=== PATIENT | female | born 1955 ===

== ENCOUNTER 2020-08-27 12:18 | Outpatient (REF) | payer MEDICARE, MEDICAID, SELFPAY ==
--- NOTE | 2020-08-27 | MM_ITS ---
EXAMINATION: MM SCREENING DIGITAL BREAST TOMOSYNTHESIS, BILATERAL CLINICAL INFORMATION: Screening. Asymptomatic. The lifetime risk of breast cancer based on the Tyrer-Cuzick Model is 7.6%. COMPARISON: Mammography: April 22, 2019 and studies dating back to August 24, 2010 TECHNIQUE: Digital breast tomosynthesis is performed in both the craniocaudal and mediolateral oblique views along with computer-aided detection (CAD). Synthesized 2D images are generated from the tomosynthesis. FINDINGS: The breasts are heterogeneously dense, which may obscure small masses (ACR BI-RADS breast composition Category c). There is a stable parenchymal pattern of the right breast with no new abnormal dominant masses or suspicious grouping of microcalcifications. Within the upper outer aspect of the left breast there are again noted be calcifications but which appear to be more indeterminate and spot magnification views are recommended. There is also noted to be some left axillary residual deodorant. MM/MM tomosynthesis screening BI IMPRESSION: Left breast calcifications upper outer aspect for further evaluation as described. ASSESSMENT: BI-RADS 0: Incomplete - Need Additional Imaging Evaluation RECOMMENDATION: 1. Additional views of the left breast 2. Targeted ultrasound if warranted after review of the additional views. 3. Radiology department staff will contact the patient for additional imaging. This patient's information was entered into a reminder system with a target due date for their next mammogram.
== END 2020-08-27 12:19 | disposition home or self-care (01) ==
LOC: HO.MAMMO 12:18
PROVIDERS: PCP Internal Medicine; Visit Provider Internal Medicine
DX: Z12.31 Encounter for screening mammogram for malignant neoplasm of breast (principal)
CPT/HCPCS: 77063; 77067

== ENCOUNTER 2020-09-25 10:04 | Outpatient (REF) | payer MEDICARE, MEDICAID, SELFPAY ==
[2020-09-25 11:13] LABS: Alanine Aminotransferase 27 U/L (0-31); Albumin Level 4.5 g/dL (3.5-5.0); Alkaline Phosphatase 58 U/L (39-117); Aspartate Amino Transferase 17 U/L (5-31); Bilirubin Direct 0.2 mg/dL (0.0-0.5); Bilirubin Total 0.5 mg/dL (0.0-1.0); Total Protein 7.4 g/dL (6.5-8.0)
[2020-09-25 11:17] LABS: Valproate 59.4 mcg/mL (50.0-100.0)
[2020-09-25 11:34] LABS: Ammonia 31 umol/L (13-55)
== END 2020-09-25 10:05 | disposition home or self-care (01) ==
LOC: HO.LAB 10:04
PROVIDERS: PCP Internal Medicine; Visit Provider General Practice
DX: F25.9 Schizoaffective disorder, unspecified (principal); Z79.899 Other long term (current) drug therapy
CPT/HCPCS: 80076; 80164; 82140

== ENCOUNTER 2020-10-02 15:02 | Outpatient (REF) | payer MEDICARE, MEDICAID, SELFPAY ==
--- NOTE | 2020-10-02 15:11 | MM_ITS ---
EXAMINATION: MM DIAGNOSTIC DIGITAL MAMMOGRAPHY, LEFT CLINICAL INFORMATION: Calcifications upper outer aspect COMPARISON: Mammography: August 27, 2020 and studies dating back to November 08, 2011 TECHNIQUE: Digital mammography is performed in the following views: Magnification views of the left breast in craniocaudal, 90 degree mediolateral, and exaggerated craniocaudal views. FINDINGS: The breasts are heterogeneously dense, which may obscure small masses (ACR BI-RADS breast composition Category c). Magnification views appear to show more calcifications than previously however there have calcifications present dating back to November 08, 2011. On 90 degree mediolateral view there is layering of milk of calcium on a majority of calcifications. No branching forms are identified. Results are provided to the patient at time of visit by the technologist. MM/MM added views LT IMPRESSION: Probably benign calcifications right breast ASSESSMENT: BI-RADS 3: Probably Benign RECOMMENDATION: Diagnostic mammography in 6 months. This patient's information was entered into a reminder system with a target due date for their next mammogram.
== END 2020-10-02 15:03 | disposition home or self-care (01) ==
LOC: HO.MAMMO 15:02
PROVIDERS: PCP Internal Medicine; Visit Provider Internal Medicine
DX: R92.1 Mammographic calcification found on diagnostic imaging of breast (principal)
CPT/HCPCS: 77065

== ENCOUNTER 2021-01-17 09:10 | Outpatient (REF) | payer MEDICARE, MEDICAID, SELFPAY ==
[2021-01-17 09:37] LABS: MANUAL DIFF FLAG NO
[2021-01-17 09:49] LABS: Basophils Absolute Auto 0.1 X10*3/uL (0.0-0.2); Basophils Percent Auto 0.9 % (0-2); Eosinophils Absolute Auto 0.2 X10*3/uL (0.0-0.4); Eosinophils Percent Auto 4.3 % (0-4); Hematocrit 41.3 % (37-47); Hemoglobin 13.5 g/dl (12.0-16.0); Imm Gran Abs Auto 0.03 X10*3/uL (0.00-0.03); Imm Gran Pct Auto 0.5 % (0.0-0.4); Lymphocytes Absolute Auto 2.2 X10*3/uL (1.2-4.9); Lymphocytes Percent Auto 40.2 % (20-40); Mean Corpuscular HGB Conc 32.7 g/dl (31.0-35.0); Mean Corpuscular Hemoglobin 31.8 pg (27.0-33.0); Mean Corpuscular Volume 97.4 fL (80-98); Mean Platelet Volume 10.4 fL (9.4-12.3); Monocytes Absolute Auto 0.8 X10*3/uL (0.1-1.2); Monocytes Percent Auto 14.9 % (2-11); Neutrophils Absolute Auto 2.2 X10*3/uL (2.0-8.3); Neutrophils Percent Auto 39.2 % (45-73); Platelet Count 216 X10*3/uL (160-400); Red Blood Count 4.24 X10*6/uL (4.20-5.50); Red Cell Distribution Width 13.2 % (11.0-16.0); White Blood Count 5.5 X10*3/uL (4.8-10.8)
[2021-01-17 10:08] LABS: Rheumatoid Factor < 15.0 IU/mL (<15.0)
[2021-01-17 10:09] LABS: Alanine Aminotransferase 36 U/L (0-31); Albumin Level 4.3 g/dL (3.5-5.0); Alkaline Phosphatase 61 U/L (39-117); Anion Gap 13 (12-20); Aspartate Amino Transferase 23 U/L (5-31); Bilirubin Total 0.3 mg/dL (0.0-1.0); Blood Urea Nitrogen 21 mg/dL (9-16); Calcium 9.8 mg/dL (8.4-10.2); Carbon Dioxide 29 mmol/L (22-29); Chloride 102 mmol/L (96-108); Cholesterol 195 mg/dL; Estimated Glomerular Filt Rate > 60; Glucose Random 93 mg/dL (60-115); HDL Cholesterol 41 mg/dL; LDL Cholesterol Calculated 125 mg/dl; Potassium 5.3 mmol/L (3.3-5.1); Sodium 139 mmol/L (135-145); Total Protein 7.2 g/dL (6.5-8.0); Triglycerides 149 mg/dL
[2021-01-17 10:32] LABS: Free T4 (Free Thyroxine) 1.05 ng/dL (0.71-1.85); Thyroid Stimulating Hormone 2.24 uIU/mL (0.32-4.0); Vitamin D 25-OH Total 18.6 ng/mL (>30)
[2021-01-19 09:10] LABS: Folate 7.1 ng/mL (> or = 4.0); Vitamin B12 706 pg/mL (200-900)
== END 2021-01-17 09:11 | disposition home or self-care (01) ==
LOC: HO.LAB 09:10
PROVIDERS: Absent Provider Nurse Practitioner Family; PCP Internal Medicine; Visit Provider Internal Medicine
DX: I10 Essential (primary) hypertension (principal); E78.00 Pure hypercholesterolemia, unspecified; E03.9 Hypothyroidism, unspecified; M25.561 Pain in right knee; M25.562 Pain in left knee
CPT/HCPCS: 36415; 80053; 80061; 82306; 82607; 82746; 84439; 84443; 85025; 86431

== ENCOUNTER 2021-04-01 12:32 | Outpatient (REF) | payer MEDICARE, MEDICAID, SELFPAY ==
--- NOTE | ~2021-04-01 | MM_ITS ---
EXAMINATION: MM DIAGNOSTIC DIGITAL BREAST TOMOSYNTHESIS, LEFT CLINICAL INFORMATION: Probable benign calcifications central and upper outer left breast for short interval six-month follow-up. The lifetime risk of breast cancer based on the Tyrer-Cuzick Model is 7%. COMPARISON: Mammography: 10/02/2020 08/27/2020, 05/22/2019, 05/18/2018, 04/07/2017, 03/18/2016 TECHNIQUE: Digital breast tomosynthesis is performed in both the craniocaudal and mediolateral oblique views along with computer-aided detection (CAD). Synthesized 2D images are generated from the tomosynthesis. Additional magnification CC and magnification ML views are obtained. FINDINGS: There are scattered areas of fibroglandular density (ACR BI-RADS breast composition Category b). The fibroglandular parenchymal pattern is similar to prior studies. There is no developing density or interval mass or architectural abnormality. Calcifications for follow-up again are predominantly upper outer quadrant with some lesser calcifications central upper outer. There are numerous punctate calcifications, only some of which show probable layering on the ML view. The number of calcifications are similar to prior diagnostic exam. Results are discussed with the patient and her aide at time of visit, using an sign language interpreter. If patient is able, attempt at stereotactic biopsy is suggested. Given patient body habitus and tremor, this may be optimally attempted on upright unit. If biopsy is not performed, then continued follow-up diagnostic mammography would be recommended, due in 6 months. Results and recommendation called to office ([place]) for Dr. Rosales on 04/01/2021. MM/MM tomosynthesis diagnostic LT IMPRESSION: Numerous punctate calcifications upper-outer quadrant left breast, only some of which may show layering on ML view. ASSESSMENT: BI-RADS 4: Suspicious RECOMMENDATION: Stereotactic biopsy left breast calcifications. This may be optimally attempted on upright unit. If biopsy is not performed, then continued follow-up diagnostic mammography would be recommended in 6 months. This patient's information was entered into a reminder system with a target due date for their next mammogram.
== END 2021-04-01 12:33 | disposition home or self-care (01) ==
LOC: HO.MAMMO 12:32
PROVIDERS: Visit Provider Internal Medicine
DX: R92.1 Mammographic calcification found on diagnostic imaging of breast (principal)
CPT/HCPCS: 77061; 77065

== ENCOUNTER → 2021-04-16 14:53 | Outpatient (BNVA) | payer MEDICARE, MEDICAID, SELFPAY | PROVIDERS: PCP Internal Medicine; Visit Provider Urology | DX: N32.81 Overactive bladder (principal); R39.15 Urgency of urination | CPT/HCPCS: 99212 ==

== ENCOUNTER → 2021-10-15 10:28 | Outpatient (BNVA) | payer MEDICARE, MEDICAID, SELFPAY | PROVIDERS: Visit Provider Urology | DX: N32.81 Overactive bladder (principal); R39.15 Urgency of urination | CPT/HCPCS: 51798; 99212 ==

== ENCOUNTER 2022-01-13 09:09 | Outpatient (REF) | payer MEDICARE, MEDICAID, SELFPAY ==
[2022-01-13 10:34] LABS: Valproate 60.7 mcg/mL (50.0-100.0)
[2022-01-13 10:38] LABS: Alanine Aminotransferase 21 U/L (0-31); Albumin Level 4.4 g/dL (3.5-5.0); Alkaline Phosphatase 53 U/L (39-117); Anion Gap 15 (12-20); Aspartate Amino Transferase 18 U/L (5-31); Bilirubin Direct < 0.2 mg/dL (0.0-0.5); Bilirubin Total 0.4 mg/dL (0.0-1.0); Blood Urea Nitrogen 13 mg/dL (9-16); Carbon Dioxide 26 mmol/L (22-29); Chloride 103 mmol/L (96-108); Estimated Glomerular Filt Rate > 60; Glucose Random 87 mg/dL (60-115); Potassium 5.3 mmol/L (3.3-5.1); Sodium 139 mmol/L (135-145); Total Protein 7.3 g/dL (6.5-8.0)
[2022-01-13 11:02] LABS: Thyroid Stimulating Hormone 2.01 uIU/mL (0.32-4.0)
[2022-01-13 11:03] LABS: Free T4 (Free Thyroxine) 1.07 ng/dL (0.71-1.85)
== END 2022-01-13 09:10 | disposition home or self-care (01) ==
LOC: HO.LAB 09:09
PROVIDERS: Absent Provider Internal Medicine; PCP Internal Medicine; Visit Provider General Practice
DX: F25.9 Schizoaffective disorder, unspecified (principal); E03.9 Hypothyroidism, unspecified; Z79.899 Other long term (current) drug therapy
CPT/HCPCS: 36415; 80053; 80076; 80164; 82248; 84439; 84443

== ENCOUNTER 2022-01-14 09:19 | Outpatient (REF) | payer MEDICARE, MEDICAID, SELFPAY | END 2022-01-14 09:20 | disposition home or self-care (01) | LOC: HO.MAMMO 09:19 | PROVIDERS: PCP Internal Medicine; Visit Provider Internal Medicine | DX: Z13.89 Encounter for screening for other disorder (principal) ==

== ENCOUNTER → 2022-01-27 12:47 | Outpatient (BNVA) | payer MEDICARE, MEDICAID, SELFPAY | PROVIDERS: PCP Internal Medicine; Visit Provider Urology | DX: Z13.89 Encounter for screening for other disorder (principal) | CPT/HCPCS: Q3014 ==

== ENCOUNTER 2022-03-25 08:42 | Outpatient (REF) | payer MEDICARE, MEDICAID, SELFPAY ==
[2022-03-25 09:03] LABS: MANUAL DIFF FLAG NO
[2022-03-25 09:45] LABS: Basophils Absolute Auto 0.1 X10*3/uL (0.0-0.2); Basophils Percent Auto 0.9 % (0-2); Eosinophils Absolute Auto 0.2 X10*3/uL (0.0-0.4); Eosinophils Percent Auto 2.8 % (0-4); Hematocrit 42.7 % (37.0-47.0); Hemoglobin 14.2 g/dl (12.0-16.0); Imm Gran Abs Auto 0.03 X10*3/uL (0.00-0.03); Imm Gran Pct Auto 0.5 % (0.0-0.4); Lymphocytes Absolute Auto 2.4 X10*3/uL (1.2-4.9); Lymphocytes Percent Auto 41.9 % (20-40); Mean Corpuscular HGB Conc 33.3 g/dl (31.0-35.0); Mean Corpuscular Hemoglobin 32.1 pg (27.0-33.0); Mean Corpuscular Volume 96.4 fL (80.0-98.0); Mean Platelet Volume 10.4 fL (9.4-12.3); Monocytes Absolute Auto 0.6 X10*3/uL (0.1-1.2); Monocytes Percent Auto 11.2 % (2-11); Neutrophils Absolute Auto 2.4 x10*3/uL (2.0-8.3); Neutrophils Percent Auto 42.7 % (45-73); Platelet Count 227 X10*3/uL (160-400); Red Blood Count 4.43 X10*6/uL (4.20-5.50); Red Cell Distribution Width 12.7 % (11.0-16.0); White Blood Count 5.7 X10*3/uL (4.8-10.8)
[2022-03-25 10:18] LABS: Alanine Aminotransferase 24 U/L (0-31); Albumin Level 4.4 g/dL (3.5-5.0); Alkaline Phosphatase 52 U/L (39-117); Anion Gap 12 (12-20); Aspartate Amino Transferase 21 U/L (5-31); Bilirubin Total 0.4 mg/dL (0.0-1.0); Blood Urea Nitrogen 17 mg/dL (9-16); Calcium 10.2 mg/dL (8.4-10.2); Carbon Dioxide 30 mmol/L (22-29); Chloride 101 mmol/L (96-108); Cholesterol 251 mg/dL; Estimated Glomerular Filt Rate > 60; Glucose Random 88 mg/dL (60-115); HDL Cholesterol 52 mg/dL; LDL Cholesterol Calculated 171 mg/dl; Potassium 5.3 mmol/L (3.3-5.1); Sodium 138 mmol/L (135-145); Total Protein 7.5 g/dL (6.5-8.0); Triglycerides 140 mg/dL
[2022-03-25 10:35] LABS: Valproate 68.7 mcg/mL (50.0-100.0)
[2022-03-25 10:40] LABS: Free T4 (Free Thyroxine) 1.08 ng/dL (0.71-1.85); Thyroid Stimulating Hormone 2.46 uIU/mL (0.32-4.0); Vitamin D 25-OH Total 42.7 ng/mL (>30)
[2022-03-25 11:12] LABS: Vitamin B12 940 pg/mL (200-900)
== END 2022-03-25 08:43 | disposition home or self-care (01) ==
LOC: HO.LAB 08:42
PROVIDERS: PCP Internal Medicine; Visit Provider Internal Medicine
DX: E78.00 Pure hypercholesterolemia, unspecified (principal); M81.0 Age-related osteoporosis without current pathological fracture
CPT/HCPCS: 36415; 80053; 80061; 80164; 82306; 82607; 82746; 84439; 84443; 85025

== ENCOUNTER → 2022-03-26 11:02 | Outpatient (BNVA) | payer MEDICARE, MEDICAID, SELFPAY | PROVIDERS: PCP Internal Medicine; Visit Provider Urology | DX: Z13.89 Encounter for screening for other disorder (principal) | CPT/HCPCS: Q3014 ==

== ENCOUNTER 2022-04-06 08:55 | Outpatient (REF) | payer MEDICARE, MEDICAID, SELFPAY ==
--- NOTE | ~2022-04-06 | MM_ITS ---
EXAMINATION: MM SCREENING DIGITAL BREAST TOMOSYNTHESIS, BILATERAL CLINICAL INFORMATION: Screening. Asymptomatic. Benign stereotactic biopsy left breast at [facility] (microcalcifications associated with columnar cell change, small hyalinized ducts and terminal duct lobular units. Fibroglandular breast tissue with lobular involution). The lifetime risk of breast cancer based on the Tyrer-Cuzick Model is 7%. COMPARISON: Mammography: 04/21/2021, 04/01/2021, 10/02/2020, 08/27/2020, 05/22/2019 TECHNIQUE: Digital breast tomosynthesis is performed in both the craniocaudal and mediolateral oblique views along with computer-aided detection (CAD). Synthesized 2D images are generated from the tomosynthesis. FINDINGS: There are scattered areas of fibroglandular density (ACR BI-RADS breast composition Category b). There are no significant masses, abnormal calcifications, or other abnormalities. There is biopsy clip marker left breast mid upper outer quadrant. Remaining punctate round calcifications are stable. The axilla and skin contours are unremarkable. MM/MM tomosynthesis screening BI IMPRESSION: No mammographic evidence of malignancy. ASSESSMENT: BI-RADS 2: Benign RECOMMENDATION: Routine annual mammography screening. This patient's information was entered into a reminder system with a target due date for their next mammogram.
== END 2022-04-06 08:56 | disposition home or self-care (01) ==
LOC: HO.MAMMO 08:55
PROVIDERS: PCP Internal Medicine; Visit Provider Internal Medicine
DX: Z12.31 Encounter for screening mammogram for malignant neoplasm of breast (principal)
CPT/HCPCS: 77063; 77067

== ENCOUNTER → 2022-06-25 14:36 | Outpatient (BNVA) | payer MEDICARE, MEDICAID, SELFPAY | PROVIDERS: Visit Provider Urology | DX: N32.81 Overactive bladder (principal) | CPT/HCPCS: 51798; 99212 ==

== ENCOUNTER 2022-07-29 07:57 | Outpatient (REF) | payer MEDICARE, MEDICAID, SELFPAY ==
--- NOTE | ~2022-07-29 | MM_ITS ---
EXAMINATION: BONE DENSITOMETRY CLINICAL INDICATION: Age-related osteoporosis without current pathological fracture. COMPARISON: None (current study represents initial baseline exam). TECHNIQUE: Using a [employer] DXA System (software version: 13.1) manufactured by [employer], dual-energy x-ray absorptiometry was performed of the lumbar spine and left hip. The images are of good technical quality. Summary results are attached. FINDINGS: AP SPINE L1-L4: BMD 1.260 g/cm2, Z-score 1.5, T-score 0.7, normal. LEFT FEMUR, NECK: BMD 0.996 g/cm2, Z-score 0.7, T-score -0.3, normal. LEFT FEMUR, TOTAL: BMD 1.1 g/cm2, Z-score 2.0, T-score 1.4, normal. IDENTIFIED RISK FACTORS: Menopause, hyperthyroidism. HISTORY OF FRACTURE: None listed. MEDICATIONS: Vitamin D. MM/XR DEXA axial skeleton IMPRESSION: 1. DIAGNOSIS: Normal bone density based on the lowest T-score value of -0.3 in the femoral neck applying World Health Organization criteria. 2. 10-YEAR FRACTURE RISK PREDICTION, FRAX: According to the guidelines, FRAX calculation should only be performed on patients in the osteopenia bone density category. Therefore, FRAX was not performed on this patient. 3. Treatment Recommendations: NOF guidelines recommend consideration for treatment in postmenopausal women and men age 50 and older presenting with the following: -A hip or vertebral (clinical or morphometric) fracture. -T-score less than or equal to -2.5 at the femoral neck or spine after appropriate evaluation to exclude secondary causes. -Low bone mass at the hip or spine and a 10-year fracture probability by FRAX of greater than or equal to 3% for hip fracture or greater than or equal to 20% for major osteoporotic fracture based on the [place] adapted WHO algorithm. 4. Other Recommendations: All treatment decisions require clinical judgment and consideration of individual patient factors, including patient preferences, comorbidities, previous drug use, risk factors not captured in the FRAX model (e.g. frailty, falls, vitamin D deficiency, increased bone turnover, interval significant decline in bone density) and possible under or overestimation of fracture risk by FRAX. FUTURE SCAN RECOMMENDATION: People with diagnosed cases of osteoporosis or at high risk for fracture should have regular bone mineral density tests. For patients eligible for Medicare, routine testing is allowed once every 2 years. The testing frequency can be increased to one year for patients who have rapidly progressing disease, those who are receiving or discontinuing medical therapy to restore bone mass, or have additional risk factors.
== END 2022-07-29 07:58 | disposition home or self-care (01) ==
LOC: HO.MAMMO 07:57
PROVIDERS: PCP Internal Medicine; Visit Provider Internal Medicine
DX: Z13.820 Encounter for screening for osteoporosis (principal); M81.0 Age-related osteoporosis without current pathological fracture; Z78.0 Asymptomatic menopausal state
CPT/HCPCS: 77080

== ENCOUNTER 2022-08-07 09:15 | Outpatient (REF) | payer MEDICARE, MEDICAID, SELFPAY ==
[2022-08-07 10:08] LABS: Alanine Aminotransferase 26 U/L (0-31); Albumin Level 4.4 g/dL (3.5-5.0); Alkaline Phosphatase 54 U/L (39-117); Anion Gap 15 (12-20); Aspartate Amino Transferase 21 U/L (5-31); Bilirubin Total 0.4 mg/dL (0.0-1.0); Blood Urea Nitrogen 14 mg/dL (9-16); Carbon Dioxide 30 mmol/L (22-29); Chloride 101 mmol/L (96-108); Cholesterol 237 mg/dL; Estimated Glomerular Filt Rate > 60; Glucose Random 90 mg/dL (60-115); HDL Cholesterol 53 mg/dL; LDL Cholesterol Calculated 157 mg/dl; Potassium 5.1 mmol/L (3.3-5.1); Sodium 141 mmol/L (135-145); Total Protein 7.3 g/dL (6.5-8.0); Triglycerides 137 mg/dL
[2022-08-07 10:09] LABS: Alanine Aminotransferase 25 U/L (0-31); Albumin Level 4.4 g/dL (3.5-5.0); Alkaline Phosphatase 54 U/L (39-117); Aspartate Amino Transferase 23 U/L (5-31); Bilirubin Direct < 0.2 mg/dL (0.0-0.5); Bilirubin Total 0.4 mg/dL (0.0-1.0); Total Protein 7.3 g/dL (6.5-8.0)
[2022-08-07 10:35] LABS: Valproate 68.3 mcg/mL (50.0-100.0)
== END 2022-08-07 09:16 | disposition home or self-care (01) ==
LOC: HO.LAB 09:15
PROVIDERS: PCP Internal Medicine; Visit Provider General Practice
DX: E78.00 Pure hypercholesterolemia, unspecified (principal); Z79.899 Other long term (current) drug therapy
CPT/HCPCS: 36415; 80053; 80061; 80076; 80164; 82248

== ENCOUNTER 2022-09-10 12:47 | Outpatient (REF) | payer MEDICARE, MEDICAID, SELFPAY ==
--- NOTE | ~2022-09-10 | XR_ITS ---
EXAMINATION: BILATERAL KNEE X-RAY CLINICAL INFORMATION: Pain COMPARISON: None TECHNIQUE: 2 views of each knee FINDINGS: Right: Bone alignment is normal. No fracture or dislocation. There is mild arthritis with small osteophytes at the medial femoral tibial and patellofemoral joints. There is no joint effusion. Left: Bone alignment is normal. No fracture or dislocation. Mild arthritis at the medial femoral tibial joint with small osteophytes. No joint effusion. XR/XR knee RT 2V IMPRESSION: Mild bilateral arthritis.
--- NOTE | ~2022-09-10 | XR_ITS ---
EXAMINATION: BILATERAL KNEE X-RAY CLINICAL INFORMATION: Pain COMPARISON: None TECHNIQUE: 2 views of each knee FINDINGS: Right: Bone alignment is normal. No fracture or dislocation. There is mild arthritis with small osteophytes at the medial femoral tibial and patellofemoral joints. There is no joint effusion. Left: Bone alignment is normal. No fracture or dislocation. Mild arthritis at the medial femoral tibial joint with small osteophytes. No joint effusion. XR/XR knee LT 2V IMPRESSION: Mild bilateral arthritis.
== END 2022-09-10 12:48 | disposition home or self-care (01) ==
LOC: HO.XRAY 12:47
PROVIDERS: PCP Internal Medicine; Visit Provider Internal Medicine
DX: M25.562 Pain in left knee (principal); M25.561 Pain in right knee
CPT/HCPCS: 73560

== ENCOUNTER → 2023-01-04 08:16 | Outpatient (BNVA) | payer MEDICARE, MEDICAID, SELFPAY | PROVIDERS: PCP Internal Medicine; Visit Provider Urology | DX: N32.81 Overactive bladder (principal); Z79.899 Other long term (current) drug therapy | CPT/HCPCS: Q3014 ==

== ENCOUNTER 2023-01-06 10:06 | Outpatient (REF) | payer MEDICARE, MEDICAID, SELFPAY ==
[2023-01-06 11:23] LABS: Alanine Aminotransferase 26 U/L (0-31); Albumin Level 4.3 g/dL (3.5-5.0); Alkaline Phosphatase 49 U/L (39-117); Anion Gap 12 (12-20); Aspartate Amino Transferase 19 U/L (5-31); Bilirubin Total 0.5 mg/dL (0.0-1.0); Blood Urea Nitrogen 17 mg/dL (9-16); Calcium 9.6 mg/dL (8.4-10.2); Carbon Dioxide 29 mmol/L (22-29); Chloride 106 mmol/L (96-108); Cholesterol 211 mg/dL; Estimated Glomerular Filt Rate > 60; Glucose Random 85 mg/dL (60-115); HDL Cholesterol 47 mg/dL; LDL Cholesterol Calculated 138 mg/dl; Potassium 5.1 mmol/L (3.3-5.1); Sodium 142 mmol/L (135-145); Total Protein 6.9 g/dL (6.5-8.0); Triglycerides 134 mg/dL
[2023-01-06 13:58] LABS: Valproate 61.3 mcg/mL (50.0-100.0)
[2023-01-06 14:03] LABS: Alanine Aminotransferase 24 U/L (0-31); Albumin Level 4.2 g/dL (3.5-5.0); Alkaline Phosphatase 50 U/L (39-117); Aspartate Amino Transferase 19 U/L (5-31); Bilirubin Direct < 0.2 mg/dL (0.0-0.5); Bilirubin Total 0.5 mg/dL (0.0-1.0); Total Protein 6.6 g/dL (6.5-8.0)
== END 2023-01-06 10:07 | disposition home or self-care (01) ==
LOC: HO.LAB 10:06
PROVIDERS: Absent Provider General Practice; PCP Internal Medicine; Visit Provider Internal Medicine
DX: E78.00 Pure hypercholesterolemia, unspecified (principal); F25.9 Schizoaffective disorder, unspecified; Z79.899 Other long term (current) drug therapy
CPT/HCPCS: 36415; 80053; 80061; 80076; 80164; 82248

== ENCOUNTER 2023-04-25 08:04 | Outpatient (REF) | payer MEDICARE, MEDICAID, SELFPAY ==
--- NOTE | ~2023-04-25 | MM_ITS ---
EXAMINATION: MM SCREENING DIGITAL BREAST TOMOSYNTHESIS, BILATERAL CLINICAL INFORMATION: Screening. Asymptomatic. The lifetime risk of breast cancer based on the Tyrer-Cuzick Model is 7.2%. COMPARISON: Mammography: Study is compared with the prior exams dating back to 2018. TECHNIQUE: Digital breast tomosynthesis is performed in both the craniocaudal and mediolateral oblique views along with computer-aided detection (CAD). Synthesized 2D images are generated from the tomosynthesis. FINDINGS: There are scattered areas of fibroglandular density (ACR BI-RADS breast composition Category b). There are no significant masses, abnormal calcifications, or other abnormalities. There is a tissue marker in the upper outer quadrant of the left breast from prior benign percutaneous biopsy. MM/MM tomosynthesis screening BI IMPRESSION: No mammographic evidence of malignancy. ASSESSMENT: BI-RADS BI-RADS 2 - Benign Findings RECOMMENDATION: Routine annual mammography screening. 1 year F/U This patient's information was entered into a reminder system with a target due date for their next mammogram.
== END 2023-04-25 08:05 | disposition home or self-care (01) ==
LOC: HO.MAMMO 08:04
PROVIDERS: Visit Provider Internal Medicine
DX: Z12.31 Encounter for screening mammogram for malignant neoplasm of breast (principal)
CPT/HCPCS: 77063; 77067

== ENCOUNTER → 2023-04-25 08:15 | Outpatient (BNV) | payer MEDICARE, MEDICAID, SELFPAY | PROVIDERS: Visit Provider Radiology Diagnostic Radiology | DX: Z12.31 Encounter for screening mammogram for malignant neoplasm of breast (principal) | CPT/HCPCS: 77063; 77067 ==

== ENCOUNTER 2023-06-10 09:28 | Outpatient (AMB) | payer MEDICARE, MEDICAID, SELFPAY ==
[2023-06-10 09:40] VITALS: BP 122/76; PULSE 66; TEMP 36.6; O2SAT 98; BMI 31.1
--- NOTE | 2023-06-10 09:40 | AM.OFFWIN_ITS ---
Intake Vital Signs 06/10/23 09:40 Height 5 ft 5 in Weight 187 lb BMI 31.1 BP 122/76 Blood Pressure Location Lt brachial Position Sitting Pulse 66 Pulse Source Pulse Oximeter Temp 97.9 F Temp Source Temporal Artery Scan Pulse Oximetry (%) 98 Oxygen Delivery Method Room Air Intake Visit Reasons: EP AB Pain/?Rash LT side Leg/Thigh Intake Note: pt is here for abd pain, rash on left leg/thigh Patient Tobacco Use Status: Never used Tobacco Allergies Penicillins [PENICILLINS] Allergy (Unknown, Verified 06/10/23 09:44) UNKNOWN HPI HPI Comments History of Present Illness Details This is a 68-year-old female who presents to the office today for sick visit. Patient complaining of right lower quadrant abdominal pain x1 week. Patient denies associated nausea/vomiting/diarrhea. She denies associated fever/chills. She denies any associated melena/hematochezia. Her last bowel movement was this morning and was normal. She denies dysuria or hematuria, but does report some mildly increased urinary frequency. She denies any chest pain or shortness of breath. Patient also reports a persistent rash to her left groin for the past several years. She is being treated with nystatin powder but they have not noticed much of an improvement. Positive right lower quadrant tenderness to palpation, decreased bowel sounds + fungal rash to left inguinal area Sent to ER for CT AP to rule out appendicitis Nystatin cream [facility] Medical History (Updated 01/25/23 @ 13:45 by Barbara Rosales MD) Age-related osteoporosis without current pathological fracture B-cell lymphoma Cataract, right eye COVID-19 virus infection Fatty liver History of tuberculosis Hypercholesterolemia Hypertension Hypothyroidism Knee pain, bilateral Knee pain, left Mental and behavioral problem Obesity (BMI 30-39.9) Obstructive sleep apnea Schizophrenia Urinary incontinence Urinary urgency Vitamin D deficiency Surgical History History of cataract surgery Family History (Updated 01/25/23 @ 13:13 by Clara Holbrook CMA) Father CVD (cardiovascular disease) Mother CVD (cardiovascular disease) Other Mental health disorder Social History Housing: Apartment Alcohol intake: never Patient Tobacco Use Status: Never used Tobacco e-Cigarette/Vaping Use: Never Used Second Hand Smoke Exposure: No Current occupational status: disabled Cognitive needs: Yes Hearing needs: No Vision needs: Yes Review of Systems Const All systems reviewed & are unremarkable except as noted in HPI and below Reports no additional complaints Eyes Reports no additional complaints ENT Reports no additional complaints Card Reports no additional complaints Resp Reports no additional complaints GI Reports no additional complaints and Reports abdominal pain Reports no additional complaints Musc Reports no additional complaints Skin/Breast Reports system reviewed and no additional complaints, except as documented and Reports rash Neuro Reports no additional complaints Psych Reports no additional complaints Endo Reports no additional complaints Saurabh/Lymph Reports no additional complaints Aller/Immun Reports no additional complaints Physical Exam Vital Signs: Last Vital Signs Temp 97.9 F 06/10/23 09:40 Pulse 66 06/10/23 09:40 BP 122/76 06/10/23 09:40 Pulse Ox 98 06/10/23 09:40 Oxygen Delivery Method Room Air 06/10/23 09:40 BMI result Body Mass Index 31.1 Const General: cooperative, healthy appearing, no acute distress and well developed Orientation/consciousness: patient oriented x3 HEENT Head: Yes normal to inspection Ears: hearing grossly normal bilaterally General nose exam: Normal external nose present Face and sinus: Yes normal facial exam Mouth: Normal oral and palatal mucosa present Eyes General: appearance normal, both eyes and all related structures Pupils: Equal, round and reactive pupils present EOM: EOMs intact bilaterally Resp Effort & Inspection: normal respiratory effort and no respiratory distress Auscultation: clear to auscultation bilaterally Cardio Rate: regular rate Rhythm: regular rhythm Heart sounds: no gallops, no murmurs and no rubs Peripheral pulses: Peripheral pulses 2+ throughout GI Inspection: No distended Palpation (GI): Soft to palpation and Tenderness to palpation present (GI) in the RLQ Auscultation: Hypoactive bowel sounds present Skin Other: Beefy erythematous rash of left inguinal region. No fluctuation or indurations. No purulence drainage. Neuro General: patient oriented x3 Cranial nerves: Yes CN's II-XII intact bilaterally and Yes Equal, round and reactive pupils present Gait exam (Neuro): Normal gait present Motor exam (neuro): 5/5 motor strength present throughout Extrem General: Yes normal to inspection, Yes full ROM and Yes no clubbing, cyanosis or edema Psych Appearance: grossly normal Mental Status: mental status grossly normal Results AMB Urinalysis, Automated UA Leukoctes 0 [place]/uL Last Edit by Ascencion Castro CMA on 06/10/23 10:01 UA Nitrite Negative Last Edit by Ascencion Castro CMA on 06/10/23 10:01 UA Urobilinogen 0.2 mg/dL Last Edit by Ascencion Castro CMA on 06/10/23 10 :01 UA Protein 0 mg/dL Last Edit by Ascencion Castro CMA on 06/10/23 10:01 UA pH 7.5 Last Edit by Ascencion Castro CMA on 06/10/23 10:01 UA Blood 0 [place]/uL Last Edit by Ascencion Castro CMA on 06/10/23 10:01 UA Specific [place] 1.010 Last Edit by Ascencion Castro CMA on 06/10/23 10:01 UA Ketone Negative Last Edit by Ascencion Castro CMA on 06/10/23 10:01 UA Bilirubin 0 mg/dL Last Edit by Ascencion Castro CMA on 06/10/23 10:01 UA Glucose 0 mg/dL Last Edit by Ascencion Castro CMA on 06/10/23 10:01 Assessment & Plan Assessment & Plan (1) Right lower quadrant abdominal pain: Code(s): R10.31 - Right lower quadrant pain (2) Candidal intertrigo: Code(s): B37.2 - Candidiasis of skin and nail Plan This is a 68-year-old female presented to the walk-in Clinic in the setting of right lower quadrant abdominal pain x1 week. On physical examination, patient has significant right lower quadrant abdominal tenderness to palpation as well as decreased bowel sounds. I recommended patient proceed directly to the emergency room for CT abdomen/pelvis to rule out acute appendicitis. Patient and her caregiver verbalized understanding and they are in agreement with the plan and they will proceed directly to the emergency room. Patient also has evidence of intertrigo candidiasis of her left inguinal region. Prescription sent for nystatin cream twice daily. Orders: Orders AMB Urinalysis Automated Today Z13.9 - Encounter for screening, unspecified Medications: New nystatin 1 appl topical BID 30 grams 0RF Coding Level of Care Code Est Pt Level 3 (05281) Diagnoses Right lower quadrant abdominal pain R10.31 Candidal intertrigo B37.2
== END 2023-06-10 10:33 | disposition home or self-care (01) ==
PROVIDERS: PCP Internal Medicine; Visit Provider Physician Assistant Medical
DX: R10.31 Right lower quadrant pain (principal); B37.2 Candidiasis of skin and nail
CPT/HCPCS: 81003; 99213

== ENCOUNTER 2023-06-20 09:04 | Outpatient (AMB) | payer MEDICARE, MEDICAID, SELFPAY ==
[2023-06-20 09:12] VITALS: BP 128/72; PULSE 76; O2SAT 97; BMI 30.4
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
== END 2023-06-20 09:43 | disposition home or self-care (01) ==
PROVIDERS: Visit Provider Internal Medicine
DX: I10 Essential (primary) hypertension (principal); F20.9 Schizophrenia, unspecified; E03.9 Hypothyroidism, unspecified; Z68.30 Body mass index [BMI] 30.0-30.9, adult; E66.9 Obesity, unspecified; E78.00 Pure hypercholesterolemia, unspecified; R93.89 Abnormal findings on diagnostic imaging of other specified body structures; B35.4 Tinea corporis; R10.31 Right lower quadrant pain
CPT/HCPCS: 99214

== ENCOUNTER 2023-06-23 13:21 | Emergency (ER) | payer MEDICARE, MEDICAID, SELFPAY ==
--- NOTE | ~2023-06-23 | US_ITS ---
EXAMINATION: US ABDOMEN LIMITED CLINICAL INFORMATION: Right upper quadrant pain. COMPARISON: 08/26/2014 TECHNIQUE: Real-time imaging of the right upper quadrant abdominal viscera. FINDINGS: PANCREAS: Limited visualization. LIVER: The liver is normal in size. The liver contour is normal. Parenchymal echogenicity is normal. No focal hepatic lesion. There is no intrahepatic biliary duct dilatation seen. GALLBLADDER: The gallbladder is physiologically distended without evidence of stones, sludge, polyps, wall thickening or pericholecystic fluid. COMMON BILE DUCT: Normal in caliber measuring 0.8 cm in diameter. RIGHT KIDNEY: Possible caliectasis in the lower pole. No renal calculi or focal parenchymal lesions. The kidney measures 11.4 cm in maximum dimension. FREE FLUID: None. US/US abdomen limited IMPRESSION: Possible right renal lower pole caliectasis.
[2023-06-23 13:27] VITALS: BP 106/74; PULSE 91; RESP 16; TEMP 36.7; O2SAT 95; BMI 35.5
--- NOTE | 2023-06-23 13:30 | ED.GENADULT ---
HPI - General Adult General Chief complaint: Abdominal Pain Stated complaint: R side pain Time Seen by Provider: 06/23/23 14:01 Source: patient, family and other (staff at bedside) Mode of arrival: ambulatory History of Present Illness HPI narrative: 68 yo Malaysian speaking female with history of Parkinson's disease, schizophrenia, HTN, hypothyroidism, constipation presents to the ER for evaluation of right upper quadrant abdominal pain for the last 4-6 weeks. History obtained with the assistance of long-term staff at the bedside. They states she has been complaining of intermittent right upper quadrant abdominal pain that comes and goes. It does not seem to be associated with eating. She went to [facility] couple of weeks ago where she had lab work done, and ultrasound as well as a CT scan that were all unremarkable. Patient was told to take Tylenol and Motrin with intermittent improvement in the pain. She was brought back to the ER today for re-evaluation because she was complaining of the pain. She has not had any urinary symptoms, nausea, vomiting, diarrhea. She is moving her bowels normally. No injury or falls. No chest pain or shortness of breath. MD complaint: RUQ pain Onset (ago): month(s) Location: abdomen Radiation: non-radiation Pain Consistency: intermittent Relieving factors: none Exacerbating factors: none Associated symptoms: denies other symptoms Treatments prior to arrival: none Related Data Home Medications Medication Instructions Recorded Confirmed aripiprazole 10 mg tablet (Abilify) 10 mg PO DAILY 09/05/20 03/23/23 trazodone 150 mg tablet 150 mg PO DAILY 09/05/20 03/23/23 CPAP #1 ea 02/25/21 03/23/23 ketoconazole 2 % shampoo topical 01/27/22 03/23/23 benztropine 0.5 mg tablet 0.5 mg PO BID 12/13/22 03/23/23 carboxymethylcellulose 0.5 1 drp ophthalmic (eye) BID 01/25/23 03/23/23 %-glycerin 0.9 % eye drops (Refresh Optive) divalproex 250 mg tablet,delayed 250 mg PO QPM 01/25/23 03/23/23 release tobramycin 0.3 %-dexamethasone 0.1 1 drp ophthalmic (eye) .QD 01/25/23 03/23/23 % eye drops,suspension (TobraDex) vit C 250 mg-vit E 90 mg-zinc 40 1 tab PO .QD 01/25/23 03/23/23 mg-copper 1 pg-[id number] capsule (PreserVision AREDS-2) Previous Rx's Medication Instructions Recorded divalproex 500 mg tablet,delayed 500 mg PO QAM #90 tabs 10/22/20 release (Depakote) clotrimazole 1 % topical cream 1 appl topical BID 4 weeks #45 03/24/21 grams triamcinolone acetonide 0.5 % 1 appl topical BID 7 days #15 grams 01/19/22 topical cream sulfacetamide sodium 10 % eye 2 drp ophthalmic (eye) Q4H 7 days 05/12/22 drops (Bleph-10) #5 mL miconazole nitrate 2 % topical 1 appl topical BID #71 grams 07/09/22 powder (Zeasorb AF) cholecalciferol (vitamin D3) 50 50 mcg PO DAILY #90 caps 09/06/22 mcg (2,000 unit) capsule atorvastatin 20 mg tablet 20 mg PO BEDTIME 30 days #30 tabs 09/09/22 ammonium lactate 12 % lotion 1 appl topical BID #400 grams 09/23/22 acetaminophen 650 mg 650 mg PO Q8H 30 days #90 tabs 10/21/22 tablet,extended release (Tylenol Arthritis Pain) levothyroxine 100 mcg tablet 100 mcg PO QAM #90 tabs 11/19/22 docusate sodium 100 mg capsule 100 mg PO DAILY #90 caps 11/20/22 (Colace) nebivolol 10 mg tablet (Bystolic) 10 mg PO DAILY #90 tabs 12/21/22 mirabegron 50 mg tablet,extended 50 mg PO DAILY 90 days #90 tabs 01/04/23 release 24 hr (Myrbetriq) diclofenac sodium 1 % topical gel 4 g topical BID PRN knee pain 30 01/25/23 (Voltaren Arthritis Pain) days #100 grams divalproex 500 mg tablet,delayed 750 mg PO QPM #90 tabs 01/25/23 release (Depakote) lisinopril 40 mg tablet 40 mg PO QAM #90 tabs 03/12/23 tolterodine 4 mg capsule,extended 4 mg PO DAILY 90 days #90 caps 05/25/23 release 24 hr nystatin 100,000 unit/gram topical 1 appl topical BID #60 grams 06/20/23 cream Allergies Allergy/AdvReac Type Severity Reaction Status Date / Time Penicillins [PENICILLINS] Allergy Unknown UNKNOWN Verified 06/23/23 13:33 Review of Systems Review of Systems: Yes all other systems are reviewed and are negative [facility] Past Medical History Medical History (Updated 06/24/23 @ 00:01 by Alonso Guzmán) Age-related osteoporosis without current pathological fracture B-cell lymphoma Cataract, right eye COVID-19 virus infection Fatty liver History of tuberculosis Hypercholesterolemia Hypertension Hypothyroidism Knee pain, bilateral Knee pain, left Mental and behavioral problem Obesity (BMI 30-39.9) Obstructive sleep apnea Schizophrenia Urinary incontinence Urinary urgency Vitamin D deficiency Surgical History History of cataract surgery Family History Family History (Updated 01/25/23 @ 13:13 by Clara Holbrook [facility]) Father CVD (cardiovascular disease) Mother CVD (cardiovascular disease) Other Mental health disorder Social History Social History Housing: Apartment Alcohol intake: never Patient Tobacco Use Status: Never used Tobacco e-Cigarette/Vaping Use: Never Used Second Hand Smoke Exposure: No Advance Directives: No Current occupational status: disabled Cognitive needs: Yes Hearing needs: No Vision needs: Yes Physical Exam ED Vital Signs: Vital Signs - 24 hr 06/23/23 13:27 06/23/23 14:23 06/23/23 15:54 Temperature 98.1 F 97.7 F Pulse Rate 91 71 68 Respiratory Rate 16 20 15 Blood Pressure 106/74 143/73 H 140/63 H Pulse Oximetry 95 96 96 Oxygen Delivery Method Room Air Room Air Room Air BMI result Body Mass Index 35.5 Appearance: Alert. Oriented X3. No acute distress. Head: normocephalic, atraumatic. Eyes: Pupils equal, round and reactive to light. ENT: Pharynx normal. No tonsillar swelling or exudate. Neck: Normal inspection. Neck supple. CVS: Normal heart rate and rhythm. Pulses normal. Respiratory: No respiratory distress. Breath sounds normal. Abdomen: Soft with mild tenderness to deep palpation only in the RUQ and epigastric area, normal active +BS x4 Skin: Skin warm and dry. Normal skin color. Normal skin turgor. No rashes. Extremities: No lower extremity edema. No joint swelling. Resting tremor of the UE Neuro/psych: awake, alert, follows commands and moves all extremities. nonfocal, tremulous Course Course Course Narrative: RME: 68 yold female with pmh of parkinsonian presents to the ED for right sided ( upper quadrant) abdominal pain for one michelle. Daughter states two weeks ago seen at [facility] normal US and CT sacn. NO symptoms. NO flank pain or back pain. labs ordered. Medical Decision Making Medical Decision Making [facility] Narrative: 68-year-old female presents to the ER for evaluation of right upper quadrant abdominal pain that comes and goes for the last 4-6 weeks. No nausea, vomiting, diarrhea. No tenderness on examination. Lab workup was unremarkable. Ultrasound is unremarkable. At this time etiology is unclear but patient's exam and workup are reassuring. Comfortable discharge home with outpatient follow-up. Patient is stable for discharge. Differential Diagnosis Differential Diagnoses: The differential diagnosis associated with the presentation includes biliary colic, acute cholecystitis, pyelonephritis, UTI, rib fracture Admission/Observation Consideration of admission/observation: Escalation of care including admission/observation considered recurrent RUQ pain, Considered observation versus admission however workup was unremarkable Lab Data [facility] Lab Attestation statement: I reviewed the patient's lab results. normal LFTs 06/23/23 13:40 06/23/23 13:40 Labs: Lab Results 06/23/23 06/23/23 06/23/23 Range/Units 13:40 13:40 14:35 WBC 6.3 (4.8-10.8) X10*3/uL RBC 4.31 (4.20-5.50) X10*6/uL Hgb 13.7 (12.0-16.0) g/dl Hct 41.1 (37.0-47.0) % MCV 95.4 (80.0-98.0) fL MCH 31.8 (27.0-33.0) pg MCHC 33.3 (31.0-35.0) g/dl RDW 12.8 (11.0-16.0) % Plt Count 222 (160-400) X10*3/uL MPV 9.9 (9.4-12.3) fL Immature Gran % (Auto) 0.3 (0.0-0.4) % Neut % (Auto) 44.2 L (45-73) % Lymph % (Auto) 40.4 H (20-40) % [place] % (Auto) 12.3 H (2-11) % Eos % (Auto) 2.2 (0-4) % Baso % (Auto) 0.6 (0-2) % Lymph # (Auto) 2.5 (1.2-4.9) X10*3/uL [place] # (Auto) 0.8 (0.1-1.2) X10*3/uL Eos # (Auto) 0.1 (0.0-0.4) X10*3/uL Baso # (Auto) 0.0 (0.0-0.2) X10*3/uL Abs Immat Gran (auto) 0.02 (0.00-0.03) X10*3/uL Absolute Neuts (auto) 2.8 (2.0-8.3) x10*3/uL Absolute Nucleated RBC 0.000 (0.0-0.012) X10*3/uL Nucleated RBC % (auto) 0.0 (0.0-0.2) /100WBC Sodium 137 (135-145) mmol/L Potassium 5.0 (3.3-5.1) mmol/L Chloride 102 (96-108) mmol/L Carbon Dioxide 30 H (22-29) mmol/L Anion Gap 10 L (12-20) BUN 17 H (9-16) mg/dL Creatinine 0.74 (0.5-1.4) mg/dL Estim Creat Clear Calc 74.0 Estimated GFR > 60 Random Glucose 83 (60-115) mg/dL Calcium 9.9 (8.4-10.2) mg/dL Total Bilirubin 0.4 (0.0-1.0) mg/dL AST 21 (5-31) U/L ALT 23 (0-31) U/L Alkaline Phosphatase 49 (39-117) U/L Total Protein 7.3 (6.5-8.0) g/dL Albumin 4.2 (3.5-5.0) g/dL Lipase 27 (8-78) U/L Urine Color Yellow Urine Appearance Clear Urine pH 6.5 (5.0-9.0) Ur Specific [place] 1.015 (1.005-1.025) Urine Protein Negative (Neg-Trace) mg/dL Urine Glucose (UA) Negative (Negative) mg/dL Urine Ketones Negative (Negative) mg/dL Urine Blood Negative (Negative) Urine Nitrite Negative (Negative) Ur Leukocyte Esterase Moderate (2+) H (Negative) Urine RBC 0-2 (0-2) /HPF Urine WBC 6-10 H (0-5) /HPF Ur Squamous Epith Cells 0-2 (0-2) /HPF Urine Bacteria None Seen (None Seen) Hyaline Casts 0-2 (0-2) /LPF Independent Interpretation I performed an independent interpretation of an: Ultrasound Interpretation: Normal visualization of the gallbladder, no gallstones seen. Agrees radiologist read Radiology Impression Discussion of test interpretation with radiology: I have reviewed the radiologist's reading. Radiologist Impression: EXAMINATION: US ABDOMEN LIMITED CLINICAL INFORMATION: Right upper quadrant pain. COMPARISON: 08/26/2014 TECHNIQUE: Real-time imaging of the right upper quadrant abdominal viscera. FINDINGS: PANCREAS: Limited visualization. LIVER: The liver is normal in size. The liver contour is normal. Parenchymal echogenicity is normal. No focal hepatic lesion. There is no intrahepatic biliary duct dilatation seen. GALLBLADDER: The gallbladder is physiologically distended without evidence of stones, sludge, polyps, wall thickening or pericholecystic fluid. COMMON BILE DUCT: Normal in caliber measuring 0.8 cm in diameter. RIGHT KIDNEY: Possible caliectasis in the lower pole. No renal calculi or focal parenchymal lesions. The kidney measures 11.4 cm in maximum dimension. FREE FLUID: None. US/US abdomen limited IMPRESSION: Possible right renal lower pole caliectasis. Independent Historian Clinical information obtained from an independent historian. History obtained from or confirmed by: Other ( staff from the long-term) External Record Review External record reviewed: Outside ED record Prescription Management I considered prescription management with: Pain Medication Chronic Conditions Patient?s care impacted by: Hypertension and Other ( Parkinson's disease) Critical Care Time Critical Care Time Critical Care Time: No Discharge Plan Discharge Clinical Impression: Abdominal pain Patient Disposition: Home, Self-Care Instructions: Abdominal Pain (ED) Additional Instructions: lab workup today was unremarkable abdominal ultrasound did not show any causes of your pain recommend increasing your water and fiber intake you can try over the counter stool softeners and laxatives as needed to have regular bowel movements recommend following up with GI for further evaluation and treatment. If you develop new or worsening symptoms call 911 or come back to the ER for further evaluation. El an?lisis de laboratorio de hoy no fue notable. La ecograf?a abdominal no mostr? ninguna causa de garcia dolor. Recomiendo aumentar el consumo de agua y fibra. Puede probar laxantes y ablandadores de heces de venta michael seg?n sea necesario para defecar con regularidad. Se recomienda realizar un seguimiento con GI para glory evaluaci?n y tratamiento adicionales. Si desarrolla s?ntomas nuevos o que empeoran, llame al 911 o regrese a la anna de emergencias para glory evaluaci?n adicional. Prescriptions: No Action divalproex [Depakote] 500 mg tablet,delayed release (DR/EC) 500 mg PO QAM Qty: 90 2RF clotrimazole 1 % cream 1 appl topical BID 28 Days Qty: 45 2RF miconazole nitrate [Zeasorb AF] 2 % powder 1 appl topical BID Qty: 71 11RF cholecalciferol (vitamin D3) 50 mcg (2,000 unit) capsule 50 mcg PO DAILY Qty: 90 3RF ammonium lactate 12 % lotion 1 appl topical BID Qty: 400 5RF acetaminophen [Tylenol Arthritis Pain] 650 mg tablet extended release 650 mg PO Q8H 30 Days Qty: 90 0RF levothyroxine 100 mcg tablet 100 mcg PO QAM Qty: 90 3RF docusate sodium [Colace] 100 mg capsule 100 mg PO DAILY Qty: 90 3RF Bystolic 10 mg tablet 10 mg PO DAILY Qty: 90 2RF lisinopril 40 mg tablet 40 mg PO QAM Qty: 90 3RF tolterodine 4 mg capsule,extended release 24hr 4 mg PO DAILY 90 Days Qty: 90 1RF aripiprazole [Abilify] 10 mg tablet 10 mg PO DAILY trazodone 150 mg tablet 150 mg PO DAILY (DME) CPAP 0 .Route .MEDSUPPLY Qty: 1 PreserVision AREDS-2 250-90-40-1 mg capsule 1 tab PO .QD Refresh Optive 0.5-0.9 % drops 1 drp ophthalmic (eye) BID tobramycin-dexamethasone [TobraDex] 0.3-0.1 % drops,suspension 1 drp ophthalmic (eye) .QD diclofenac sodium [Voltaren Arthritis Pain] 1 % gel 4 g topical BID PRN (Reason: knee pain) 30 Days Qty: 100 2RF Rx Instructions: apply to single knee, ankle, foot; for foot includes sole/toes/top of foot divalproex [Depakote] 500 mg tablet,delayed release (DR/EC) 750 mg PO QPM Qty: 90 0RF sulfacetamide sodium [Bleph-10] 10 % drops 2 drp ophthalmic (eye) Q4H 7 Days Qty: 5 0RF atorvastatin 20 mg tablet 20 mg PO BEDTIME 30 Days Qty: 30 11RF triamcinolone acetonide 0.5 % cream 1 appl topical BID 7 Days Qty: 15 0RF Rx Instructions: Apply a thin film bilateral ears for 1 week benztropine 0.5 mg tablet 0.5 mg PO BID Rx Instructions: Neurology nystatin 100,000 unit/gram cream 1 appl topical BID Qty: 60 3RF ketoconazole 2 % shampoo topical divalproex 250 mg tablet,delayed release (DR/EC) 250 mg PO QPM Patient Comments: 250 mg + 500 mg Qpm Myrbetriq 50 mg tablet extended release 24 hr 50 mg PO DAILY 90 Days Qty: 90 2RF Referrals: [facility] [Provider Group] Barbara Rosales MD [Primary Care Provider] - Stand Alone Forms: Work/School Release Interventions: ED Discharge Assessment Last Done: 06/23/23 16:04 Discharge Date/Time: 06/23/23 16:06 Print Language: Uruguayan
[2023-06-23 13:44] LABS: MANUAL DIFF FLAG NO
[2023-06-23 13:46] LABS: Basophils Percent Auto 0.6 % (0-2); Eosinophils Absolute Auto 0.1 X10*3/uL (0.0-0.4); Eosinophils Percent Auto 2.2 % (0-4); Hematocrit 41.1 % (37.0-47.0); Hemoglobin 13.7 g/dl (12.0-16.0); Imm Gran Abs Auto 0.02 X10*3/uL (0.00-0.03); Imm Gran Pct Auto 0.3 % (0.0-0.4); Lymphocytes Absolute Auto 2.5 X10*3/uL (1.2-4.9); Lymphocytes Percent Auto 40.4 % (20-40); Mean Corpuscular HGB Conc 33.3 g/dl (31.0-35.0); Mean Corpuscular Hemoglobin 31.8 pg (27.0-33.0); Mean Corpuscular Volume 95.4 fL (80.0-98.0); Mean Platelet Volume 9.9 fL (9.4-12.3); Monocytes Absolute Auto 0.8 X10*3/uL (0.1-1.2); Monocytes Percent Auto 12.3 % (2-11); Neutrophils Absolute Auto 2.8 x10*3/uL (2.0-8.3); Neutrophils Percent Auto 44.2 % (45-73); Platelet Count 222 X10*3/uL (160-400); Red Blood Count 4.31 X10*6/uL (4.20-5.50); Red Cell Distribution Width 12.8 % (11.0-16.0); White Blood Count 6.3 X10*3/uL (4.8-10.8)
[2023-06-23 14:02] LABS: Alanine Aminotransferase 23 U/L (0-31); Albumin Level 4.2 g/dL (3.5-5.0); Alkaline Phosphatase 49 U/L (39-117); Anion Gap 10 (12-20); Aspartate Amino Transferase 21 U/L (5-31); Bilirubin Total 0.4 mg/dL (0.0-1.0); Blood Urea Nitrogen 17 mg/dL (9-16); Calcium 9.9 mg/dL (8.4-10.2); Carbon Dioxide 30 mmol/L (22-29); Chloride 102 mmol/L (96-108); Estimated Glomerular Filt Rate > 60; Glucose Random 83 mg/dL (60-115); Lipase 27 U/L (8-78); Sodium 137 mmol/L (135-145); Total Protein 7.3 g/dL (6.5-8.0)
[2023-06-23 14:23] VITALS: BP 143/73; PULSE 71; RESP 20; O2SAT 96
[2023-06-23 14:41] LABS: Appearance Urine Clear; Color Urine Yellow; Glucose Urine UA Negative (Negative); Leukocyte Esterase Urine Moderate (2+) (Negative); Nitrite Urine Negative (Negative); PH 6.5 (5.0-9.0); Specific Gravity - Urine 1.015 (1.005-1.025); UMIC TRIGGER UACC YES; Urine Blood Negative (Negative); Urine Ketones Negative (Negative); Urine Protein Negative (Neg-Trace)
[2023-06-23 14:46] LABS: Bacteria Urine None Seen (None Seen); Hyaline Casts Urine 0-2 /LPF (0-2); RBC Urine 0-2 /HPF (0-2); Squamous Epithelial Cell Urine 0-2 /HPF (0-2); UACC Culture Trigger YES
[2023-06-23 15:54] VITALS: BP 140/63; PULSE 68; RESP 15; TEMP 36.5; O2SAT 96
== END 2023-06-23 16:06 | disposition home or self-care (01) ==
PROVIDERS: Physician Assistant; Emergency Provider Emergency Medicine; PCP Internal Medicine
DX: R10.11 Right upper quadrant pain (principal); I10 Essential (primary) hypertension; E78.00 Pure hypercholesterolemia, unspecified; G20 Parkinson's disease; Z79.899 Other long term (current) drug therapy
CPT/HCPCS: 36415; 76705; 80053; 81001; 83690; 85025; 87086; 99283; 99284

== ENCOUNTER 2023-07-05 11:15 | Outpatient (AMB) | payer MEDICARE, MEDICAID, SELFPAY ==
--- NOTE | 2023-07-05 11:18 | MHC.PC.OV ---
Vital Signs 07/05/23 11:20 Height 5 ft 1 in Weight 183 lb 8 oz BMI 34.7 BP 128/70 Blood Pressure Location Lt brachial Position Sitting Pulse 61 Pulse Source Pulse Oximeter Pulse Oximetry (%) 98 Oxygen Delivery Method Room Air Intake Visit Reasons: [facility] [place] pain 06/23/23 Intake Note: Patient is here to follow-up after a visit the emergency department at [facility] [place] on 06/23/23. Requesting letter to return to Day Program Silversmith Apprentice Required: Yes Silversmith Apprentice Language: Health Service Coordinator Name: Lizette(staff) Information Interpreted: non-clinical & clinical Block Mechanic: Present Accompanied by: Staff Allergies Penicillins [PENICILLINS] Allergy (Unknown, Verified 07/05/23 11:20) UNKNOWN Tobacco use date assessed: 07/05/23 Fall risk assessment: No Falls in past year Last assessed Fall Risk: 07/05/23 Dental Screening Dental Screen Date: 07/05/23 Did you have a dental visit in the last 12 months?: Yes Did you have a dental problem in the last 6 months where you did not have access to dental care?: No Was dental information given to patient?: Patient has dentist HPI HPI Comments History of Present Illness Details 68-year-old female past medical history significant for hypertension, hypothyroidism, schizophrenia, LIMA, obesity, parkinsonism. Patient Dr. mendiola presents today for emergency room follow-up for intermittent right upper quadrant pain x6 weeks labs in urine unremarkable. Abdominal ultrasound possible right renal lower pole caliectasis. Patient presents today with group art supervisor reveals she was previously seen in the past at [facility] for which abdominal ultrasound and abdominal CT scans were unremarkable. Patient continues to experience right upper quadrant intermittent abdominal pain and was advised to follow-up with a hyperion essbase developer. Patient denies any nausea, vomiting, diarrhea or constipation. Referral entered to gastroenterology. Patient has also been previously referred to OBGYN to follow-up for endometrial wall thickening. [facility] Medical History (Updated 06/24/23 @ 00:01 by Alonso Guzmán) Knee pain, left Age-related osteoporosis without current pathological fracture Urinary urgency COVID-19 virus infection Knee pain, bilateral Fatty liver Vitamin D deficiency History of tuberculosis Cataract, right eye B-cell lymphoma Mental and behavioral problem Obesity (BMI 30-39.9) Urinary incontinence Hypercholesterolemia Obstructive sleep apnea Schizophrenia Hypothyroidism Hypertension Surgical History History of cataract surgery Family History Father CVD (cardiovascular disease) Mother CVD (cardiovascular disease) Other Mental health disorder Social History Housing: Apartment Alcohol intake: never Patient Tobacco Use Status: Never used Tobacco e-Cigarette/Vaping Use: Never Used Second Hand Smoke Exposure: No service: No Current occupational status: disabled Cognitive needs: Yes Hearing needs: No Vision needs: Yes Questionnaire Thrive Questionnaire Date Thrive assessed: 12/13/22 DIETER-7 AMB Questionnaire DIETER-7 Date DIETER - 7 assessed: 12/13/22 Source: Developed by Drs. Luis Roman, Kymberly Choe, Biju Puente and colleagues, with an educational [place] from [employer]. Review of Systems Const Denies chills, Denies fatigue, Denies fever(s) and Denies poor appetite Eyes Denies no additional complaints ENT Reports Normal hearing present Card Denies chest pain, Denies syncope, Denies rapid heart rate and Denies dyspnea Resp Denies cough and Denies dyspnea GI Denies change in stool character, Denies constipation, Denies diarrhea, Denies nausea and Denies vomiting Denies urinary frequency, Denies dysuria and Denies urinary urgency Neuro Reports Normal hearing present, Denies confusion and Denies syncope Psych Denies confusion Endo Denies fatigue Physical exam (Primary Care) Vital Signs: Last Vital Signs Pulse 61 07/05/23 11:20 BP 128/70 07/05/23 11:20 Pulse Ox 98 07/05/23 11:20 Oxygen Delivery Method Room Air 07/05/23 11:20 BMI result Body Mass Index 34.7 Tobacco/Smoking Status: Tobacco use Status Tobacco use date assessed 07/05/23 07/05/23 11:30 Patient Tobacco Use Status Never used Tobacco 07/05/23 11:30 e-Cigarette/Vaping Use Never Used 07/05/23 11:30 Thrive Assessment: Date of Thrive Assessment Date Thrive assessed 12/13/22 07/05/23 11:30 Const General: No confusion Orientation/consciousness: No confusion HENMT Head: Yes normocephalic and Yes atraumatic Eyes Conjunctivae: conjunctivae normal Chest Chest palpation & inspection: normal inspection of the chest Resp Effort & Inspection: normal respiratory effort Auscultation: clear to auscultation bilaterally, no crackles, no rhonchi and no wheezes Cardio Rate: regular rate Rhythm: regular rhythm Heart sounds: S1 normal heart sound present and S2 normal heart sound present GI Inspection: Yes normal to inspection Palpation (GI): Soft to palpation, nontender and No hepatosplenomegaly present Auscultation: normoactive bowel sounds Neuro General: No confusion Cranial nerves: Yes Normal hearing present Extrem General: No edema Assessment and Plan Assessment & Plan (1) Right lower quadrant abdominal pain: Code(s): R10.31 - Right lower quadrant pain Plan: Referral entered to gastroenterology for persistent right upper quadrant pain. Can continue to take Tylenol as needed for pain. (2) Hypercholesterolemia: Code(s): E78.00 - Pure hypercholesterolemia, unspecified Plan: Continue on atorvastatin 20 mg at bedtime. Continue follow low-cholesterol diet (3) Hypothyroidism: Code(s): E03.9 - Hypothyroidism, unspecified Qualifiers: Hypothyroidism type: acquired Qualified Code(s): E03.9 - Hypothyroidism, unspecified Plan: Continue on levothyroxine (4) Hypertension: Code(s): I10 - Essential (primary) hypertension Qualifiers: Hypertension type: essential hypertension Qualified Code(s): I10 - Essential (primary) hypertension Plan: Continue on lisinopril 40 mg daily. Plan Keep scheduled follow-up with PCP or follow-up sooner if needed. Orders: Referrals Gastroenterology Referral R10.31 - Right lower quadrant pain Coding Level of Care Code Est Pt Level 4 (70030) Diagnoses Right lower quadrant abdominal pain R10.31 Hypercholesterolemia E78.00 Acquired hypothyroidism E03.9 Hypothyroidism type: acquired Essential hypertension I10 Hypertension type: essential hypertension
[2023-07-05 11:20] VITALS: BP 128/70; PULSE 61; O2SAT 98; BMI 34.7
== END 2023-07-05 12:07 | disposition home or self-care (01) ==
PROVIDERS: PCP Internal Medicine; Visit Provider Nurse Practitioner Family
DX: R10.31 Right lower quadrant pain (principal); E78.00 Pure hypercholesterolemia, unspecified; E03.9 Hypothyroidism, unspecified; I10 Essential (primary) hypertension
CPT/HCPCS: 99214

== ENCOUNTER 2023-07-07 09:43 | Outpatient (AMB) | payer MEDICARE, MEDICAID, SELFPAY ==
--- NOTE | 2023-07-07 09:53 | MHC.OFFVIS ---
Intake Intake Visit Reasons: 6m/PVR Intake Note: Patient is present for PVR Urology Med: Myrbetriq, Tolterodine Antibiotic Allergy: Penicillins Blood Thinner: None Pharmacy: [facility] PVR: 51 Allergies Penicillins [PENICILLINS] Allergy (Unknown, Verified 07/07/23 09:54) UNKNOWN Medication List - Last Reconciled 07/07/23 by Americo Everett MD acetaminophen ER (Tylenol Arthritis Pain) 650 mg PO Q8H 30 days ammonium lactate 12% 1 appl topical BID aripiprazole (Abilify) 10 mg PO DAILY atorvastatin 20 mg PO BEDTIME 30 days atorvastatin 10 mg PO DAILY benztropine 0.5 mg PO BID carboxymethylcellulose-glycern 0.5-0.9 % (Refresh Optive) 1 drp ophthalmic (eye) BID cholecalciferol (vitamin D3) 50 mcg PO DAILY clotrimazole 1% 1 appl topical BID 4 weeks [CPAP ] diclofenac sodium 1% (Voltaren Arthritis Pain) 4 grams topical BID PRN 30 days divalproex (Depakote) 500 mg PO QAM divalproex (Depakote) 750 mg (1.5 x 500 mg) PO QPM divalproex 250 mg PO QPM docusate sodium (Colace) 100 mg PO DAILY ketoconazole 2% topical levothyroxine 100 mcg PO QAM lisinopril 40 mg PO QAM miconazole nitrate 2% (Zeasorb AF) 1 appl topical BID mirabegron ER (Myrbetriq) 50 mg PO DAILY 90 days nebivolol (Bystolic) 10 mg PO DAILY nystatin 1 appl topical BID sulfacetamide sodium 10% (Bleph-10) 2 drps ophthalmic (eye) Q4H 7 days tobramycin-dexamethasone 0.3-0.1 % (TobraDex) 1 drp ophthalmic (eye) .QD tolterodine ER 4 mg PO DAILY 90 days trazodone 150 mg PO DAILY triamcinolone acetonide 0.5% 1 appl topical BID 7 days vit C,R-Fn-zkahr-lutein-zeaxan 250-90-40-1 mg (PreserVision AREDS-2) 1 tab PO .QD HPI HPI Comments History of Present Illness Details Shelby is a female. Cognitive impairment with parkinsonian features. She is a patient of Dr. Rosales. She is seen for the following urologic conditions - urinary urgency and frequency Six monthly review PVR 50 UA normal Combination medication No longer reporting daytime accidents Does not report urge frequency to caregivers Is not having nighttime issues Continue with combination therapy Myrbetriq 50 mg and tolterodine 4mg Continue Q 6 month PVR Urinary urgency and frequency Accompanied by caregiver Progressive cognitive issues Using Myrbetriq 50 mg daily, tolterodine 4 mg daily [facility] Medical History (Updated 07/07/23 @ 10:24 by Americo Everett MD) Knee pain, left Age-related osteoporosis without current pathological fracture Urinary urgency COVID-19 virus infection Knee pain, bilateral Fatty liver Vitamin D deficiency History of tuberculosis Cataract, right eye B-cell lymphoma Mental and behavioral problem Obesity (BMI 30-39.9) Urinary incontinence Hypercholesterolemia Obstructive sleep apnea Schizophrenia Hypothyroidism Hypertension Surgical History History of cataract surgery Family History Father CVD (cardiovascular disease) Mother CVD (cardiovascular disease) Other Mental health disorder Social History Housing: Apartment Alcohol intake: never Patient Tobacco Use Status: Never used Tobacco e-Cigarette/Vaping Use: Never Used Second Hand Smoke Exposure: No service: No Current occupational status: disabled Cognitive needs: Yes Hearing needs: No Vision needs: Yes Office Procedures Post Void Residual Post Residual Void Post Void Residual (PVR): 51 [id number] Void Residual by ultrasound Results AMB Urinalysis, Automated UA Leukoctes 0 Lamar/uL Last Edit by TIMBO Russell on 07/07/23 10:11 UA Nitrite Negative Last Edit by TIMBO Russell on 07/07/23 10:11 UA Urobilinogen 0.2 mg/dL Last Edit by TIMBO Russell on 07/07/23 10:11 UA Protein 0 mg/dL Last Edit by TIMBO Russell on 07/07/23 10:11 UA pH 6.0 Last Edit by TIMBO Russell on 07/07/23 10:11 UA Blood 0 Kenton/uL Last Edit by TIMBO Russell on 07/07/23 10:11 UA Specific [place] 1.020 Last Edit by Justine Carr, RMA on 07/07/23 10:11 UA Ketone Negative Last Edit by Justine Carr, RMA on 07/07/23 10:11 UA Bilirubin 0 mg/dL Last Edit by Justine Carr, RMA on 07/07/23 10:11 UA Glucose 0 mg/dL Last Edit by Justine Carr, RMA on 07/07/23 10:11 Results Reviewed Results Reviewed: Laboratory Last Values Urine pH (Auto) 6.0 07/07/23 09:54 Specific [place] (Auto) 1.020 07/07/23 09:54 Urine Protein (Auto) 0 mg/dL 07/07/23 09:54 Glucose (UA)(Auto) 0 mg/dL 07/07/23 09:54 Urine Ketones (Auto) Negative 07/07/23 09:54 Urine Blood (Auto) 0 [place]/uL 07/07/23 09:54 Urine Nitrite (Auto) Negative 07/07/23 09:54 Urine Bilirubin (Auto) 0 mg/dL 07/07/23 09:54 Urine Urobilinogen (Auto) 0.2 mg/dL 07/07/23 09:54 Leukocyte Esterase (Auto) 0 Lamar/uL 07/07/23 09:54 Assessment & Plan Assessment & Plan (1) Overactive bladder: Code(s): N32.81 - Overactive bladder (2) Urge incontinence: Code(s): N39.41 - Urge incontinence Plan Six month follow-up PVR Orders: Orders AMB Urinalysis Automated Today Z13.9 - Encounter for screening, unspecified AMB Post Void Residual by ultrasound Today N32.81 - Overactive bladder Medications: Refilled mirabegron ER (Myrbetriq) 50 mg PO DAILY 90 tabs 2RF 90 days N32.81 - Overactive bladder tolterodine ER 4 mg PO DAILY 90 caps 1RF 90 days N31.8 - Other neuromuscular dysfunction of bladder, N32.81 - Overactive bladder Patient Instructions: Imaging studies, laboratory and physical exam results were discussed and reviewed in detail. No major barriers to patient understanding were identified. An opportunity to ask questions regarding the treatment plan was provided. All questions were answered. The patient expressed understanding and agreement with the above treatment plan. The patient is aware they should contact our office by phone for worsening of their current condition or the appearance of new urologic symptoms. Compliance is encouraged with any medications and followup testing that is ordered. It is a privilege to participate in the urologic care of your patient. If you have any questions or concerns regarding treatment for the above conditions, or other urologic issues, please do not hesitate to contact me. The office telephone contact is [phone]. This note is constructed using voice recognition software. While every effort has been made to ensure accuracy aquatic ecologist errors may have been included. Yours sincerely, Dr Americo Everett MD, [facility] - Urology Providers of Expert, Compassionate Care for the Genitourinary System Coding Level of Care Code Est Pt Level 3 (64029) Diagnoses Overactive bladder N32.81 Urge incontinence N39.41 CPT Codes Post Residual Void - PVR CPT Code: 54564-Rffr Void Residual by ultrasound ([id number])
== END 2023-07-07 10:23 | disposition home or self-care (01) ==
PROVIDERS: PCP Internal Medicine; Visit Provider Urology
DX: N32.81 Overactive bladder (principal); N39.41 Urge incontinence; Z13.9 Encounter for screening, unspecified
CPT/HCPCS: 99213

== ENCOUNTER → 2023-07-07 09:43 | Outpatient (BNVA) | payer MEDICARE, MEDICAID, SELFPAY | PROVIDERS: Visit Provider Urology | DX: N32.81 Overactive bladder (principal); N39.41 Urge incontinence; Z79.899 Other long term (current) drug therapy | CPT/HCPCS: 51798; 81003; 99212 ==

== ENCOUNTER 2023-07-25 08:33 | Outpatient (AMB) | payer MEDICARE, MEDICAID, SELFPAY ==
--- NOTE | 2023-07-25 08:40 | MHC.OFFVIS ---
Intake Vital Signs 07/25/23 08:42 Height 5 ft 1 in Weight 180 lb BMI 34.0 BP 137/65 Blood Pressure Location Lt brachial Position Sitting Pulse 73 Intake Visit Reasons: Right lower quadrant pain Intake Note: Patient new consult for RLQ pain. Patient cc: RLQ pain on and off, some constipation. General Manager In Training Required: No Accompanied by: Employee Allergies Penicillins [PENICILLINS] Allergy (Unknown, Verified 07/25/23 08:39) UNKNOWN HPI Right lower quadrant pain HPI Details 68 yo Persian speaking female with history of Parkinson's disease, schizophrenia, HTN, hypothyroidism, constipation is here today for initial consultation. Patient was seen in the ER for right sided abdominal pain. Patient reports that the pain is in the right lower quadrant. Patient states that the pain is not related to food. History obtained with the assistance of skilled nursing staff who has been caring for her for the last 14 years. Patient has been complaining of intermittent right lower quadrant abdominal pain that comes and goes. Patient's immigration case worker noticed that when she has the pain she is walking hunched over towards the right side. Pain is not associated with meals. Patient will have the pain randomly. Patient went to [facility] couple of weeks before seen in the ER where she had lab work done, and ultrasound as well as a CT scan that were all unremarkable. Patient was told to take Tylenol and Motrin with intermittent improvement in the pain. Patient was told that she had thickened endometrium and was referred to OBGYN and waiting for appointment still. She has not had any urinary symptoms, nausea, vomiting, diarrhea. She is moving her bowels normally, however she does report that she does not feel like she empties her bowels completely. Patient denies any injury or falls. Patient denies any presyncope, syncope, chest pressure, chest pain or shortness of breath. [facility] Medical History (Updated 07/25/23 @ 08:49 by Roseann Gordon, [facility]) Knee pain, left Age-related osteoporosis without current pathological fracture Urinary urgency COVID-19 virus infection Knee pain, bilateral Fatty liver Vitamin D deficiency History of tuberculosis Cataract, right eye B-cell lymphoma Mental and behavioral problem Obesity (BMI 30-39.9) Urinary incontinence Hypercholesterolemia Obstructive sleep apnea Schizophrenia Hypothyroidism Hypertension Surgical History History of cataract surgery Family History Father CVD (cardiovascular disease) Mother CVD (cardiovascular disease) Other Mental health disorder Social History Housing: Apartment Alcohol intake: never Patient Tobacco Use Status: Never used Tobacco e-Cigarette/Vaping Use: Never Used Second Hand Smoke Exposure: No service: No Current occupational status: disabled Cognitive needs: Yes Hearing needs: No Vision needs: Yes Review of Systems Const Denies weight gain and Denies weight loss ENT Reports no additional complaints, Denies dysphagia and Denies odynophagia Card Reports no additional complaints Resp Reports no additional complaints GI Reports abdominal pain, Denies belching, Denies melena, Denies bloating, Denies change in bowel habits, Reports constipation (Occasional), Denies dysphagia, Denies excessive flatus, Denies dyspepsia, Denies heartburn, Denies diarrhea, Denies loose stools, Denies nausea, Denies odynophagia and Denies vomiting Reports no additional complaints Musc Reports no additional complaints Neuro Reports no additional complaints Psych Reports no additional complaints Endo Reports no additional complaints Physical Exam Vital Signs: Last Vital Signs Pulse 73 07/25/23 08:42 BP 137/65 07/25/23 08:42 BMI result Body Mass Index 34.0 Const General: healthy appearing, no acute distress and well developed Nutritional Appearance: obese Orientation/consciousness: oriented to person and oriented to place HEENT Head: Yes normal to inspection, Yes normocephalic and Yes atraumatic Face and sinus: Yes normal facial exam Mouth: Normal oral and palatal mucosa present Throat: Yes posterior oropharynx normal, Yes tonsils normal and Yes uvula midline Eyes General: appearance normal, both eyes and all related structures Neck Neck: Yes normal visual inspection, Yes full ROM and Yes trachea midline Thyroid: Thyroid normal Resp Effort & Inspection: normal respiratory effort, able to speak in complete sentences, no tracheal deviation and symmetric chest movement Auscultation: clear to auscultation bilaterally Cardio Rate: regular rate Heart sounds: S1 normal heart sound present and S2 normal heart sound present GI Inspection: Yes normal to inspection, No distended and Yes obesity Palpation (GI): Soft to palpation, not firm, Tenderness to palpation present (GI) (RLQ) and No hepatosplenomegaly present Auscultation: normal bowel sounds General: Yes no CVA tenderness Back/Spine/Pelvis Back: no CVA tenderness Skin General skin exam: elasticity normal, turgor normal and dry skin Neuro General: oriented to person and oriented to place Psych Appearance: grossly normal Mental Status: mental status grossly normal Speech and movement: Normal speech and movement present Results Reviewed Results Reviewed: ABDOMINAL ULTRASOUND 06/23/2023 FINDINGS: PANCREAS: Limited visualization. LIVER: The liver is normal in size. The liver contour is normal. Parenchymal echogenicity is normal. No focal hepatic lesion. There is no intrahepatic biliary duct dilatation seen. GALLBLADDER: The gallbladder is physiologically distended without evidence of stones, sludge, polyps, wall thickening or pericholecystic fluid. COMMON BILE DUCT: Normal in caliber measuring 0.8 cm in diameter. RIGHT KIDNEY: Possible caliectasis in the lower pole. No renal calculi or focal parenchymal lesions. The kidney measures 11.4 cm in maximum dimension. FREE FLUID: None. US/US abdomen limited IMPRESSION: Possible right renal lower pole caliectasis. Assessment & Plan Assessment & Plan (1) Right lower quadrant abdominal pain: Code(s): R10.31 - Right lower quadrant pain (2) Constipation: Code(s): K59.00 - Constipation, unspecified Qualifiers: Constipation type: slow transit constipation Qualified Code(s): K59.01 - Slow transit constipation (3) Ventral hernia: Code(s): K43.9 - Ventral hernia without obstruction or gangrene Qualifiers: Obstruction and gangrene presence: without obstruction or gangrene Qualified Code(s): K43.9 - Ventral hernia without obstruction or gangrene Plan Patient will start taking Senokot 2 tablets every evening. Patient was encouraged to increase fluid intake and activity to promote better bowel motility. Patient does have mild tenderness to right lower quadrant during exam. It feels more like within the abdominal wall. Will send patient for limited ultrasound to rule out ventral hernia. CT scan report reviewed and did not mention any hernias. Patient might need to be referred to general surgery if ultrasound will show hernia. I will see patient in 4 weeks, sooner on as needed basis. Both patient and care worker are agreeable to this plan and verbalize understanding of instructions. They were given the opportunity to ask questions and all questions answered. Thank you for allowing me to participate in her care Orders: Orders Vitamin D 25-OH (D2 and D3) Today E55.9 - Vitamin D deficiency, unspecified US abdomen limited Today K43.9 - Ventral hernia without obstruction or gangrene, R10.31 - Right lower quadrant pain TSH reflex Free T4 Today K59.00 - Constipation, unspecified Vitamin B12 and Folate Today R19.7 - Diarrhea, unspecified Medications: New sennosides (Natural Senna Laxative) 17.2 mg (2 x 8.6 mg) PO BEDTIME 60 tabs 3RF constipation K59.00 - Constipation, unspecified Coding Level of Care Code New Pt Level 4 (25820) Diagnoses Right lower quadrant abdominal pain R10.31 Slow transit constipation K59.01 Constipation type: slow transit constipation Ventral hernia without obstruction or gangrene K43.9 Obstruction and gangrene presence: without obstruction or gangrene Time Spent (min) 45 Comment 30 minutes spent with patient and additional 15 minutes spent reviewing her records
[2023-07-25 08:42] VITALS: BP 137/65; PULSE 73; BMI 34.0
== END 2023-07-25 09:29 | disposition home or self-care (01) ==
PROVIDERS: PCP Internal Medicine; Visit Provider Nurse Practitioner Family
DX: R10.31 Right lower quadrant pain (principal); K59.01 Slow transit constipation; K43.9 Ventral hernia without obstruction or gangrene
CPT/HCPCS: 99204

== ENCOUNTER → 2023-07-25 08:33 | Outpatient (BNVA) | payer MEDICARE, MEDICAID, SELFPAY | PROVIDERS: PCP Internal Medicine; Visit Provider Nurse Practitioner Family ==

== ENCOUNTER 2023-07-27 12:58 | Outpatient (AMB) | payer MEDICARE, MEDICAID, SELFPAY ==
[2023-07-27 13:01] VITALS: BP 110/62; PULSE 73; O2SAT 97; BMI 34.6
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
== END 2023-07-27 13:38 | disposition home or self-care (01) ==
PROVIDERS: Visit Provider Internal Medicine
DX: N39.41 Urge incontinence (principal); F20.9 Schizophrenia, unspecified; E66.9 Obesity, unspecified; Z68.34 Body mass index [BMI] 34.0-34.9, adult; K42.9 Umbilical hernia without obstruction or gangrene; E78.00 Pure hypercholesterolemia, unspecified; E03.9 Hypothyroidism, unspecified; B35.1 Tinea unguium; M51.36 Other intervertebral disc degeneration, lumbar region
CPT/HCPCS: 99214

== ENCOUNTER 2023-07-29 15:13 | Outpatient (REF) | payer MEDICARE, MEDICAID, SELFPAY | END 2023-07-29 15:14 | disposition home or self-care (01) | LOC: HO.US 15:13 | PROVIDERS: PCP Internal Medicine; Visit Provider Nurse Practitioner Family | DX: R10.31 Right lower quadrant pain (principal); K43.9 Ventral hernia without obstruction or gangrene | CPT/HCPCS: 76857 ==

== ENCOUNTER 2023-08-24 08:01 | Outpatient (AMB) | payer MEDICARE, MEDICAID, SELFPAY ==
--- NOTE | 2023-08-24 08:08 | A.OFFVIS_ITS ---
Intake Vital Signs 08/24/23 08:09 Height 5 ft 1 in Weight 187 lb 13.341 oz BMI 35.5 BP 134/61 Blood Pressure Location Rt brachial Position Sitting Pulse 75 Intake Visit Reasons: 4 week follow up Intake Note: Patient presents to in office visit today in follow up of labs and constipation. CC: Patient with resides at [email or web address] and is here with a manger of the facility who states simba the patient has not complaint of pain any more. The patient reports she is having normal BMs. Tool Operator Required: No Accompanied by: Employee Allergies Penicillins [PENICILLINS] Allergy (Unknown, Verified 07/27/23 13:02) UNKNOWN HPI 4 week follow up HPI Details LAST VISIT Right lower quadrant abdominal pain Constipation Ventral hernia Plan Patient will start taking Senokot 2 tablets every evening. Patient was encouraged to increase fluid intake and activity to promote better bowel motility. Patient does have mild tenderness to right lower quadrant during exam. It feels more like within the abdominal wall. Will send patient for limited ultrasound to rule out ventral hernia. CT scan report reviewed and did not mention any hernias. Patient might need to be referred to general surgery if ultrasound will show hernia. I will see patient in 4 weeks, sooner on as needed basis. Both patient and care worker are agreeable to this plan and verbalize understanding of instructions. They were given the opportunity to ask questions and all questions answered. ? Thank you for allowing me to participate in her care Orders Orders Vitamin D 25-OH (D2 and D3) Today E55.9 US abdomen limited Today K43.9, R10.31 TSH reflex Free T4 Today K59.00 Vitamin B12 and Folate Today R19.7 Medications New sennosides (Natural Senna Laxative) 17.2 mg (2 x 8.6 mg) PO BEDTIME 60 tabs 3RF constipation K59.00 TODAY'S VISIT Patient is here today for follow-up. Patient is accompanied by her guide dog trainer. Patient reports that she has been feeling better. Able to move her bowels every day. Patient denies any abdominal pain or discomfort. Ultrasound discussed with patient. Patient had no hernia that was seen on the exam. Patient's rehabilitation caseworker was asked get blood work done. They will go get that done today. Patient reports that last week she had nausea and 1 episode of vomiting. Patient denies any dyspepsia, dysphagia or odynophagia. Denies any melena, hematochezia, unintentional weight loss or ribbon like stools. Patient had colonoscopy in November of 2019. Patient is due to repeat colonoscopy in November of 2024. Patient had tubular adenoma. [facility] Medical History Knee pain, left Age-related osteoporosis without current pathological fracture Urinary urgency COVID-19 virus infection Knee pain, bilateral Fatty liver Vitamin D deficiency History of tuberculosis Cataract, right eye B-cell lymphoma Mental and behavioral problem Obesity (BMI 30-39.9) Urinary incontinence Hypercholesterolemia Obstructive sleep apnea Schizophrenia Hypothyroidism Hypertension Surgical History History of cataract surgery Family History Father CVD (cardiovascular disease) Mother CVD (cardiovascular disease) Other Mental health disorder Social History Housing: Apartment Alcohol intake: never Patient Tobacco Use Status: Never used Tobacco e-Cigarette/Vaping Use: Never Used Second Hand Smoke Exposure: No service: No Current occupational status: disabled Cognitive needs: Yes Hearing needs: No Vision needs: Yes Review of Systems Const Denies weight gain and Denies weight loss ENT Reports no additional complaints, Denies dysphagia and Denies odynophagia Card Reports no additional complaints Resp Reports no additional complaints GI Denies abdominal pain, Denies belching, Denies melena, Denies bloating, Denies change in bowel habits, Denies dysphagia, Denies excessive flatus, Denies dyspepsia, Denies heartburn, Denies diarrhea, Denies loose stools, Denies nausea, Denies odynophagia and Denies vomiting Musc Reports no additional complaints Neuro Reports no additional complaints Psych Reports no additional complaints Endo Reports no additional complaints Physical Exam Vital Signs: Last Vital Signs Pulse 75 08/24/23 08:09 BP 134/61 08/24/23 08:09 BMI result Body Mass Index 35.5 Const General: healthy appearing, no acute distress and well developed Nutritional Appearance: obese Orientation/consciousness: patient oriented x3 HEENT Head: Yes normal to inspection, Yes normocephalic and Yes atraumatic Face and sinus: Yes normal facial exam Mouth: Normal oral and palatal mucosa present Throat: Yes posterior oropharynx normal, Yes tonsils normal and Yes uvula midline Eyes General: appearance normal, both eyes and all related structures Neck Neck: Yes normal visual inspection, Yes full ROM and Yes trachea midline Thyroid: Thyroid normal Resp Effort & Inspection: normal respiratory effort, able to speak in complete sentences, no tracheal deviation and symmetric chest movement Auscultation: clear to auscultation bilaterally Cardio Rate: regular rate Heart sounds: S1 normal heart sound present and S2 normal heart sound present GI Inspection: Yes normal to inspection and No distended Palpation (GI): Soft to palpation, not firm, nontender and No hepatosplenomegaly present Auscultation: normal bowel sounds General: Yes no CVA tenderness Back/Spine/Pelvis Back: no CVA tenderness Skin General skin exam: elasticity normal, turgor normal and dry skin Neuro General: patient oriented x3 Psych Appearance: grossly normal Mental Status: mental status grossly normal Assessment & Plan Assessment & Plan (1) Right lower quadrant abdominal pain: Code(s): R10.31 - Right lower quadrant pain (2) Constipation: Code(s): K59.00 - Constipation, unspecified Qualifiers: Constipation type: slow transit constipation Qualified Code(s): K59.01 - Slow transit constipation Plan Patient can continue Senokot. Patient was also encourage increase fluid intake and activity to promote better bowel motility. Patient was also encouraged to eat small portions and more often. If patient will continue to have nausea and epigastric discomfort we will start her on PPI or H2 joe. I will see patient in 5 weeks, sooner on as needed basis. Patient is agreeable to this plan and verbalizes understanding of instructions. She was given the opportunity to ask questions and all questions answered. Colonoscopy will be due in November of 2024 Thank you for allowing me to participate in her care Medications: Refilled sennosides (Natural Senna Laxative) 17.2 mg (2 x 8.6 mg) PO BEDTIME 180 tabs 3RF constipation K59.00 - Constipation, unspecified Coding Level of Care Code Est Pt Level 3 (17222) Diagnoses Right lower quadrant abdominal pain R10.31 Slow transit constipation K59.01 Constipation type: slow transit constipation Time Spent (min) 25 Comment 15 minutes spent with patient and additional 10 minutes spent reviewing her records
[2023-08-24 08:09] VITALS: BP 134/61; PULSE 75; BMI 35.5
== END 2023-08-24 08:37 | disposition home or self-care (01) ==
PROVIDERS: PCP Internal Medicine; Visit Provider Nurse Practitioner Family
DX: R10.31 Right lower quadrant pain (principal); K59.01 Slow transit constipation
CPT/HCPCS: 99213

== ENCOUNTER → 2023-08-24 08:01 | Outpatient (BNVA) | payer MEDICARE, MEDICAID, SELFPAY | PROVIDERS: PCP Internal Medicine; Visit Provider Nurse Practitioner Family | DX: R10.31 Right lower quadrant pain (principal); K59.01 Slow transit constipation; Z79.899 Other long term (current) drug therapy | CPT/HCPCS: 99212 ==

== ENCOUNTER 2023-09-09 08:30 | Outpatient (REF) | payer MEDICARE, MEDICAID, SELFPAY ==
[2023-09-09 09:15] LABS: MANUAL DIFF FLAG NO
[2023-09-09 10:23] LABS: Basophils Absolute Auto 0.1 X10*3/uL (0.0-0.2); Eosinophils Absolute Auto 0.1 X10*3/uL (0.0-0.4); Eosinophils Percent Auto 2.1 % (0-4); Hematocrit 41.6 % (37.0-47.0); Hemoglobin 13.8 g/dl (12.0-16.0); Imm Gran Abs Auto 0.02 X10*3/uL (0.00-0.03); Imm Gran Pct Auto 0.4 % (0.0-0.4); Lymphocytes Absolute Auto 1.8 X10*3/uL (1.2-4.9); Lymphocytes Percent Auto 37.2 % (20-40); Mean Corpuscular HGB Conc 33.2 g/dl (31.0-35.0); Mean Corpuscular Hemoglobin 31.9 pg (27.0-33.0); Mean Corpuscular Volume 96.3 fL (80.0-98.0); Mean Platelet Volume 10.9 fL (9.4-12.3); Monocytes Absolute Auto 0.7 X10*3/uL (0.1-1.2); Neutrophils Absolute Auto 2.2 x10*3/uL (2.0-8.3); Neutrophils Percent Auto 45.3 % (45-73); Platelet Count 215 X10*3/uL (160-400); Red Blood Count 4.32 X10*6/uL (4.20-5.50); Red Cell Distribution Width 12.9 % (11.0-16.0); White Blood Count 4.9 X10*3/uL (4.8-10.8)
[2023-09-09 10:52] LABS: Valproate 62.2 mcg/mL (50.0-100.0)
[2023-09-09 10:58] LABS: Alanine Aminotransferase 24 U/L (0-31); Alanine Aminotransferase 26 U/L (0-31); Albumin Level 4.1 g/dL (3.5-5.0); Alkaline Phosphatase 51 U/L (39-117); Alkaline Phosphatase 53 U/L (39-117); Anion Gap 13 (12-20); Aspartate Amino Transferase 20 U/L (5-31); Aspartate Amino Transferase 22 U/L (5-31); Bilirubin Direct 0.1 mg/dL (0.0-0.5); Bilirubin Total 0.4 mg/dL (0.0-1.0); Blood Urea Nitrogen 15 mg/dL (9-16); Calcium 9.4 mg/dL (8.4-10.2); Carbon Dioxide 26 mmol/L (22-29); Chloride 107 mmol/L (96-108); Cholesterol 187 mg/dL (<200); Estimated Glomerular Filt Rate > 60; Glucose Random 77 mg/dL (60-115); HDL Cholesterol 48 mg/dL (>40); LDL Cholesterol Calculated 117 mg/dL (<100); Potassium 4.9 mmol/L (3.3-5.1); Sodium 141 mmol/L (135-145); Total Protein 7.1 g/dL (6.5-8.0); Total Protein 7.4 g/dL (6.5-8.0); Triglycerides 114 mg/dL (<150)
[2023-09-09 11:13] LABS: Free T4 (Free Thyroxine) 1.04 ng/dL (0.71-1.85); Vitamin D 25-OH Total 47.5 ng/mL (>30)
[2023-09-09 11:22] LABS: Folate 10.7 ng/mL (> or = 4.0); Vitamin B12 706 pg/mL (200-900); Vitamin B12 783 pg/mL (200-900)
[2023-09-09 11:24] LABS: TSH reflex Free T4 2.27 uIU/mL (0.32-4.0); Thyroid Stimulating Hormone 2.27 uIU/mL (0.32-4.0)
[2023-09-14 10:38] LABS: Vitamin D 25-OH, D2 <4 ng/mL; Vitamin D 25-OH, D3 39 ng/mL; Vitamin D 25-OH, Total 39 ng/mL (30-100)
== END 2023-09-09 08:31 | disposition home or self-care (01) ==
LOC: HO.LAB 08:30
PROVIDERS: General Practice; Absent Provider Nurse Practitioner Family; PCP Internal Medicine; Visit Provider Internal Medicine
DX: E55.9 Vitamin D deficiency, unspecified (principal); K59.00 Constipation, unspecified; R19.7 Diarrhea, unspecified; E78.00 Pure hypercholesterolemia, unspecified; E03.9 Hypothyroidism, unspecified; F25.9 Schizoaffective disorder, unspecified; Z79.899 Other long term (current) drug therapy
CPT/HCPCS: 36415; 80053; 80061; 80076; 80164; 82248; 82306; 82607; 82746; 84439; 84443; 85025

== ENCOUNTER 2023-09-28 08:06 | Outpatient (AMB) | payer MEDICARE, MEDICAID, SELFPAY ==
--- NOTE | 2023-09-28 08:14 | MHC.OFFVIS ---
Intake Vital Signs 09/28/23 08:16 Height 5 ft 1 in Weight 184 lb 4.903 oz BMI 34.8 BP 110/66 Blood Pressure Location Lt brachial Position Sitting Pulse 73 Intake Visit Reasons: 5 week follow up discuss colonoscopy Intake Note: discuss colonoscopy Television Cameraman Required: No Allergies Penicillins [PENICILLINS] Allergy (Unknown, Verified 09/28/23 08:17) UNKNOWN HPI 5 week follow up discuss colonoscopy HPI Details LAST VISIT Right lower quadrant abdominal pain Constipation Plan Patient can continue Senokot. Patient was also encourage increase fluid intake and activity to promote better bowel motility. Patient was also encouraged to eat small portions and more often. If patient will continue to have nausea and epigastric discomfort we will start her on PPI or H2 joe. I will see patient in 5 weeks, sooner on as needed basis. Patient is agreeable to this plan and verbalizes understanding of instructions. She was given the opportunity to ask questions and all questions answered. ? ? Thank you for allowing me to participate in her care Medications Refilled sennosides (Natural Senna Laxative) 17.2 mg (2 x 8.6 mg) PO BEDTIME 180 tabs 3RF constipation K59.00 TODAY'S VISIT: Patient reports that she has been moving her bowels better. Denies any abdominal pain or discomfort at this moment. Taking Senokot every day. Colonoscopy was done in November of 2019. Biopsy showed 1 tubular adenoma and vegetable material identified in the ascending colon. Likely patient had suboptimal prep and should have colorectal screening earlier than 5 years. Patient is not on any anticoagulation medication at this moment. History of sleep apnea on CPAP. History of to build skills is in the past in treated. No other infectious diseases documented. No family history of colorectal cancer. Patient denies any respiratory or cardiac symptoms. [facility] Medical History Knee pain, left Age-related osteoporosis without current pathological fracture Urinary urgency COVID-19 virus infection Knee pain, bilateral Fatty liver Vitamin D deficiency History of tuberculosis Cataract, right eye B-cell lymphoma Mental and behavioral problem Obesity (BMI 30-39.9) Urinary incontinence Hypercholesterolemia Obstructive sleep apnea Schizophrenia Hypothyroidism Hypertension Surgical History History of cataract surgery Family History Father CVD (cardiovascular disease) Mother CVD (cardiovascular disease) Other Mental health disorder Social History Housing: Apartment Alcohol intake: never Patient Tobacco Use Status: Never used Tobacco e-Cigarette/Vaping Use: Never Used Second Hand Smoke Exposure: No service: No Current occupational status: disabled Cognitive needs: Yes Hearing needs: No Vision needs: Yes Review of Systems Const Denies weight gain and Denies weight loss ENT Reports no additional complaints, Denies dysphagia and Denies odynophagia Card Reports no additional complaints Resp Reports no additional complaints GI Denies abdominal pain, Denies belching, Denies melena, Denies bloating, Denies change in bowel habits, Denies dysphagia, Denies excessive flatus, Denies dyspepsia, Denies heartburn, Denies diarrhea, Denies loose stools, Denies nausea, Denies odynophagia and Denies vomiting Musc Reports no additional complaints Neuro Reports no additional complaints Psych Reports no additional complaints Endo Reports no additional complaints Physical Exam Vital Signs: Last Vital Signs Pulse 73 09/28/23 08:16 BP 110/66 09/28/23 08:16 BMI result Body Mass Index 34.8 Const General: healthy appearing, no acute distress and well developed Nutritional Appearance: obese Orientation/consciousness: patient oriented x3 HEENT Head: Yes normal to inspection, Yes normocephalic and Yes atraumatic Face and sinus: Yes normal facial exam Mouth: Normal oral and palatal mucosa present Throat: Yes posterior oropharynx normal, Yes tonsils normal and Yes uvula midline Eyes General: appearance normal, both eyes and all related structures Neck Neck: Yes normal visual inspection, Yes full ROM and Yes trachea midline Thyroid: Thyroid normal Resp Effort & Inspection: normal respiratory effort, able to speak in complete sentences, no tracheal deviation and symmetric chest movement Auscultation: clear to auscultation bilaterally Cardio Rate: regular rate GI Inspection: Yes normal to inspection and No distended Palpation (GI): Soft to palpation, not firm, nontender and No hepatosplenomegaly present Auscultation: normal bowel sounds General: Yes no CVA tenderness Back/Spine/Pelvis Back: no CVA tenderness Skin General skin exam: elasticity normal, turgor normal and dry skin Neuro General: patient oriented x3 Psych Appearance: grossly normal Affect: normal affect Assessment & Plan Assessment & Plan (1) Right lower quadrant abdominal pain: Code(s): R10.31 - Right lower quadrant pain (2) Constipation: Code(s): K59.00 - Constipation, unspecified Qualifiers: Constipation type: slow transit constipation Qualified Code(s): K59.01 - Slow transit constipation (3) Screen for colon cancer: Code(s): Z12.11 - Encounter for screening for malignant neoplasm of colon Plan Patient had colonoscopy in November of 2019 1 tubular adenoma found, most likely patient had suboptimal prep then as biopsy showed vegetable material found in patient's ascending colon. Will send patient for colonoscopy now. Patient is moving her bowels better now that she is taking Senokot daily. What to expect before during and after procedure discussed with patient's SLITTER HELPER. Patient is no longer on aspirin. History of LIMA, using CPAP every night. History of tuberculosis in the past, treated. No other infectious diseases reported. Patient denies any cardiac or respiratory symptoms. No issues with anesthesia in the past. Discussed with patient's SLITTER HELPER the importance of good bowel prep. I will see her after the procedure, sooner on as needed basis. Medications: New bisacodyl (Dulcolax (bisacodyl)) take 4 tabs at noon the day before your colonoscopy 20 mg (4 x 5 mg) PO ONCE 1 day 4 tabs 0RF Z12.11 - Encounter for screening for malignant neoplasm of colon polyethylene glycol 3350 (Miralax) As directed by gastroenterology department at [facility] 238 grams PO ONCE 238 grams 0RF Z12.11 - Encounter for screening for malignant neoplasm of colon Coding Level of Care Code Est Pt Level 3 (95510) Diagnoses Right lower quadrant abdominal pain R10.31 Slow transit constipation K59.01 Constipation type: slow transit constipation Screen for colon cancer Z12.11 Time Spent (min) 30 Comment 20 minutes spent with patient and additional 10 minutes spent reviewing her records
[2023-09-28 08:16] VITALS: BP 110/66; PULSE 73; BMI 34.8
== END 2023-09-28 09:03 | disposition home or self-care (01) ==
PROVIDERS: PCP Internal Medicine; Visit Provider Nurse Practitioner Family
DX: R10.31 Right lower quadrant pain (principal); K59.01 Slow transit constipation; Z12.11 Encounter for screening for malignant neoplasm of colon
CPT/HCPCS: 99213

== ENCOUNTER → 2023-09-28 08:06 | Outpatient (BNVA) | payer MEDICARE, MEDICAID, SELFPAY | PROVIDERS: PCP Internal Medicine; Visit Provider Nurse Practitioner Family | DX: Z12.11 Encounter for screening for malignant neoplasm of colon (principal); K59.01 Slow transit constipation; R10.31 Right lower quadrant pain | CPT/HCPCS: 99212 ==

== ENCOUNTER 2023-10-21 07:00 | Outpatient (RCR) | payer MEDICARE, MEDICAID, SELFPAY ==
--- NOTE | 2023-09-12 08:58 | MHC.PT.EP ---
[facility] [place] [facility] [place] [facility] [place] [facility] [address] Iris Dietrich [address] [phone] F: [phone] F: [phone] F: [phone] F: [phone] Physical Therapy Plan of Care Date of Evaluation: 09/12/23 Date of Surgery: Diagnosis: lumbar degenerative disc disease Assessment: Patient is a 68 year old R handed female who presents with s/s consistent with pain. 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 Patient past medical history includes HTN And schizophrenia. Current impairments include pain, posture, ROM, strength, activity tolerance and functional mobility. Functional limitations include decreased ability to maintain positions comfortably, sleep, watch TV, walk and stand for > 5 minutes. Patient is motivated with good rehab potential. Skilled PT will address impairments and functional limitations in order to achieve goals. Frequency and Duration: The patient will be seen 2x/week for 5 weeks Short Term Goals: I with HEP - 2 weeks AROM rotation 75% and pain free - 3 weeks TTP absent - 3 weeks Lead Cook Goals: Oswestry 10% or better - 5 weeks Able to stand > 10 minutes, sit > 30 minutes without increased pain - 5 weks hip strenght 4/5 grossly - 5 weeks Pain with ADLs 2/10 max - 5 weeks Treatment Plan: Modalities to reduce pain, spasms and effusion. Manual therapy to restore motion and function. Therapeutic exercise to improve strength and flexibility. Neuromuscular re-education for posture and balance. Therapeutic activities to return to functional activities of daily living. Electronically signed by: Glen Medrano, PT Please sign and return to therapist. Thank you for your referral.
--- NOTE | 2023-11-08 07:51 | MHC.PT.DC ---
[facility] [place] [facility] [place] Office [place] Office [address] Iris Dietrich [address] [phone] F: [phone] F: [phone] F: [phone] F: [phone] Physical Therapy Discharge Report Diagnosis: lumbar degenerative disc disease Date of Surgery: Date of Evaluation: 09/12/23 Date of Discharge: 10/25/23 Treatments to Date: 9 Cancellations to Date: No Shows to Date: Discharge Status: Achieved Goals Improved Function Independent with HEP Discharge Summary: 10/21/23: pt with no pain for 2-3 weeks. no s/s. we updated HEP. Oswestry is 0%. We will d/c to HEP at this time. 10/19/23: pt has been progressing very nicely throughout. symptom free. we will issue HEP and d/c to HEP NV. 10/14/23: pt on pace to d/c to HEP symptom free in 2 visits. progressing with independence. 10/12/23: pt progressing well with skilled PT. no adverse reactions. responding well to current program. 10/05/23: pt has been progressing very well overall with skilled PT. we will continue 2 more weeks then like taper to HEP. 09/28/23: pt progressing well still. no pain with program. improved compliance with HEP. we will continue to progress as tolerated. 09/26/23: pt progressing well with skilled PT. no adverse reactions. we were able to progress with good response, requires significant cues but gives max effort. 09/19/23: pt notes being unable to be compliant with HEP but PHARMACEUTICAL SCIENTIST and other staff will work on it. we did add stretching and ball squeeze today. progress as tolerated NV. Patient is a 68 year old R handed female who presents with s/s consistent with pain. She does not work but does have a PHARMACEUTICAL SCIENTIST to help with daily activities and she attends a day program. Patient past medical history includes HTN And schizophrenia. Current impairments include pain, posture, ROM, strength, activity tolerance and functional mobility. Functional limitations include decreased ability to maintain positions comfortably, sleep, watch TV, walk and stand for > 5 minutes. Patient is motivated with good rehab potential. Skilled PT will address impairments and functional limitations in order to achieve goals. Electronically signed by: Glen Medrano, PT Please sign and return to therapist. Thank you for your referral.
== END 2023-11-08 07:52 | disposition home or self-care (01) ==
LOC: HO.PTCHIC 07:00
PROVIDERS: PCP Internal Medicine; Visit Provider Internal Medicine
DX: M51.36 Other intervertebral disc degeneration, lumbar region (principal)
CPT/HCPCS: 97110; 97163

== ENCOUNTER 2023-11-17 15:45 | Outpatient (AMB) | payer MEDICARE, MEDICAID, SELFPAY ==
[2023-11-17 16:05] VITALS: BP 130/78; PULSE 70; O2SAT 98; BMI 34.8
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
== END 2023-11-17 16:41 | disposition home or self-care (01) ==
PROVIDERS: PCP Internal Medicine; Visit Provider Internal Medicine
DX: I10 Essential (primary) hypertension (principal); F20.9 Schizophrenia, unspecified; E66.9 Obesity, unspecified; Z68.34 Body mass index [BMI] 34.0-34.9, adult; E03.9 Hypothyroidism, unspecified; E78.00 Pure hypercholesterolemia, unspecified; G47.33 Obstructive sleep apnea (adult) (pediatric); Z12.11 Encounter for screening for malignant neoplasm of colon; L25.9 Unspecified contact dermatitis, unspecified cause; K59.01 Slow transit constipation
CPT/HCPCS: 99214

== ENCOUNTER 2023-12-05 13:59 | Outpatient (AMB) | payer MEDICARE, MEDICAID, SELFPAY ==
--- NOTE | 2023-12-05 14:42 | MHC.OFFWIV ---
Intake Vital Signs 12/05/23 14:43 Height 5 ft 1 in Weight 184 lb BMI 34.8 BP 112/80 Blood Pressure Location Lt brachial Position Sitting Pulse 69 Pulse Source Pulse Oximeter Temp 97.8 F Temp Source Temporal Artery Scan Pulse Oximetry (%) 96 Oxygen Delivery Method Room Air Intake Visit Reasons: EST/right side foot pain (lobby) Intake Note: pt is her today rt side foot pain started 2 months ago Patient Tobacco Use Status: Never used Tobacco Allergies Penicillins [PENICILLINS] Allergy (Unknown, Verified 12/05/23 14:43) UNKNOWN Do you need a note to return to daycare/school/sports/work: No HPI HPI Comments History of Present Illness Details pt presents to the walkin today, accompanied by staff from [facility], for sick visit complaining of 3 days right great toe pain saw dietary worker aug 2023 and had ingrown toenail removed for last 3 days pain, swelling has returned denies any discharge from the nail called dietary worker but they do not have any appts until 12/19/23 denies fevers, chills, pain up the foot/leg [facility] Medical History Knee pain, left Age-related osteoporosis without current pathological fracture Urinary urgency COVID-19 virus infection Knee pain, bilateral Fatty liver Vitamin D deficiency History of tuberculosis Cataract, right eye B-cell lymphoma Mental and behavioral problem Obesity (BMI 30-39.9) Urinary incontinence Hypercholesterolemia Obstructive sleep apnea Schizophrenia Hypothyroidism Hypertension Surgical History History of cataract surgery Family History Father CVD (cardiovascular disease) Mother CVD (cardiovascular disease) Other Mental health disorder Social History Housing: Apartment Alcohol intake: never Patient Tobacco Use Status: Never used Tobacco e-Cigarette/Vaping Use: Never Used Second Hand Smoke Exposure: No service: No Current occupational status: disabled Cognitive needs: Yes Hearing needs: No Vision needs: Yes Review of Systems Const All systems reviewed & are unremarkable except as noted in HPI and below Physical Exam Vital Signs: Last Vital Signs Temp 97.8 F 12/05/23 14:43 Pulse 69 12/05/23 14:43 BP 112/80 12/05/23 14:43 Pulse Ox 96 12/05/23 14:43 Oxygen Delivery Method Room Air 12/05/23 14:43 BMI result Body Mass Index 34.8 General: awake, alert, oriented. Answers questions appropriately. Fully engaged in examination. Skin: warm, dry, intact HEENT: Normocephalic. Hearing intact. Cardiac: External chest normal in appearance. Respiratory: No cough, audible wheezing or stridor. Abdomen: without gross distension. MS: left great toe with swelling and tenderness along distal medial nail line. no drainage noted, no bruising or discoloration noted. no lymphangitis. Neurological: Oriented to person, place, time and situation. Thought process intact. No gait abnormalities appreciated. Psychiatric: Appropriate mood and affect. Good judgment and insight. Assessment & Plan Assessment & Plan (1) Ingrown right big toenail: Code(s): L60.0 - Ingrowing nail Plan Keflex 500mg po TID X 7 days follow up with podiatry return here for any new or worsening symptoms. all questions and concerns were answered, patient and staff agree with the plan. Medications: New cephalexin 500 mg PO TID 14 caps 0RF Coding Level of Care Code Est Pt Level 4 (54578) Diagnoses Ingrown right big toenail L60.0
[2023-12-05 14:43] VITALS: BP 112/80; PULSE 69; TEMP 36.6; O2SAT 96; BMI 34.8
== END 2023-12-05 15:37 | disposition home or self-care (01) ==
PROVIDERS: PCP Internal Medicine; Visit Provider Registered Nurse Emergency
DX: L60.0 Ingrowing nail (principal)
CPT/HCPCS: 99213

== ENCOUNTER 2023-12-29 09:37 | Outpatient (REF) | payer MEDICARE, MEDICAID, SELFPAY ==
[2023-12-29 14:40] LABS: Valproate 59.2 mcg/mL (50.0-100.0)
== END 2023-12-29 09:38 | disposition home or self-care (01) ==
LOC: HO.CHCLDS 09:37
PROVIDERS: Visit Provider General Practice
DX: Z13.89 Encounter for screening for other disorder (principal)
CPT/HCPCS: 36415; 80164

== ENCOUNTER 2024-01-12 07:16 | Day surgery (SDC) | payer MEDICARE, MEDICAID, SELFPAY ==
--- NOTE | 2024-01-11 08:32 | HO.ANESPROP2 ---
Documented by User: Leona Jones NP 01/11/24 08:33 HPI - Anesthesia Eval Consult details Narrative: 68yo F for Colonoscopy PMFSH Active Problems Active Problems: All Active Problems (Updated 12/05/23 @ 15:39 by Christine Palacios APRN, WEED CONTROL INSPECTOR) Ingrown right big toenail (Acute) Contact dermatitis (Acute) Encounter for screening for malignant neoplasm of colon (Acute) Lumbar degenerative disc disease (Acute) Onychomycosis (Acute) Umbilical hernia (Acute) Urge incontinence (Acute) Right lower quadrant abdominal pain (Acute) Thickened endometrium (Acute) Knee osteoarthritis (Acute) Parkinsonism (Acute) Right knee pain (Acute) Seborrhea (Acute) Eczema (Acute) Annual physical exam (Acute) Overactive bladder (Acute) Tinea corporis (Acute) Tremors of nervous system (Acute) Vitamin D deficiency (Acute) Constipation (Acute) Knee pain, bilateral (Acute) Obesity (BMI 30-39.9) (Acute) Hypercholesterolemia (Acute) Obstructive sleep apnea (Acute) Schizophrenia (Acute) Hypothyroidism (Acute) Hypertension (Acute) Osteoarthritis (Acute) Breast calcification, left (Acute) Past Medical History Medical History Knee pain, left Age-related osteoporosis without current pathological fracture Urinary urgency COVID-19 virus infection Knee pain, bilateral Fatty liver Vitamin D deficiency History of tuberculosis Cataract, right eye B-cell lymphoma Mental and behavioral problem Obesity (BMI 30-39.9) Urinary incontinence Hypercholesterolemia Obstructive sleep apnea Schizophrenia Hypothyroidism Hypertension Family History Family History Father CVD (cardiovascular disease) Mother CVD (cardiovascular disease) Other Mental health disorder Surgical History Surgical History History of cataract surgery Social History Social History Housing: Apartment Alcohol intake: never Patient Tobacco Use Status: Tobacco use Unknown e-Cigarette/Vaping Use: Never Used Second Hand Smoke Exposure: No Use of substances other than those prescribed or required for medical reasons: No Are you DNR?: No Advance Directives: No Advance Directives Information Provided: Yes service: No Current occupational status: disabled Cognitive needs: Yes Hearing needs: No Vision needs: Yes Meds Allergies Allergy/AdvReac Type Severity Reaction Status Date / Time Penicillins [PENICILLINS] Allergy Unknown UNKNOWN Verified 01/12/24 07:52 Home Medications Medication Instructions Recorded Confirmed Last Taken Type trazodone 150 mg tablet 150 mg PO DAILY 09/05/20 07/07/23 Unknown History CPAP #1 ea 02/25/21 07/07/23 Unknown History ketoconazole 2 % shampoo 1 appl topical 01/27/22 07/07/23 Unknown History benztropine 0.5 mg tablet 0.5 mg PO BID 12/13/22 01/12/24 Unknown History carboxymethylcellulose 0.5 1 drp ophthalmic (eye) BID 01/25/23 01/12/24 Unknown History %-glycerin 0.9 % eye drops (Refresh Optive) tobramycin 0.3 %-dexamethasone 0.1 1 drp ophthalmic (eye) .QD 01/25/23 01/12/24 Unknown History % eye drops,suspension (TobraDex) vit C 250 mg-vit E 90 mg-zinc 40 1 tab PO .QD 01/25/23 07/07/23 Unknown History mg-copper 1 ln-xsxlpl-ciqucu capsule (PreserVision AREDS-2) aripiprazole 10 mg disintegrating 10 mg PO DAILY 12/05/23 01/12/24 Unknown History tablet divalproex 250 mg tablet,delayed 250 mg PO QPM 12/05/23 01/12/24 Unknown History release latanoprost 0.005 % eye drops 1 drp ophthalmic (eye) 12/05/23 Unknown History divalproex 500 mg tablet,delayed 500 mg PO QAM 01/12/24 01/12/24 Unknown History release (Depakote) divalproex 500 mg tablet,delayed 500 mg PO QPM 01/12/24 01/12/24 Unknown History release (Depakote) Exam Pertinent Lab Results Pertinent Lab Results: Laboratory Tests 09/09/23 09:13 WBC 4.9 Hgb 13.8 Hct 41.6 Plt Count 215 Sodium 141 Potassium 4.9 Chloride 107 Carbon Dioxide 26 BUN 15 Creatinine 0.64 Assessment and Plan Assessment Anesthesia Assessment: Chart Reviewed Documented by User: Lilly Daugherty MD 01/12/24 09:24 [facility] Active Problems Active Problems: All Active Problems (Updated 12/05/23 @ 15:39 by Christine Palacios, PUBLIC TRANSIT TROLLEY DRIVER, WEED CONTROL INSPECTOR) Ingrown right big toenail (Acute) Contact dermatitis (Acute) Encounter for screening for malignant neoplasm of colon (Acute) Lumbar degenerative disc disease (Acute) Onychomycosis (Acute) Umbilical hernia (Acute) Urge incontinence (Acute) Right lower quadrant abdominal pain (Acute) Thickened endometrium (Acute) Knee osteoarthritis (Acute) Parkinsonism (Acute) Right knee pain (Acute) Seborrhea (Acute) Eczema (Acute) Annual physical exam (Acute) Overactive bladder (Acute) Tinea corporis (Acute) Tremors of nervous system (Acute) Vitamin D deficiency (Acute) Constipation (Acute) Knee pain, bilateral (Acute) Obesity (BMI 30-39.9) (Acute) Hypercholesterolemia (Acute) Obstructive sleep apnea (Acute) Schizophrenia (Acute) Hypothyroidism (Acute) Hypertension (Acute) Osteoarthritis (Acute) Breast calcification, left (Acute) Past Medical History Medical History Knee pain, left Age-related osteoporosis without current pathological fracture Urinary urgency COVID-19 virus infection Knee pain, bilateral Fatty liver Vitamin D deficiency History of tuberculosis Cataract, right eye B-cell lymphoma Mental and behavioral problem Obesity (BMI 30-39.9) Urinary incontinence Hypercholesterolemia Obstructive sleep apnea Schizophrenia Hypothyroidism Hypertension Family History Family History Father CVD (cardiovascular disease) Mother CVD (cardiovascular disease) Other Mental health disorder Surgical History Surgical History History of cataract surgery History of Problems with Anesthesia: No Social History Social History Housing: Apartment Alcohol intake: never Patient Tobacco Use Status: Tobacco use Unknown e-Cigarette/Vaping Use: Never Used Second Hand Smoke Exposure: No Use of substances other than those prescribed or required for medical reasons: No Are you DNR?: No Advance Directives: No Advance Directives Information Provided: Yes service: No Current occupational status: disabled Cognitive needs: Yes Hearing needs: No Vision needs: Yes Meds Allergies Allergy/AdvReac Type Severity Reaction Status Date / Time Penicillins [PENICILLINS] Allergy Unknown UNKNOWN Verified 01/12/24 07:52 Home Medications Medication Instructions Recorded Confirmed Last Taken Type trazodone 150 mg tablet 150 mg PO DAILY 09/05/20 07/07/23 Unknown History CPAP #1 ea 02/25/21 07/07/23 Unknown History ketoconazole 2 % shampoo 1 appl topical 01/27/22 07/07/23 Unknown History benztropine 0.5 mg tablet 0.5 mg PO BID 12/13/22 01/12/24 Unknown History carboxymethylcellulose 0.5 1 drp ophthalmic (eye) BID 01/25/23 01/12/24 Unknown History %-glycerin 0.9 % eye drops (Refresh Optive) tobramycin 0.3 %-dexamethasone 0.1 1 drp ophthalmic (eye) .QD 01/25/23 01/12/24 Unknown History % eye drops,suspension (TobraDex) vit C 250 mg-vit E 90 mg-zinc 40 1 tab PO .QD 01/25/23 07/07/23 Unknown History mg-copper 1 eb-aybewd-rwvnei capsule (PreserVision AREDS-2) aripiprazole 10 mg disintegrating 10 mg PO DAILY 12/05/23 01/12/24 Unknown History tablet divalproex 250 mg tablet,delayed 250 mg PO QPM 12/05/23 01/12/24 Unknown History release latanoprost 0.005 % eye drops 1 drp ophthalmic (eye) 12/05/23 Unknown History divalproex 500 mg tablet,delayed 500 mg PO QAM 01/12/24 01/12/24 Unknown History release (Depakote) divalproex 500 mg tablet,delayed 500 mg PO QPM 01/12/24 01/12/24 Unknown History release (Depakote) Exam Airway Mallampati Class: II (edentulous) TM Dist: >3cm Neck ROM: Full Loose/Missing/Broken Teeth: Yes, Upper and Lower Heart: RRR Lungs: CTA Assessment and Plan Assessment Anesthesia Assessment: Anesthesia Plan Discussed Final Anesthetic Review History of Problems with Anesthesia: No NPO: Yes ASA Class: III Final Preanesthetic Review: Meds/Allgs Chart Reviewed, Consent Obtained/Reviewed and Anes Risks/Benef Reviewed Patient Risk: Intermediate Procedure Risk: Low Anesthetic Plan Anesthetic Plan: MAC: Disposition: Standard PACU
[2024-01-12 08:00] VITALS: BP 104/80; PULSE 88; RESP 16; TEMP 36.9; O2SAT 97
[2024-01-12 08:07] VITALS: BMI 34.8
--- NOTE | 2024-01-12 08:22 | MHC.SHP ---
Pre-Procedural Eval Section A - 24 Hr Update-Section A only Date of Service: 01/12/24 Section B - Complete if H&P > 30 days Chief Complaint: screening Details of Present Illness: Knee pain, left Age-related osteoporosis without current pathological fracture Urinary urgency COVID-19 virus infection Knee pain, bilateral Fatty liver Vitamin D deficiency History of tuberculosis Cataract, right eye B-cell lymphoma Mental and behavioral problem Obesity (BMI 30-39.9) Urinary incontinence Hypercholesterolemia Obstructive sleep apnea Schizophrenia Hypothyroidism Hypertension Surgical History History of cataract surgery Allergies: Allergies Allergy/AdvReac Type Severity Reaction Status Date / Time Penicillins [PENICILLINS] Allergy Unknown UNKNOWN Verified 01/12/24 07:52 Review of Systems Review of Systems Comment: Limited ROS which is negative Exam Exam Comment: Gen appear: No acute distress HEENT: no icterus Chest: No overt resp distress Abd: soft, nontender, nondistended Psych: Stable affect, answering questions appropriately Neuro: A/Ox3 noted to move all extremities spontaneously Ext: no peripheral edema Plan Diagnosis/Plan: Unchanged I have reviewed the history and physical and performed a pertinent physical examination on my patient. No changes have occurred unless specified. Time Spent With Patient Time: Total time managing care of this patient today ____ minutes.
[2024-01-12] MEDS: Lactated Ringers 1,000 ML 100 ML IVCONT (08:28)
--- NOTE | 2024-01-12 09:02 | PC.NURSE ---
Consents obtained via phone with Legal Guardian Mariza Gomez. Guardianship paperwork in chart. [phone].
--- NOTE | 2024-01-12 09:07 | P.OP_ITS ---
Operative Note Operative Note Date of Service: 01/12/24 Narrative: Procedure: Colonoscopy Indication: Personal history of polyps Endoscopist: Flora Llanos MD Anesthesia Provider: Dr Lilly Daugherty Anesthesia type: MAC Instrument: Olympus [id number]-H190L Consent: Indication, risks vs benefits, and alternatives were discussed with the patient who gave written informed consent to proceed. EKG, pulse, pulse oximetry and blood pressure were monitored throughout the procedure. Please see anesthesia flowsheet. Procedure: The patient was brought to the procedure room and placed in the left lateral decubitus position. IV medications were administered by the anesthesia provider in attendance. A digital rectal exam was performed which was normal. A distal attachment capt was affixed to the tip of the scope and the colonoscope was then inserted through the anus and advanced through the colon to the cecum at 80 cm,and terminal ileum. Appendiceal orifice and ileocecal valve were identified. Mucosa was carefully examined under high definition white light as the instrument was slowly withdrawn in a retrograde panoramic fashion. Retroflexion was performed in rectum. The procedure was not difficult. There were no immediate obvious complications. The quality of the prep was BBPS: 2+2+3 = adequate Withdrawal time 16 minutes. Limitations: No limitations. Findings: Mucosa: Normal to cecum and terminal ileum. Protruding lesions: * 1 sessile polyp of size 2 mm in cecum. Cold snare polypectomy was performed. The polyp was completely removed and retrieved. * 2 sessile polyps of size 2-5 mm in descending colon. Cold snare polypectomy was performed. The polyps were completely removed and retrieved. * 3 sessile polyp of size 2-6 mm in rectum colon. Cold snare polypectomy was performed. The polyps were completely removed and retrieved. * Medium internal hemorrhoids without stigmata of recent bleeding. Excavated lesions: * Mild diverticulosis of left sided colon. Impression: 1. Normal colon and terminal ileum mucosa. 2. Total of 6 polyps removed from cecum, descending, and rectum. 3. Inernal hemorrhoids 4. Diverticulosis Recommendations: - Follow path results. - Repeat colonoscopy in 3 years if polyps are adenomas or sessile serrated, otherwise 5 years.
[2024-01-12 09:55] VITALS: BP 134/76; PULSE 83; RESP 18; TEMP 36.9; O2SAT 97
--- NOTE | 2024-01-12 10:02 | P.OP_ITS ---
Operative Note Operative Note Narrative: Procedure: Colonoscopy Indication: [Screening] [Personal history of polyps] [Chronic Diarrhea] [Lower GI bleeding] [Anemia] [+ FIT test] [Family history of colon cancer] Endoscopist: Flora Llanos MD Anesthesia Provider: Anesthesia type: [MAC] [General Anesthesia] Instrument: Olympus [id number] Consent: Indication, risks vs benefits, and alternatives were discussed with the patient who gave written informed consent to proceed. [An certified court interpreter was utilized to assist with the consent]. Monitoring: EKG, pulse, pulse oximetry and blood pressure were monitored throughout the procedure. Please see anesthesia flowsheet. Procedure: The patient was brought to the procedure room and placed in the left lateral decubitus position. IV medications were administered by the anesthesia provider in attendance. A digital rectal exam was performed which was [normal] [abnormal due to finding of hemorrhoids, anal tag, anal fistula]. The colonoscope was then inserted through the anus and advanced through the colon to the cecum at [cm,][and terminal ileum]. Mucosa was carefully examined under high definition white light as the instrument was slowly withdrawn in a retrograde panoramic fashion. Retroflexion was performed in [ascending colon and] rectum. The procedure was [not difficult] [somewhat difficult]. There were no immediate obvious complications. The quality of the prep was BBPS: []+[]+[] = [adequate] [inadequate in] Withdrawal time [] minutes. Limitations: [No limitations.] [Poor prep.] Findings: Mucosa: [Normal to cecum and terminal ileum.] [Loss of normal vacular pattern] [Erythema and congestion] [Erosions and ulceration] [Cobblestoning] [Random biopsies were taken to r/o microscopic colitis] [Cold forceps biopsies were taken from [colon] and sent for histology.] Protruding lesions: * [] [sessile] [semi-pedunculated] [pedunculated] polyp of size [] mm in []colon. Cold snare polypectomy was performed. The polyp was completely removed and retrieved. * [] [sessile] [semi-pedunculated] [pedunculated] polyp of size [] mm in []colon. Cold snare polypectomy was performed. The polyp was completely removed and retrieved. * [] [sessile] [semi-pedunculated] [pedunculated] polyp of size [] mm in []colon. Cold snare polypectomy was performed. The polyp was completely removed and retrieved. * [Medium] [Large] external hemorrhoids [without] stigmata of recent bleeding. Excavated lesions: * [Small] [Medium] [Large] diverticulosis of [sigmoid] [left sided] [whole] colon. Impression: 1. Normal colon mucosa 2. Total of [] polyps removed from [cecum,] [ascending,] [transverse,] [descending,] [and sigmoid] colon [and rectum]. 3. External hemorrhoids Recommendations: - Follow path results. - Repeat colonoscopy in [3] [5-7] [7-10] years if polyps are adenomas or sessile serrated.
[2024-01-12 10:10] VITALS: BP 148/78; PULSE 74; RESP 18; TEMP 36.8; O2SAT 97
== END 2024-01-12 10:57 | disposition home or self-care (01) ==
PROVIDERS: PCP Internal Medicine; Visit Provider Internal Medicine
PROC: 0DJD8ZZ Inspection of Lower Intestinal Tract, Via Natural or Artificial Opening Endoscopic (ICD-10-PCS; CPT 45378; principal; 2024-01-12 08:50)
DX: Z12.11 Encounter for screening for malignant neoplasm of colon (principal); Z86.010 Personal history of colon polyps; D12.0 Benign neoplasm of cecum; D12.4 Benign neoplasm of descending colon; D12.8 Benign neoplasm of rectum; K63.89 Other specified diseases of intestine; K57.30 Diverticulosis of large intestine without perforation or abscess without bleeding; K64.8 Other hemorrhoids; K59.01 Slow transit constipation; K76.0 Fatty (change of) liver, not elsewhere classified; I10 Essential (primary) hypertension; E78.00 Pure hypercholesterolemia, unspecified; E55.9 Vitamin D deficiency, unspecified; E03.9 Hypothyroidism, unspecified; M81.0 Age-related osteoporosis without current pathological fracture; E66.9 Obesity, unspecified; Z68.34 Body mass index [BMI] 34.0-34.9, adult; F20.9 Schizophrenia, unspecified; G47.33 Obstructive sleep apnea (adult) (pediatric); Z99.89 Dependence on other enabling machines and devices; Z79.899 Other long term (current) drug therapy; Z88.0 Allergy status to penicillin
CPT/HCPCS: 45385; 88305; J2704

== ENCOUNTER → 2024-01-12 07:16 | Outpatient (BNV) | payer MEDICARE, MEDICAID, SELFPAY | PROVIDERS: PCP Internal Medicine; Visit Provider Internal Medicine | DX: Z12.11 Encounter for screening for malignant neoplasm of colon (principal); Z86.010 Personal history of colon polyps; D12.0 Benign neoplasm of cecum; D12.4 Benign neoplasm of descending colon; D12.8 Benign neoplasm of rectum; K64.8 Other hemorrhoids; K57.30 Diverticulosis of large intestine without perforation or abscess without bleeding | CPT/HCPCS: 45385 ==

== ENCOUNTER 2024-02-17 08:16 | Outpatient (AMB) | payer MEDICARE, MEDICAID, SELFPAY ==
--- NOTE | 2024-02-17 08:19 | A.OFFVIS_ITS ---
Vital Signs 02/17/24 08:21 Height 5 ft 1 in Weight 182 lb 15.739 oz BMI 34.6 BP 134/63 Blood Pressure Location Lt brachial Position Sitting Pulse 70 Intake Visit Reasons: follow up from procedure r/s from 01/26 Intake Note: Shelby presents in the office as a follow up. CC: No concerns since the procedure. Allergies Penicillins [PENICILLINS] Allergy (Unknown, Verified 01/12/24 07:52) UNKNOWN HPI HPI follow up from procedure r/s from 01/26: Details: LAST VISIT Right lower quadrant abdominal pain Constipation Screen for colon cancer Plan Patient had colonoscopy in November of 2019 1 tubular adenoma found, most likely patient had suboptimal prep then as biopsy showed vegetable material found in patient's ascending colon. Will send patient for colonoscopy now. Patient is moving her bowels better now that she is taking Senokot daily. What to expect before during and after procedure discussed with patient's CLIENT SERVICES ACCOUNT MANAGER. Patient is no longer on aspirin. History of LIMA, using CPAP every night. History of tuberculosis in the past, treated. No other infectious diseases reported. Patient denies any cardiac or respiratory symptoms. No issues with anesthesia in the past. Discussed with patient's CLIENT SERVICES ACCOUNT MANAGER the importance of good bowel prep. I will see her after the procedure, sooner on as needed basis. Medications New bisacodyl (Dulcolax (bisacodyl)) take 4 tabs at noon the day before your colonoscopy 20 mg (4 x 5 mg) PO ONCE 1 day 4 tabs 0RF Z12.11 polyethylene glycol 3350 (Miralax) As directed by gastroenterology department at [facility] 238 grams PO ONCE 238 grams 0RF Z12.11 COLONOSCOPY Findings: Mucosa: Normal to cecum and terminal ileum. Protruding lesions: * 1 sessile polyp of size 2 mm in cecum. Cold snare polypectomy was performed. The polyp was completely removed and retrieved. * 2 sessile polyps of size 2-5 mm in descending colon. Cold snare polypectomy was performed. The polyps were completely removed and retrieved. * 3 sessile polyp of size 2-6 mm in rectum colon. Cold snare polypectomy was performed. The polyps were completely removed and retrieved. * Medium internal hemorrhoids without stigmata of recent bleeding. Excavated lesions: * Mild diverticulosis of left sided colon. Impression: 1. Normal colon and terminal ileum mucosa. 2. Total of 6 polyps removed from cecum, descending, and rectum. 3. Inernal hemorrhoids 4. Diverticulosis Recommendations: - Follow path results. - Repeat colonoscopy in 3 years if polyps are adenomas or sessile serrated, otherwise 5 years. PATHOLOGY RESULTS Diagnosis A. Colon, rectal polyps: Tubular adenoma (1 piece); negative for high-grade dysplasia and carcinoma, and hyperplastic polyp (1 piece). B. Colon, cecal polyp: Tubular adenoma; negative for high-grade dysplasia and carcinoma. C. Colon, descending, polyps: Tubular adenoma/s (2 pieces); negative for high- grade dysplasia and carcinoma, colonic mucosa with minimal hyperplastic changes (1 piece), and colonic mucosa with no specific change (2 pieces) TODAY'S VISIT Patient is here today for follow-up and to discuss colonoscopy results. Patient is accompanied by her CLIENT SERVICES ACCOUNT MANAGER. Patient reports that she has been doing well. Denies any ill effects from the prep, anesthesia or procedure itself. Patient reports that she has been feeling well. Since she was started on senna and Colace she no longer experiences right lower quadrant pain. Patient is moving her bowels daily without any issues. Denies any abdominal pain, cramping, diarrhea, constipation. Patient denies any dyspepsia, dysphagia or odynophagia. Denies any melena, hematochezia, unintentional weight loss or ribbon like stools. Patient denies any GI concerning symptoms today. [facility] Medical History (Updated 02/17/24 @ 08:23 by Roseann [facility]) Diverticulosis Tubular adenoma of colon Knee pain, left Age-related osteoporosis without current pathological fracture Urinary urgency COVID-19 virus infection Knee pain, bilateral Fatty liver Vitamin D deficiency History of tuberculosis Cataract, right eye B-cell lymphoma Mental and behavioral problem Obesity (BMI 30-39.9) Urinary incontinence Hypercholesterolemia Obstructive sleep apnea Schizophrenia Hypothyroidism Hypertension Surgical History History of cataract surgery Family History Father CVD (cardiovascular disease) Mother CVD (cardiovascular disease) Other Mental health disorder Social History Housing: Apartment Alcohol intake: never Patient Tobacco Use Status: Tobacco use Unknown e-Cigarette/Vaping Use: Never Used Second Hand Smoke Exposure: No service: No Current occupational status: disabled Cognitive needs: Yes Hearing needs: No Vision needs: Yes Review of Systems Const Denies weight gain and Denies weight loss ENT Reports no additional complaints, Denies dysphagia and Denies odynophagia Card Reports no additional complaints Resp Reports no additional complaints GI Denies abdominal pain, Denies belching, Denies melena, Denies bloating, Denies change in bowel habits, Denies dysphagia, Denies excessive flatus, Denies dyspepsia, Denies heartburn, Denies diarrhea, Denies loose stools, Denies nausea, Denies odynophagia and Denies vomiting Musc Reports no additional complaints Neuro Reports no additional complaints Psych Reports no additional complaints Endo Reports no additional complaints Physical Exam Vital Signs: Last Vital Signs Pulse 70 02/17/24 08:21 BP 134/63 02/17/24 08:21 BMI result Body Mass Index 34.6 Const General: healthy appearing, no acute distress and well developed Nutritional Appearance: obese Orientation/consciousness: oriented to person and oriented to place Resp Effort & Inspection: normal respiratory effort, able to speak in complete sentences, no tracheal deviation and symmetric chest movement Auscultation: clear to auscultation bilaterally Cardio Rate: regular rate GI Inspection: Yes normal to inspection and No distended Palpation (GI): Soft to palpation, not firm, nontender and No hepatosplenomegaly present Auscultation: normal bowel sounds General: Yes no CVA tenderness Back/Spine/Pelvis Back: no CVA tenderness Skin General skin exam: elasticity normal, turgor normal and dry skin Neuro General: oriented to person and oriented to place Psych Appearance: grossly normal Affect: normal affect Assessment & Plan Assessment & Plan (1) Constipation: Code(s): K59.00 - Constipation, unspecified Category: Medical Qualifiers: Constipation type: slow transit constipation Qualified Code(s): K59.01 - Slow transit constipation (2) Tubular adenoma of colon: Code(s): D12.6 - Benign neoplasm of colon, unspecified Category: Medical (3) Diverticulosis: Code(s): K57.90 - Diverticulosis of intestine, part unspecified, without perforation or abscess without bleeding Category: Medical (4) Internal hemorrhoids without complication: Code(s): K64.8 - Other hemorrhoids Plan Tubular adenoma found without high-grade dysplasia or carcinoma. Moderate diverticulosis in the left side of her colon and internal hemorrhoids. Patient denies any GI concerning symptoms. Denies any melena, hematochezia, uninten tional weight loss or ribbon like stools. Patient can continue taking Senokot and Colace. Increase fluid intake and activity to promote better bowel motility. Patient can return in the office in 6 months, sooner on as needed basis. Patient is agreeable to this plan and verbalizes understanding of instructions. He was given the opportunity to ask questions and all questions answered. Thank you for allowing me to participate in her care Coding Level of Care Code Est Pt Level 3 (74301) Diagnoses Slow transit constipation K59.01 Constipation type: slow transit constipation Tubular adenoma of colon D12.6 Diverticulosis K57.90 Internal hemorrhoids without complication K64.8 Time Spent (min) 30 Comment 20 minutes spent with patient and additional 10 minutes spent reviewing her records
[2024-02-17 08:21] VITALS: BP 134/63; PULSE 70; BMI 34.6
== END 2024-02-17 08:38 | disposition home or self-care (01) ==
PROVIDERS: PCP Internal Medicine; Visit Provider Nurse Practitioner Family
DX: K59.01 Slow transit constipation (principal); D12.6 Benign neoplasm of colon, unspecified; K57.90 Diverticulosis of intestine, part unspecified, without perforation or abscess without bleeding; K64.8 Other hemorrhoids
CPT/HCPCS: 99213

== ENCOUNTER → 2024-02-17 08:16 | Outpatient (BNVA) | payer MEDICARE, MEDICAID, SELFPAY | PROVIDERS: PCP Internal Medicine; Visit Provider Nurse Practitioner Family | DX: K57.30 Diverticulosis of large intestine without perforation or abscess without bleeding (principal); D12.0 Benign neoplasm of cecum; D12.4 Benign neoplasm of descending colon; D12.8 Benign neoplasm of rectum; K59.01 Slow transit constipation; K64.8 Other hemorrhoids; Z98.890 Other specified postprocedural states | CPT/HCPCS: 99212 ==

== ENCOUNTER 2024-03-12 09:52 | Outpatient (AMB) | payer MEDICARE, MEDICAID, SELFPAY ==
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
== END 2024-03-12 10:22 | disposition home or self-care (01) ==
PROVIDERS: PCP Internal Medicine; Visit Provider Nurse Practitioner Family
DX: N39.41 Urge incontinence (principal); N32.81 Overactive bladder; Z13.9 Encounter for screening, unspecified
CPT/HCPCS: 99213

== ENCOUNTER → 2024-03-12 09:52 | Outpatient (BNVA) | payer MEDICARE, MEDICAID, SELFPAY | PROVIDERS: PCP Internal Medicine; Visit Provider Nurse Practitioner Family | DX: N39.41 Urge incontinence (principal); N32.81 Overactive bladder | CPT/HCPCS: 51798; 81003; 99212 ==

== ENCOUNTER → 2024-04-30 08:30 | Outpatient (BNV) | payer MEDICARE, MEDICAID, SELFPAY | PROVIDERS: PCP Internal Medicine; Visit Provider Radiology Diagnostic Radiology | DX: Z12.31 Encounter for screening mammogram for malignant neoplasm of breast (principal) | CPT/HCPCS: 77063; 77067 ==

== ENCOUNTER 2024-04-30 08:41 | Outpatient (REF) | payer MEDICARE, MEDICAID, SELFPAY ==
--- NOTE | ~2024-04-30 | MM_ITS ---
EXAMINATION: MM SCREENING DIGITAL BREAST TOMOSYNTHESIS, BILATERAL CLINICAL INFORMATION: Screening. Asymptomatic. COMPARISON: Mammography: This study is compared with prior exams dating back to 2020. TECHNIQUE: Digital breast tomosynthesis is performed in both the craniocaudal and mediolateral oblique views along with computer-aided detection (CAD). Synthesized 2D images are generated from the tomosynthesis. FINDINGS: There are scattered areas of fibroglandular density (ACR BI-RADS breast composition Category b). There are no significant masses, abnormal calcifications, or other abnormalities. There is a tissue marker in the upper outer quadrant of the left breast from prior benign percutaneous biopsy. MM/MM tomosynthesis screening BI IMPRESSION: No mammographic evidence of malignancy. ASSESSMENT: BI-RADS BI-RADS 2 - Benign Findings RECOMMENDATION: Routine annual mammography screening. 1 year F/U This examination should not preclude the clinical evaluation of a suspicious palpable abnormality. This patient's information was entered into a reminder system with a target due date for their next mammogram.
== END 2024-04-30 08:42 | disposition home or self-care (01) ==
LOC: HO.MAMMO 08:41
PROVIDERS: PCP Internal Medicine; Visit Provider Internal Medicine
DX: Z12.31 Encounter for screening mammogram for malignant neoplasm of breast (principal)
CPT/HCPCS: 77063; 77067

== ENCOUNTER 2024-05-10 14:59 | Outpatient (AMB) | payer MEDICARE, MEDICAID, SELFPAY ==
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
[2024-05-10 15:24] VITALS: BP 132/84; PULSE 70; O2SAT 100; BMI 34.7
== END 2024-05-10 16:04 | disposition home or self-care (01) ==
PROVIDERS: PCP Internal Medicine; Visit Provider Internal Medicine
DX: D12.6 Benign neoplasm of colon, unspecified (principal); E66.9 Obesity, unspecified; F20.9 Schizophrenia, unspecified; Z68.34 Body mass index [BMI] 34.0-34.9, adult; E78.00 Pure hypercholesterolemia, unspecified; G47.33 Obstructive sleep apnea (adult) (pediatric); E03.9 Hypothyroidism, unspecified; I10 Essential (primary) hypertension; N32.81 Overactive bladder; Z00.00 Encounter for general adult medical examination without abnormal findings; H61.23 Impacted cerumen, bilateral
CPT/HCPCS: 99214

== ENCOUNTER 2024-05-22 09:20 | Outpatient (REF) | payer MEDICARE, MEDICAID, SELFPAY ==
[2024-05-22 16:03] LABS: Appearance Urine Clear; Color Urine Yellow; Glucose Urine UA Negative (Negative); Leukocyte Esterase Urine Moderate (2+) (Negative); Nitrite Urine Negative (Negative); PH 7.5 (5.0-9.0); UMIC TRIGGER UA YES; Urine Blood Negative (Negative); Urine Ketones Negative (Negative); Urine Protein Negative (Neg-Trace)
[2024-05-22 16:17] LABS: MANUAL DIFF FLAG NO
[2024-05-22 16:18] LABS: Bacteria Urine None Seen (None Seen); Hyaline Casts Urine 0-2 /LPF (0-2); RBC Urine 0-2 /HPF (0-2); Squamous Epithelial Cell Urine 0-2 /HPF (0-2); WBC Urine 0-5 /HPF (0-5)
[2024-05-22 16:32] LABS: Basophils Absolute Auto 0.1 X10*3/uL (0.0-0.2); Basophils Percent Auto 1.2 % (0-2); Eosinophils Absolute Auto 0.1 X10*3/uL (0.0-0.4); Eosinophils Percent Auto 2.4 % (0-4); Hematocrit 43.7 % (37.0-47.0); Hemoglobin 14.8 g/dl (12.0-16.0); Imm Gran Abs Auto 0.03 X10*3/uL (0.00-0.03); Imm Gran Pct Auto 0.6 % (0.0-0.4); Lymphocytes Absolute Auto 1.8 X10*3/uL (1.2-4.9); Lymphocytes Percent Auto 35.9 % (20-40); Mean Corpuscular HGB Conc 33.9 g/dl (31.0-35.0); Mean Corpuscular Hemoglobin 32.5 pg (27.0-33.0); Mean Platelet Volume 11.1 fL (9.4-12.3); Monocytes Absolute Auto 0.6 X10*3/uL (0.1-1.2); Neutrophils Absolute Auto 2.4 x10*3/uL (2.0-8.3); Neutrophils Percent Auto 48.9 % (45-73); Platelet Count 230 X10*3/uL (160-400); Red Blood Count 4.55 X10*6/uL (4.20-5.50); Red Cell Distribution Width 12.6 % (11.0-16.0)
[2024-05-22 16:53] LABS: Alanine Aminotransferase 20 U/L (0-31); Albumin Level 4.4 g/dL (3.5-5.0); Alkaline Phosphatase 48 U/L (39-117); Anion Gap 12 (12-20); Aspartate Amino Transferase 18 U/L (5-31); Bilirubin Total 0.4 mg/dL (0.0-1.0); Blood Urea Nitrogen 15 mg/dL (9-16); Calcium 10.2 mg/dL (8.4-10.2); Carbon Dioxide 31 mmol/L (22-29); Chloride 100 mmol/L (96-108); Cholesterol 203 mg/dL (<200); Estimated Glomerular Filt Rate > 60; Glucose Random 92 mg/dL (60-115); HDL Cholesterol 54 mg/dL (>40); LDL Cholesterol Calculated 124 mg/dL (<100); Potassium 4.7 mmol/L (3.3-5.1); Sodium 138 mmol/L (135-145); Total Protein 7.5 g/dL (6.5-8.0); Triglycerides 128 mg/dL (<150)
[2024-05-22 17:10] LABS: Free T4 (Free Thyroxine) 0.99 ng/dL (0.71-1.85); Thyroid Stimulating Hormone 2.15 uIU/mL (0.32-4.0); Vitamin D 25-OH Total 69.5 ng/mL (>30)
[2024-05-22 17:51] LABS: Folate 9.6 ng/mL (> or = 4.0); Vitamin B12 701 pg/mL (200-900)
== END 2024-05-22 09:21 | disposition home or self-care (01) ==
LOC: HO.CHCLDS 09:20
PROVIDERS: Visit Provider Internal Medicine
DX: E78.00 Pure hypercholesterolemia, unspecified (principal)
CPT/HCPCS: 36415; 80053; 80061; 81001; 82306; 82607; 82746; 84439; 84443; 85025

== ENCOUNTER 2024-06-12 09:19 | Outpatient (AMB) | payer MEDICARE, MEDICAID, SELFPAY ==
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
== END 2024-06-12 09:48 | disposition home or self-care (01) ==
PROVIDERS: PCP Internal Medicine; Visit Provider Nurse Practitioner Family
DX: N39.41 Urge incontinence (principal); N32.81 Overactive bladder; Z13.9 Encounter for screening, unspecified
CPT/HCPCS: 99213; G2211

== ENCOUNTER → 2024-06-12 09:19 | Outpatient (BNVA) | payer MEDICARE, MEDICAID, SELFPAY | PROVIDERS: PCP Internal Medicine; Visit Provider Nurse Practitioner Family | DX: N39.41 Urge incontinence (principal); N32.81 Overactive bladder | CPT/HCPCS: 51798; 81003; 99212 ==

== ENCOUNTER 2024-08-17 08:12 | Outpatient (AMB) | payer MEDICARE, MEDICAID, SELFPAY ==
--- NOTE | 2024-08-17 08:15 | MHC.OFFVIS ---
Vital Signs 08/17/24 08:16 Height 5 ft 1 in Weight 186 lb 8.177 oz BMI 35.2 BP 142/70 H Blood Pressure Location Rt brachial Position Sitting Pulse 74 Pulse Source Pulse Oximeter Pulse Oximetry (%) 95 Oxygen Delivery Method Room Air Intake Visit Reasons: 6 month follow up Intake Note: Relevant Flags or Indicators ? Requires Toucher Up? Melchor Ryan presents in office today for a scheduled 6 mos FUV. CC; Since last visit; labs ordered ? per other office as of 05/22/24. Rx ordered ? no. Diagnostics/images ordered ? none. Relevant GI Sx as reported per pt? None ? Hx of any recent surgeries? None Toucher Up Required: Yes Toucher Up Services: Toucher Up Present Toucher Up Name: Gogo -Seferino [id number] Information Interpreted: non-clinical & clinical Accompanied by: Other Relationship Allergies Penicillins [PENICILLINS] Allergy (Unknown, Verified 08/17/24 08:16) UNKNOWN HPI HPI 6 month follow up: Details: LAST VISIT Constipation Tubular adenoma of colon Diverticulosis Internal hemorrhoids without complication Plan Tubular adenoma found without high-grade dysplasia or carcinoma. Moderate diverticulosis in the left side of her colon and internal hemorrhoids. Patient denies any GI concerning symptoms. Denies any melena, hematochezia, unintentional weight loss or ribbon like stools. Patient can continue taking Senokot and Colace. Increase fluid intake and activity to promote better bowel motility. Patient can return in the office in 6 months, sooner on as needed basis. Patient is agreeable to this plan and verbalizes understanding of instructions. He was given the opportunity to ask questions and all questions answered. ? TODAY'S VISIT Patient is here today for follow-up. 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 Patient reports that she has been feeling better since the last time I have seen her. She is moving her bowels without any issues. Taking Senokot daily and stool softeners. Denies melena, hematochezia, unintentional weight loss or ribbon like stools. Patient is due to go for repeat colonoscopy in December of 2026. Patient denies any dyspepsia, dysphagia or odynophagia. Good appetite, no nausea or vomiting. Patient and staff reports that she is doing very well. [facility] Medical History Diverticulosis Tubular adenoma of colon Knee pain, left Age-related osteoporosis without current pathological fracture Urinary urgency COVID-19 virus infection Knee pain, bilateral Fatty liver Vitamin D deficiency History of tuberculosis Cataract, right eye B-cell lymphoma Mental and behavioral problem Obesity (BMI 30-39.9) Urinary incontinence Hypercholesterolemia Obstructive sleep apnea Schizophrenia Hypothyroidism Hypertension Surgical History History of cataract surgery Family History Father CVD (cardiovascular disease) Mother CVD (cardiovascular disease) Other Mental health disorder Social History Housing: Apartment Alcohol intake: never Patient Tobacco Use Status: Tobacco use Unknown e-Cigarette/Vaping Use: Never Used Second Hand Smoke Exposure: No service: No Current occupational status: disabled Cognitive needs: Yes Hearing needs: No Vision needs: Yes Review of Systems Const Denies weight gain and Denies weight loss ENT Reports no additional complaints, Denies dysphagia and Denies odynophagia Card Reports no additional complaints Resp Reports no additional complaints GI Denies abdominal pain, Denies belching, Denies melena, Denies bloating, Denies change in bowel habits, Denies dysphagia, Denies excessive flatus, Denies dyspepsia, Denies heartburn, Denies diarrhea, Denies loose stools, Denies nausea, Denies odynophagia and Denies vomiting Musc Reports no additional complaints Neuro Reports no additional complaints Psych Reports no additional complaints Endo Reports no additional complaints Physical Exam Vital Signs: Last Vital Signs Pulse 74 08/17/24 08:16 BP 142/70 H 08/17/24 08:16 Pulse Ox 95 08/17/24 08:16 Oxygen Delivery Method Room Air 08/17/24 08:16 BMI result Body Mass Index 35.2 Const General: healthy appearing and no acute distress Nutritional Appearance: obese Orientation/consciousness: oriented to person and oriented to place Resp Effort & Inspection: normal respiratory effort, able to speak in complete sentences, no tracheal deviation and symmetric chest movement Auscultation: clear to auscultation bilaterally Cardio Rate: regular rate GI Inspection: Yes normal to inspection and No distended Palpation (GI): Soft to palpation, not firm, nontender and No hepatosplenomegaly present Auscultation: normal bowel sounds General: Yes no CVA tenderness Back/Spine/Pelvis Back: no CVA tenderness Skin General skin exam: elasticity normal, turgor normal and dry skin Neuro General: oriented to person and oriented to place Psych Appearance: grossly normal Affect: normal affect Assessment & Plan Assessment & Plan (1) Constipation: Code(s): K59.00 - Constipation, unspecified Category: Medical Qualifiers: Constipation type: slow transit constipation Qualified Code(s): K59.01 - Slow transit constipation (2) Diverticulosis: Code(s): K57.90 - Diverticulosis of intestine, part unspecified, without perforation or abscess without bleeding Category: Medical (3) Internal hemorrhoids without complication: Code(s): K64.8 - Other hemorrhoids Plan Continue current bowel management. Increase fluid intake and activity to promote better bowel motility. Patient will return on as-needed basis. Colonoscopy will be due in December of 2026. Patient will return to the office on as needed basis both patient and staff is agreeable to plan of care and verbalizes understanding of instructions. They were given the opportunity to ask questions and all questions answered. Thank you for allowing me to participate in her care Coding Level of Care Code Est Pt Level 3 (95155) Diagnoses Slow transit constipation K59.01 Constipation type: slow transit constipation Diverticulosis K57.90 Internal hemorrhoids without complication K64.8 Time Spent (min) 25 Comment 15 minutes spent with patient and additional 10 minutes spent reviewing her records
[2024-08-17 08:16] VITALS: BP 142/70; PULSE 74; O2SAT 95; BMI 35.2
== END 2024-08-17 08:47 | disposition home or self-care (01) ==
PROVIDERS: PCP Internal Medicine; Visit Provider Nurse Practitioner Family
DX: K59.01 Slow transit constipation (principal); K57.90 Diverticulosis of intestine, part unspecified, without perforation or abscess without bleeding; K64.8 Other hemorrhoids
CPT/HCPCS: 99213

== ENCOUNTER → 2024-08-17 08:12 | Outpatient (BNVA) | payer MEDICARE, MEDICAID, SELFPAY | PROVIDERS: PCP Internal Medicine; Visit Provider Nurse Practitioner Family | DX: K59.01 Slow transit constipation (principal); K57.90 Diverticulosis of intestine, part unspecified, without perforation or abscess without bleeding; K64.8 Other hemorrhoids | CPT/HCPCS: 99212 ==

== ENCOUNTER 2024-10-25 14:29 | Outpatient (AMB) | payer MEDICARE, MEDICAID, SELFPAY ==
--- NOTE | 2024-10-25 15:47 | MHC.OFFWIV ---
Intake Vital Signs 10/25/24 15:49 Height 5 ft 1 in Weight 187 lb BMI 35.3 BP 140/90 H Blood Pressure Location Lt brachial Position Sitting Pulse 64 Pulse Source Pulse Oximeter Pulse Oximetry (%) 98 Oxygen Delivery Method Room Air Intake Visit Reasons: EP-thigh rash Intake Note: Patient here for rash in groin area that has been present for a couple of months. Patient Tobacco Use Status: Tobacco use Unknown Allergies Penicillins [PENICILLINS] Allergy (Unknown, Verified 10/25/24 15:50) UNKNOWN Do you need a note to return to daycare/school/sports/work: No HPI HPI Comments History of Present Illness Details History of Present Illness - The patient is a 69-year-old female presenting with a persistent rash with associated itching and pain. - This skin condition is specifically located on the tibia and was initially noted to recur last week. - She had a similar rash the previous year, presenting over several months, and underwent treatment with nystatin cream which was effective in resolving the problem at that time. - The current skin lesion is symptomatic once again, but the patient is currently not using any cream. - No details regarding factors influencing symptomatology, apart from the effectiveness of prior nystatin cream application. - Patient also complaining of itchy rash on the center of her upper abdomen as well as her right forearm. Physical Exam General: Cooperative, healthy appearing, comfortable, no acute distress and well developed Orientation: Patient oriented x3 Limitations: No limitations Head: Normal to inspection Ears: Hearing grossly normal bilaterally Nose: Normal Nxternal nose present Face and sinus: ormal facial exam Eyes: Appearance normal, both eyes and all related structures Neck: Normal visual inspection and Yes full ROM Respiratory: Normal respiratory effort and able to speak in complete sentences. Clear to auscultation bilaterally Cardiovascular: Regular rate and rhythm. Normal S1 and S2 Skin: 3 cm area of erythema, with a raised dry edges on upper left thigh. Very small cluster of erythematous dry skin on her central upper abdomen and right forearm Neuro: Patient oriented x3 Extremities: Normal to inspection [facility] Medical History Diverticulosis Tubular adenoma of colon Knee pain, left Age-related osteoporosis without current pathological fracture Urinary urgency COVID-19 virus infection Knee pain, bilateral Fatty liver Vitamin D deficiency History of tuberculosis Cataract, right eye B-cell lymphoma Mental and behavioral problem Obesity (BMI 30-39.9) Urinary incontinence Hypercholesterolemia Obstructive sleep apnea Schizophrenia Hypothyroidism Hypertension Surgical History History of cataract surgery Family History Father CVD (cardiovascular disease) Mother CVD (cardiovascular disease) Other Mental health disorder Social History Housing: Apartment Alcohol intake: never Patient Tobacco Use Status: Tobacco use Unknown e-Cigarette/Vaping Use: Never Used Second Hand Smoke Exposure: No service: No Current occupational status: disabled Cognitive needs: Yes Hearing needs: No Vision needs: Yes Review of Systems Const All systems reviewed & are unremarkable except as noted in HPI and below Physical Exam Vital Signs: Last Vital Signs Pulse 64 10/25/24 15:49 BP 140/90 H 10/25/24 15:49 Pulse Ox 98 10/25/24 15:49 Oxygen Delivery Method Room Air 10/25/24 15:49 BMI result Body Mass Index 35.3 Assessment & Plan Assessment & Plan (1) Tinea corporis: Comment: left upper leg/thigh Code(s): B35.4 - Tinea corporis Plan: It appears patient has 2 different issues going on, the rash on her left upper thigh looks fungal while the rash on her abdomen and forearm look like eczema. The treatment plan for the current fungal skin infection on the tibia includes the re-prescription of nystatin cream, which was used with success in the past for similar symptoms. This course of topical treatment is expected to alleviate the rash's associated itching and pain. The patient will be provided a nystatin cream refill, ensuring adherence to the prescribed regimen. Monitoring and potential treatment adjustments may be necessary if the current plan does not produce the desired therapeutic outcome. Filled out longterm paperwork. Patient was informed and verbally consented to the use of an ambient scribe for clinic note documentation during this visit. (2) Eczema: Comment: abdomen and right forearm Code(s): L30.9 - Dermatitis, unspecified Qualifiers: Eczema type: other Qualified Code(s): L30.8 - Other specified dermatitis Plan: The areas on her abdomen and right forearm look like eczema and I have sent a prescription for triamcinolone cream for them to treat her areas with this medication. Medications: Refilled nystatin 1 appl topical BID 60 grams 0RF B35.4 - Tinea corporis triamcinolone acetonide 0.5% apply to anterior neck rash 1 appl topical BID 45 grams 0RF L25.9 - Unspecified contact dermatitis, unspecified cause Coding Level of Care Code Est Pt Level 4 (16164) Diagnoses Tinea corporis B35.4 Other eczema L30.8 Eczema type: other
[2024-10-25 15:49] VITALS: BP 140/90; PULSE 64; O2SAT 98; BMI 35.3
== END 2024-10-25 16:56 | disposition home or self-care (01) ==
PROVIDERS: PCP Internal Medicine; Visit Provider Physician Assistant
DX: B35.4 Tinea corporis (principal); L30.8 Other specified dermatitis

== ENCOUNTER → 2024-10-25 14:29 | Outpatient (BNVA) | payer MEDICARE, MEDICAID, SELFPAY | PROVIDERS: PCP Internal Medicine; Visit Provider Physician Assistant | DX: B35.4 Tinea corporis (principal); L30.8 Other specified dermatitis | CPT/HCPCS: 99212 ==

== ENCOUNTER 2024-12-06 08:05 | Outpatient (REF) | payer MEDICARE, MEDICAID, SELFPAY ==
--- NOTE | ~2024-12-06 | US_ITS ---
CLINICAL HISTORY: N20.0 - Calculus of kidney Exam: Ultrasound of the kidneys. Comparison: Abdominal ultrasound June 23, 2023. Findings: Right kidney measures 11.0 x 5.3 x 4.7 cm in size. The right kidney is of normal echotexture without focal lesion, nephrolithiasis, or hydronephrosis. The area of concern for caliectasis within the right kidney on prior study is no longer identified. Left kidney measures 11.6 x 6.0 x 5.8 cm in size. The left kidney is of normal echotexture without focal lesion, nephrolithiasis, hydronephrosis. Impression: Negative renal ultrasound. This document has been electronically signed by: Yobany Arreguin MD on 12/06/2024 09:48:12
--- OUTSIDE RECORDS SUMMARY | 2024-12-06 08:07 | XMS_ITS | Data Portability ---
Author Organization [place] - [facility] Address [address] [place] [id number] Care Team Providers Care Care Analyst Name Role Phone COREYKURTIS Primary Care Provider [phone] Assessment Encounter Date Assessment Date Assessment LastModified by Organization Details LastModified Time 02/23/2020 02/23/2020 Overview/History : Pt is a 64yo F with PMH sig for CAD, HLD, HTN, LIMA and mild intellectual disablity. [place] [facility] [place]. Staff state pt has been c/o of left ankle pain for awhile and they suspect it is from her leg exercises. They report that they noted a sore to her left heel today. They are also concerned for pink eye to the right eye as it has been red, sore and draining for almost a week. Exam: Pt is A/Ox3, non-toxic appearing, VSS, HRR, resp reg and unlabored on RA, lungs CTA bilat. Right eye noted to have Injection to the conjunctiva. PERRLA, normal mucous membranes, no evidence of foreign objects. Normal range of motion but pt reports discomfort at terminal ends and with palpation of the joint, ambulating well around home without assistive device. No edema noted, good CMS present. Skin was C/D/I DDx considered, but not limited to: Ankle sprain: likely given pt is walking well, no edema, normal CMS, joint is tender Septic Joint: unlikely, no erythema, edema, warmth or severe pain Fracture: unlikely, no edema, ecchymosis, pt able to bear weight and has normal ROM Bacterial Conjuntivitis: likely given the erythema, drainage, and reports of discomfort Corneal Abrasion: unlikely, no reports of injury, vision changes, edgar pain, sensation that something is in the eye. Work up/Results: xray of the ankle pending Plan/Discussion: Advised use of scheduled APAP to help with discomfort, use of heat and ice and refraining from additional excerises at this time of the ankle and just focus on simple ROM. Pt started on antibiotic ointment for concern of bacterial conjuntivitis. Xray of ankle pending for further eval. Patients PCP contacted and updated on patient status. Patient verbalized understanding of discharge instructions and when to follow up with PCP/911/ED as needed. Patient in agreement with current plan and treatment. In order to obtain further information and compare any laboratory results/values, I have accessed old patient records. This information was pertinent in my medical decision making today. Time On Scene with Patient: 00:27:51 violet Not available 02/24/2020 12:59:15 Plan of Treatment Reminders Order Date Submit Date Provider Last Modified By Organization Details Last Modified Time Details Appointments None recorded. Lab None recorded. Referral None recorded. Procedures None recorded. Surgeries None recorded. Imaging XR, ankle, 3 or more view 2019 [email or web address] [facility] ([facility] [employer]), [address] [place] [address], [place], [address], 0 16:36:38 Medication Orders erythromyc in 5 mg/gram (0.5 %) eye ointment 2019 INTERFACE [facility], [address] [place] [address], [id number], 0 15:28:50 Patient TargetsNo targets recorded. Patient Instructions Encounter Date Encounter Id Patient Instructions Last Modified By Organization Details Last Modified Time 02/23/2020 [id number] Thank you for yo ur visit with [facility] today. You do not appear to have a fracture or dislocation that requires immediate surgical intervention. However, small breaks or ligament tears may not be obvious on initial examination. Given this concern, we may have placed you in a temporary splint. If an xray is indicated, we will help direct you to the best option to obtain your imaging study. We have also given you follow up directions. Please follow up with your primary care physician or specialist as directed. Please take Tylenol 650mg every 4 hours while awake at 0800, 1200, 1600, 2000 by mouth for [address] Erythromycin ointment 1cm ribbon in both eyes three times a day at 0800, 1600, 2000 for 7 days In order to meet our goal of providing quality urgent care in your home, your [facility] provider has ordered the following exam to be completed. Xray of the left ankle The company we have partnered with that will be completing the exam listed above is: [employer] While you wait comfortably at home, you can expect a [employer] technologist to call you 30-45 minutes prior to arrival. Should you need to make special scheduling arrangements please call the number listed above and ask to speak with a [employer] dispatcher. For your convenience, you can also request your technologist? s Estimated Time of Arrival (ETA) by calling the number listed above. Once requested, a [employer] dispatcher will call you back to let you know what time frame to expect the technologist to arrive within. Once your x-ray is completed, a radiologist will evaluate the test and interpret the results. Once the final report is received by [facility] from the reading radiologist a [facility] provider will call with the results. If you develop any new or worsening symptoms and need after hours care, please go to nearest ER and/or call 911. If you have additional concerns or develop a change in your condition between 8am-10pm, please call [facility] at [phone] to help navigate your care. Ankle Sprain An ankle sprain happens when one or more ligaments in your ankle joint stretch or tear. Ligaments are tough elastic-like tissues that connect bones. Ligaments support and keep your joints stable. Medicines: Unless you are allergic or have some other contraindication (for example, severe gastric ulcer disease or kidney disease) then you should use Ibuprofen regularly for 3 days. For adults, take 400 mg 3 times per day for 3 days and then STOP. Prolonged use of Ibuprofen can hurt the stomach and kidney. For children, consult weight-based dosing on the bottle. Prescription Pain Medicine: You may have been prescribed a strong opiate pain medicine. Use this for more severe pain. Do not drive, drink alcohol, operate heavy machinery or take other sedating medicines while you are using this medicine. Prescription pain medicines are constipating. While you are using this medicine, you may want to take an vkwl-kqh-fenxnrd stool softener (like Ducosate Sodium) twice per day. Self Care: Activity: if you are able to bear weight with minimal pain, you may go ahead and do so and participate in your regular activities of daily living. However, if it is too painful to bear weight, then you should remain non-weight bearing until you can do so without pain or until you are re-evaluated by your regular MD or orthopedist. Early range of motion is important in recovery. So if you cannot bear weight, you should perform range of motion exercises by ? w riting the alphabet with your big toe.? The Nurse Practitioner (ANNUAL GIVING OFFICER) will show you how to do this. You may use crutches or a walker as needed. Avoid high impact activities such as running. If you are in a job that requires a lot of standing and walking or you are an athlete, you will need to see your MD for clearance prior to resuming these activities. There is no contraindication to working, but you may need to adjust your activities at work. Xrays: You may have been given a prescription for an outpatient xray. Your [facility] Nurse Practitioner will discuss how to obtain results of the xray. Ice: apply cold pack or ice bag 20 minutes every few hours for the first 48 hours for comfort. Use a protective layer such as a pillowcase in between the ice bag and you skin. Compression: The ANNUAL GIVING OFFICER may recommend an aldo wrap for comfort and support for the next 1-2 weeks. Wear the aldo when you are up and moving around. Do not wear it in bed. Elevation: For the first 2-3 days after injury, try to keep ankle elevated above the level of your heart as often as you can. Air-Cast: You may have been given a removable ankle splint called an aircast to help give your ankle stability. Wear this whenever you are up and walking around for the next 2 weeks. You may use an aldo wrap under the aircast and you MAY wear the aircast in bed if you would like. Follow-up: You should make appointment for reevaluation by your regular MD or orthopedic doctor within 7 days. Seek Care Immediately If: 1) The pain gets suddenly worse or is not helped with mafs-wii-kgmvmzi or prescription medications. 2) Your toes become cold, blue or numb 3) If you still cannot tolerate weight bearing one week after injury 4) If the swelling initially goes away and then returns several weeks later. If you develop any new or worsening symptoms and need after hours care, please go to nearest ER and/or call 911. If you have additional concerns or develop a change in your condition between 8am-10pm, please call [facility] at [phone] to help navigate your care. violet Not available 02/23/2020 15:26:46 Reason for Referral None Reported. Results Created Date Observation Date Name Description Value Unit Range Abnormal Flag Note LastModifiedBy Organization Detail LastModifiedTime 02/25/2002/25/2020 ankle compl ete, min 3V ANKLE COMPLE TE, MIN 3V, LEFT FINDIN GS: The ankle mortis e is preser rolando withou t fractu re or disloc ation. There is ankle soft tissue swelli ng. No foreig n body is seen. CONCLU MCKAY: Ankle swelli ng but no fractu re. ELECTR ONICAL LY SIGNED BY LARA ROE M.D. 02/25/20 11:46: 23 AM EDT. ANKLE COMPLE TE, MIN 3V, LEFT Result s: The ankle mortis e is preser rolando withou t fractu re or disloc ation. There is ankle soft tissue swelli ng. No foreig n body is seen. Conclu mckay: Ankle swelli ng but no fractu re. Electr onical ly signed by LARA ROE M.D. 02/25/20 11:46: 23 AM EDT. [id number] [facility] [address] [facility], [place], [address], 02/26/2020 10:17:38 Result Notes None recorded. Problems Name Problem SNOMED Code Status Onset Date Resolution Date Notes Provider Name and Address Organization Details Recorded Time Hyperlipidemi a 16003298 Active 2019 DON DISLA NP [address] [place], [address], [place] - [facility] 0 15:11:59 Problem Notes None recorded. Procedures Surgical History None recorded. Imaging Results Imaging Date Name Status LastModified by Organiz ation Details LastModified Time 02/25/2020 ankle complete, min 3V completed [id number] [facility] [address], [place], [address], 02/26/2020 10:17:38 Procedure Notes None recorded. Medical Equipment None Reported. Allergies Allergen ID Allergen Name Allergen Category Reaction Reaction Severity Criticality Documentation Date Start Date Code Code System Note Provider Name and Address Organization Details Recorded Time 122023 Product containin g penicilli n and antibioti c (product) medicatio n Not available Not available Not available 02/23/2020 38703 05 SNOMED DON DISLA , BESSY [address] [facility] [place], [address], [place] - [facility] 0 15:11:48 Medications Name Sig Start Date Stop Date Status Note LastModified by Organization Details LastModified Time oxybutynin chloride ER 15 mg tablet,exte nded release 24 hr active Not Available Not Available Not Available ketoconazol e 2 % shampoo active Not Available Not Available Not Available divalproex 250 mg tablet,emelyn yed release 02/22 completed Not Available Not Available Not Available atorvastati n 10 mg tablet active Not Available Not Available Not Available divalproex 500 mg tablet,emelyn yed release 02/22 completed Not Available Not Available Not Available levothyroxi ne 100 mcg tablet active Not Available Not Available Not Available erythromyci n 5 mg/gram (0.5 %) eye ointment APPLY 1 CM RIBBON INTO THE LOWER CONJUNCTI SYD SAC(S) IN THE AFFECTED EYE(S) BY OPHTHALMI C ROUTE 3 TIMES PER DAY 2019 active Not Available Not Available Not Avai lable trazodone 150 mg tablet active Not Available Not Available Not Available ammonium lactate 12 % topical cream active Not Available Not Available Not Available lisinopril 40 mg tablet active Not Available Not Available Not Available aripiprazol e 10 mg tablet active Not Available Not Available Not Available Depakote active Not Available Not Avai lable Not Available Bystolic 10 mg tablet active Not Available Not Available No t Available Vitals None Recorded Social History Question Answer Notes LastModified by Organizat ion Details LastModified Time Tobacco Smoking Status Never Smoker DON DISLA NP [address] [place], [address], [place] [facility] 02/23/2020 15:13:57 Do You Have An Advance Directive? Yes Information not available 02/23/2020 What Is Your Code Status? Full Code Information not available 02/23/2020 Excessive Alcohol Or Drug Use No Information not available 02/23/2020 Sex: Unknown Functional Status None recorded. Mental Status None recorded. Family History Nothing Reported Notes:[facility] pt resides at a [facility] home Medical History Condition Response Diabetes N Coronary Artery Disease Y Cancer N Stroke N Depression Y COPD N Asthma N High Cholesterol Y Pulmonary Embolism N Hypertension Y Kidney Disease N Gynecological HistoryNo gynecological history recorded. Obstetrics History GPAL:G 0 P 0 0 0 0 Past Encounters Encounter ID Performer Location Encounter Start Date Encounter Closed Date Diagnosis/Indication Diagnosis SNOMED-CT Code Diagnosis ICD10 Code Diagnosis Note [id number] Yaritza Ordoñez [facility] [address] [place] [address] 02/23/2020 15:07:33 02/25/2020 19:53:05 Pain of left ankle joint [id number] 5050649 M25.572 Bacterial conjunctivitis 703093557 H10.9 Health Concerns Section Related Observation LastModified by Organization Detai ls LastModified Time None Recorded Concern Status LastModified by Organization Details LastModified Time None Recorded Advance Directives Directive Y: Payers Encounter Date Sequence Insurance Name Policy Number Policy Yanez Covered Member ID Yanez Member ID Guarantor Name 02/23/2020 2 [place]: [facility] Shelby Nieevs [id number] Shelby Koch i Notes Date Note Type Note Provider Name and Address Organization Details Recorded Time 02/23/2020 text/html Pt has been c/o pain in her left ankle, today one of the cg at the [facility] home noted some sores on the ankle. States that she has been getting ammonium lactacte cream. Her left eye is also red, staff think it may be from irritation from her ketoconazole shampoo, but want to make sure it isn't pink eye. Pt report some discomfort to the eye as well. DON DISLA NP [address], [place], [address], [place] - [facility] 02/24/2020 12:59:22 OBGyn Episode No OBEpisode recorded.
[2024-12-06 10:30] LABS: Albumin Level 4.1 g/dL (3.5-5.0); Alkaline Phosphatase 45 U/L (39-117); Aspartate Amino Transferase 22 U/L (5-31); Bilirubin Direct 0.1 mg/dL (0.0-0.5); Bilirubin Total 0.4 mg/dL (0.0-1.0); Total Protein 7.2 g/dL (6.5-8.0)
[2024-12-06 10:43] LABS: Alanine Aminotransferase 30 U/L (0-31)
[2024-12-06 11:07] LABS: Valproate 87.3 mcg/mL (50.0-100.0)
== END 2024-12-06 08:06 | disposition home or self-care (01) ==
LOC: HO.US 08:05
PROVIDERS: Absent Provider General Practice; PCP Internal Medicine; Visit Provider Nurse Practitioner Family
DX: N20.0 Calculus of kidney (principal); F25.9 Schizoaffective disorder, unspecified; Z79.899 Other long term (current) drug therapy
CPT/HCPCS: 36415; 76775; 80076; 80164

== ENCOUNTER → 2024-12-06 08:09 | Outpatient (BNV) | payer MEDICARE, MEDICAID, SELFPAY | PROVIDERS: Absent Provider General Practice; PCP Internal Medicine; Visit Provider Radiology Diagnostic Radiology | DX: N20.0 Calculus of kidney (principal) | CPT/HCPCS: 76775 ==

== ENCOUNTER 2024-12-20 08:41 | Outpatient (AMB) | payer MEDICARE, MEDICAID, SELFPAY ==
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
--- OUTSIDE RECORDS SUMMARY | 2024-12-20 09:11 | XMS_ITS | Data Portability ---
Author Organization [place] [facility] Address [address] [place] [id number] Care Team Providers Care A&P Mechanic Name Role Phone COREYKURTIS Primary Care Provider [phone] Assessment Encounter Date Assessment Date Assessment LastModified by Organization Details LastModified Time 02/23/2020 02/23/2020 Overview/History : Pt is a 64yo F with PMH sig for CAD, HLD, HTN, LIMA and mild intellectual disablity. Pt resides at a [facility]. Staff state pt has been c/o of [...] XR, ankle, 3 or more view [email or web address] [facility] ([facility]), [address] [place] [address], [place], [address], 0 16:36:38 Medication Orders erythromyc in 5 mg/gram (0.5 %) eye ointment 2019 INTERFACE [facility], [address] [place] [address], [id number], 0 15:28:50 Patient TargetsNo targets recorded. Patient Instructions Encounter Date Encounter Id Patient Instructions Last Modified By Organization Details Last Modified Time 02/23/2020 [id number] Thank you for yo ur visit with [...] be completing the exam listed above is: [employer] While you wait comfortably at home, you can expect a [employer] technologist to call you 30-45 minutes prior to arrival. Should you need to make special scheduling arrangements please call the number listed above and ask to speak with a [employer] dispatcher. For your convenience, you can also request your technologist? s Estimated Time of Arrival (ETA) by calling the number listed above. Once requested, a [employer] dispatcher will call you back to let you know what time frame to expect the technologist to arrive within. Once your x-ray is completed, a radiologist will evaluate the test and interpret the results. Once the final report is received by [facility] from the reading radiologist a [facility] provider will call with the results. If you develop any new or worsening symptoms and need after hours care, please go to nearest ER and/or call 911. If you have additional concerns or develop a change in your condition between 8am-10pm, please call [facility] at [phone] to help navigate your care. Ankle Sprain [...] medicine, you may want to take an abep-esc-cvcwsfd stool softener (like Ducosate Sodium) twice per [...] with your big toe.? The Nurse Practitioner (INTENSIVE CARE NURSE) will show you how to do this. [...] ice bag and you skin. Compression: The INTENSIVE CARE NURSE may recommend an aldo wrap for comfort [...] suddenly worse or is not helped with pjzm-xib-qysppci or prescription medications. 2) Your toes become [...] condition between 8am-10pm, please call [facility] at [phone] to help navigate your care. violet Not [...] ROE M.D. 02/25/20 11:46: 23 AM EDT. [email or web address] [facility] ([facility]) [address] [facility], [place], [address], 02/26/2020 10:17:38 Result Notes None recorded. Problems Name Problem SNOMED Code Status Onset Date Resolution Date Notes Provider Name and Address Organization Details Recorded Time Hyperlipidemi a 93925129 Active 2019 DON DISLA NP [address] [place], [address], [place] [facility] 0 15:11:59 Problem Notes None recorded. Procedures Surgical History None recorded. Imaging Results Imaging Date Name Status LastModified by Organiz ation Details LastModified Time 02/25/2020 ankle complete, min 3V completed [facility] [address], [place], [address], 02/26/2020 10:17:38 Procedure Notes None recorded. Medical Equipment None Reported. Allergies Allergen ID Allergen Name Allergen Category Reaction Reaction Severity Criticality Documentation Date Start Date Code Code System Note Provider Name and Address Organization Details Recorded Time 598250 Product containin g penicilli n (product) medicatio n Not available Not available Not available 02/23/2020 71142 8001 SNOMED DON DISLA , INTENSIVE CARE NURSE [address] [place], [address], [place] [facility] 0 15:11:48 Medications [...] Time Tobacco Smoking Status Never Smoker DON DISLA, BESSY [address], [place], [address], [place] [facility] 02/23/2020 15:13:57 Do You Have An Advance Directive? Yes Information not available 02/23/2020 What Is Your Code Status? Full Code Information not available 02/23/2020 Excessive Alcohol Or Drug Use No Information not available 02/23/2020 Sex: Unknown Functional Status None recorded. Mental Status None recorded. Family History Nothing Reported Notes:[facility] pt resides at a [facility] Medical History Condition Response Diabetes N Coronary Artery Disease Y High Cholesterol Y Pulmonary Embolism N Cancer N Hypertension Y Stroke N COPD N Depression Y Asthma N Kidney Disease N Gynecological HistoryNo gynecological history recorded. Obstetrics History GPAL:G 0 P 0 0 0 0 Past Encounters Encounter ID Performer Location Encounter Start Date Encounter Closed Date Diagnosis/Indication Diagnosis SNOMED-CT Code Diagnosis ICD10 Code Diagnosis Note [id number] Yaritza Ordoñez [facility] [address] [place] [address] 02/23/2020 15:07:33 02/25/2020 19:53:05 Pain of left ankle joint [id number] M25.572 Bacterial conjunctivitis 620121975 H10.9 Health Concerns Section Related Observation LastModified by Organization Detai ls LastModified Time None Recorded Concern Status LastModified by Organization Details LastModified Time None Recorded Advance Directives Directive Y: Payers Encounter Date Sequence Insurance Name Policy Number Policy Yanez Covered Member ID Yanez Member ID Guarantor Name 02/23/2020 2 [place] [facility] Shelby Nieves [id number] Shelby Koch i Notes Date Note Type Note Provider Name and Address Organization Details Recorded Time 02/23/2020 text/html Pt has been c/o pain in her left ankle, today one of the cg at the [facility] noted some sores on the ankle. States that she has been getting ammonium lactacte cream. Her left eye is also red, staff think it may be from irritation from her ketoconazole shampoo, but want to make sure it isn't pink eye. Pt report some discomfort to the eye as well. DON DISLA, BESSY [address] [place], [address], [place] [facility] 02/24/2020 12:59:22 OBGyn Episode No OBEpisode recorded.
== END 2024-12-20 09:31 | disposition home or self-care (01) ==
PROVIDERS: PCP Internal Medicine; Visit Provider Nurse Practitioner Family
DX: N39.41 Urge incontinence (principal); N32.81 Overactive bladder; Z13.9 Encounter for screening, unspecified
CPT/HCPCS: 99213; G2211

== ENCOUNTER → 2024-12-20 08:41 | Outpatient (BNVA) | payer MEDICARE, MEDICAID, SELFPAY | PROVIDERS: PCP Internal Medicine; Visit Provider Nurse Practitioner Family | DX: N39.41 Urge incontinence (principal); N32.81 Overactive bladder | CPT/HCPCS: 51798; 81003; 99212 ==

== ENCOUNTER 2025-02-21 09:13 | Outpatient (AMB) | payer MEDICARE, MEDICAID, SELFPAY ==
--- NOTE | 2025-02-21 09:16 | A.OFFPC_ITS ---
Vital Signs 3 02/21/25 09:17 02/21/25 10:02 Height 5 ft 1 in Weight 185 lb BMI 35.0 BP 144/90 H 122/76 Blood Pressure Location Lt brachial Lt brachial Position Sitting Sitting Pulse 68 Pulse Source Pulse Oximeter Temp 97.1 F Temp Source Temporal Artery Scan Pulse Oximetry (%) 97 Oxygen Delivery Method Room Air Intake Visit Reasons: OAB, HTN, hypothyroid Glue Spreader Required: Yes Glue Spreader Language: Cape Verdean Accompanied by: Thuy Allergies Penicillins [PENICILLINS] Allergy (Unknown, Verified 02/21/25 09:52) UNKNOWN Medication List - Last Reconciled 02/21/25 by Stephanie Fleming PA-C acetaminophen ER (Tylenol Arthritis Pain) 650 mg PO Q8H 30 days ammonium lactate 12% 1 appl topical BID aripiprazole 10 mg PO DAILY atorvastatin (Lipitor) 20 mg PO BEDTIME benztropine mg PO betamethasone dipropionate 0.05% appl topical cholecalciferol (vitamin D3) 50 mcg PO DAILY [CPAP ] divalproex 250 mg PO QPM divalproex mg PO docusate sodium (Colace) 100 mg PO DAILY ketoconazole 2% 1 appl topical ketoconazole 2% appl topical latanoprost 0.005% 1 drp ophthalmic (eye) levothyroxine 100 mcg PO QAM lisinopril 40 mg PO QAM metoprolol succinate ER 25 mg PO DAILY miconazole nitrate 2% (Zeasorb AF) topical mirabegron ER (Myrbetriq) 50 mg PO DAILY 90 days nystatin 1 appl topical BID sennosides (Natural Senna Laxative) 17.2 mg (2 x 8.6 mg) PO BEDTIME timolol maleate 0.5% drps ophthalmic (eye) tolterodine ER 4 mg PO DAILY trazodone 150 mg PO DAILY triamcinolone acetonide 0.5% 1 appl topical BID Tobacco use date assessed: 02/21/25 Dental Screening Dental Screen Date: 11/17/23 HPI OAB, HTN, hypothyroid 2 HPI0 Details 69-year-old female with past medical his tory of hypertension, hypothyroidism, schizophrenia, obstructive sleep apnea, hypercholesterolemia, parkinsonism last seen by Dr. Rosales 04/2024 coming in for follow up. In review of the notes, patient was seen by Urology 11/2024 for overactive bladder continued on Myrbetriq and fesoterodine follow up in 6 months with PVR. Patient was seen by GI 07/2024 continue on current bowel regimen and follow up as needed. Presenting with skin rash with irritation. She noticed the rash, which is raised and irritated, approximately five months ago. Initial treatment involved creams that have not successfully resolved the issue. There is an absence of itching, and measures have been taken to prevent picking at the rash. The patient is supported in a residential day program setting, with assistance from staff for daily needs. [facility] Medical History Diverticulosis Tubular adenoma of colon Knee pain, left Age-related osteoporosis without current pathological fracture Urinary urgency COVID-19 virus infection Knee pain, bilateral Fatty liver Vitamin D deficiency History of tuberculosis Cataract, right eye B-cell lymphoma Mental and behavioral problem Obesity (BMI 30-39.9) Urinary incontinence Hypercholesterolemia Obstructive sleep apnea Schizophrenia Hypothyroidism Hypertension Surgical History History of cataract surgery Family History Father CVD (cardiovascular disease) Mother CVD (cardiovascular disease) Other Mental health disorder Social History Housing: Apartment Alcohol intake: never Patient Tobacco Use Status: Tobacco use Unknown e-Cigarette/Vaping Use: Never Used Second Hand Smoke Exposure: No service: No Current occupational status: disabled Cognitive needs: Yes Hearing needs: No Vision needs: Yes Questionnaire PHQ-9 Over the last 2 weeks, how often have you been bothered by any of the following problems? 1. Little interest or pleasure in doing things: not at all 2. Feeling down, depressed, or hopeless: not at all 3. Trouble falling or staying asleep, or sleeping too much: several days 4. Feeling tired or having little energy: several days 5. Poor appetite or overeating: not at all 6. Feeling bad about yourself - or that you are a failure or have let yourself or your family down: not at all 7. Trouble concentrating on things, such as reading the newspaper or watching television: not at all 8. Moving or speaking so slowly that other people could have noticed. Or the opposite - being so fidgety or restless that you have been moving around a lot more than usual: not at all 9. Thoughts that you would be better off or of hurting yourself in some way: not at all Total score: 2 16499 - PHQ-9 Billing: Yes Source: Developed by Drs. Luis Roman, Kymebrly Choe, Biju Puente and colleagues, with an educational alex[place] from [employer]. Thrive Questionnaire Date Thrive assessed: 02/21/25 I am a: Patient What is your living situation today?: I have a steady place to live Within the past 12 months, did the food you bought not last and you didn't have the money to get more?: Never true Within the past 12 months, did you worry whether your food would run out before you got money to buy more?: Never true Do you have trouble paying for medicines?: No Do you have trouble getting transportation to medical appointments?: No Do you have trouble paying your heating and electricity bill?: No Do you have trouble taking care of your child, family member or friend?: No Do you have trouble with day-to-day activities such as bathing, preparing meals, shopping, managing finances, etc.?: No Are you currently unemployed and looking for a job?: Yes Are you interested in more education?: No Please select the resources that you would like help with: None Currently or been in a relationship where the following occur: No concerns reported THRIVE Score: 0 AUDIT C Alcohol Use Questionnaire (AUDIT-C) 1. How often do you have a drink containing alcohol?: Never 3. How often do you have six or more drinks on one occasion?: Never Total Score: 0 DIETER-7 AMB Questionnaire DIETER-7 Date DIETER - 7 assessed: 02/21/25 Feeling nervous, anxious, or on edge: 0 = Not at all Not being able to stop or control worryin = Not at all Worrying too much about different things: 1 = Several days Trouble relaxin = Several days Being so restless that it is hard to sit still: 0 = Not at all Becoming easily annoyed or irritable: 1 = Several days Feeling afraid as if something awful might happen: 1 = Several days Total DIETER-7 score (0-4 normal; 5-9 mild; 10-14 moderate; 15-21 severe): 4 Source: Developed by Drs. Luis Roman, Kymberly Choe, Biju Puente and colleagues, with an educational alexandria from [employer]. DIETER-7 Assessment Billing DIETER-7 Assessment Tool: DIETER-7 Assessment 23847 Review of Systems Const Denies body aches, Denies chills, Denies fever(s), Denies headache(s) and Denies poor appetite Eyes Reports no additional complaints ENT Denies dizziness and Denies headache(s) Card Denies chest pain, Denies syncope and Denies dyspnea Resp Denies dyspnea GI Denies nausea and Denies vomiting Reports no additional complaints Musc Reports no additional complaints and Denies abnormal gait Skin/Breast Details: itchy skin lesion of abdomen Reports system reviewed and no additional complaints, except as documented Neuro Denies abnormal gait, Denies dizziness, Denies syncope and Denies headache(s) Psych Reports no additional complaints Physical exam (Primary Care) Vital Signs: Last Vital Signs Temp 97.1 F 02/21/25 09:17 Pulse 68 02/21/25 09:17 BP 144/90 H 02/21/25 09:17 Pulse Ox 97 02/21/25 09:17 Oxygen Delivery Method Room Air 02/21/25 09:17 BMI result Body Mass Index 35.0 Tobacco/Smoking Status: Tobacco use Status Tobacco use date assessed 02/21/25 02/21/25 09:23 Patient Tobacco Use Status Tobacco use Unknown 02/21/25 09:17 e-Cigarette/Vaping Use Never Used 02/21/25 09:17 PHQ-9: PHQ-9 Score PHQ-9: Total score 2 02/21/25 09:24 Thrive Assessment: Date of Thrive Assessment Date Thrive assessed 02/21/25 02/21/25 09:17 Currently or been in a relationship where the following occur: No concerns reported Const General: cooperative, healthy appearing, comfortable and no acute distress Orientation/consciousness: patient oriented x3 HENMT Head: Yes normocephalic Ears: hearing grossly normal bilaterally General nose exam: Normal external nose present Eyes General: appearance normal, both eyes and all related structures Conjunctivae: conjunctivae normal Neck Neck: Yes full ROM and Yes no lymphadenopathy Resp Effort & Inspection: normal respiratory effort Auscultation: clear to auscultation bilaterally, no crackles, no rales, no rhonchi and no wheezes Cardio Rate: regular rate Rhythm: regular rhythm Skin General skin exam: no rashes or lesions noted Full body images: 2 1. Area of raised irritated dry skin lesion 2. Flat dry skin lesion 3. Flat dry skin lesion Neuro General: patient oriented x3 Gait exam (Neuro): Normal gait present Extrem General: Yes normal to inspection, Yes full ROM and No edema Psych Affect: normal affect Attitude: cooperative Insight: Good insight present (Psych) Judgement: Good judgement present (Psych) Coding Level of Care Code Est Pt Level 3 (48015) Diagnoses Urge incontinence N39.41 Obstructive sleep apnea G47.33 Hypercholesterolemia E78.00 Obesity (BMI 30-39.9) E66.9 Essential hypertension I10 Hypertension type: essential hypertension Skin lesion L98.9 Additional Codes DIETER-7 Assessment Billing - DIETER-7 Assessment Tool: DIETER-7 Assessment 71314 ([id number]) PHQ-9 - 43124 - PHQ-9 Billing: Yes ([id number]) Assessment & Plan Assessment & Plan (1) Urge incontinence: Code(s): N39.41 - Urge incontinence Category: Medical Plan: Patient currently following with Urology and continued on current medication regimen. She is due for follow up in 6 months with PVR with Urology. (2) Obstructive sleep apnea: Comment: CPAP Code(s): G47.33 - Obstructive sleep apnea (adult) (pediatric) Category: Medical Plan: Uses CPAP faithfully at least 4 hours a night and benefits from this therapy. (3) Hypercholesterolemia: Code(s): E78.00 - Pure hypercholesterolemia, unspecified Category: Medical Plan: Avoid foods that are high in cholesterol such as red meat, fried foods, eggs and baked goods. Triglyceride goal of less than 150 and LDL goal of less than 130. Continue on atorvastatin. Ordered for updated blood work (4) Obesity (BMI 30-39.9): Code(s): E66.9 - Obesity, unspecified Category: Medical Plan: Healthy diet and regular exercise is encouraged. (5) Hypertension: Code(s): I10 - Essential (primary) hypertension Category: Medical Qualifiers: Hypertension type: essential hypertension Qualified Code(s): I10 - Essential (primary) hypertension Plan: Continue on current blood pressure medication. Avoid salt intake and encourage healthy diet and regular exercise. Blood pressure initially elevated but normalized once patient was able to sit for several minutes. (6) Skin lesion: Code(s): L98.9 - Disorder of the skin and subcutaneous tissue, unspecified Category: Medical Plan: Patient having multiple itchy skin lesions of the abdomen 1 of which is raised. Recommended use ammonium lactate to hydrate the lesions and avoid itching these lesions. Recommend following up with her anatomic pathology manager for further evaluation Plan The patient's current issues will be managed by referring her to dermatology for her skin rash while continuing the use of ammonium lactate cream temporarily. Blood work to assess thyroid function has been ordered in advance of her annual exam with Dr. Smith, and blood pressure medications will continue unchanged as current readings are stable. CPAP use remains essential for her chronic condition, and regular follow-up will help ensure management of her essential hypertension remains adequate. She will follow up in 2 months for her annual exam with Dr. Rosales and plan to review blood work at that time. This note was constructed using voice recognition software. While every effort has been made to ensure accuracy and basket machine operator, still areas may have been included sometimes these areas may affect the content or meeting of the given symptoms. Total time spent caring for the patient today was 20 minutes. This includes time spent before the visit reviewing the chart, time spent during the visit, and time spent after the visit and documentation. Patient was informed and verbally consented to the use of an ambient scribe for clinic note documentation during this visit. Orders: Orders 2 TSH reflex Free T4 Today E03.9 - Hypothyroidism, unspecified, Z00.00 - Encounter for general adult medical examination without abnormal findings Vitamin B12 and Folate Today E66.9 - Obesity, unspecified, Z00.00 - Encounter for general adult medical examination without abnormal findings Complete Blood Count Auto Diff Today E66.9 - Obesity, unspecified, Z00.00 - Encounter for general adult medical examination without abnormal findings Comprehensive Met. Panel Today E66.9 - Obesity, unspecified, Z00.00 - Encounter for general adult medical examination without abnormal findings Free T4 (Free Thyroxine) Today E03.9 - Hypothyroidism, unspecified, Z00.00 - Encounter for general adult medical examination without abnormal findings Lipid Panel Today E78.00 - Pure hypercholesterolemia, unspecified Vitamin D 25-OH Total Today E55.9 - Vitamin D deficiency, unspecified, Z00.00 - Encounter for general adult medical examination without abnormal findings Medications: Refilled 2 levothyroxine 100 mcg PO QAM 90 tabs 3RF E03.9 - Hypothyroidism, unspecified metoprolol succinate ER 25 mg PO DAILY 30 tabs 0RF I10 - Essential (primary) hypertension lisinopril 40 mg PO QAM 90 tabs 1RF I10 - Essential (primary) hypertension atorvastatin (Lipitor) 20 mg PO BEDTIME 30 tabs 1RF docusate sodium (Colace) 100 mg PO DAILY 90 caps 3RF K59.00 - Constipation, unspecified ammonium lactate 12% 1 appl topical BID 400 grams 5RF E66.9 - Obesity, unspecified
[2025-02-21 09:17] VITALS: BP 144/90; PULSE 68; TEMP 36.2; O2SAT 97; BMI 35.0
--- OUTSIDE RECORDS SUMMARY | 2025-02-21 09:58 | XMS_ITS | Data Portability ---
Author Organization [place] - [facility] Address [address] [place] [id number] Care Team Providers Care Label Maker Name Role Phone COREYKURTIS Primary Care Provider Assessment Encounter Date Assessment Date Assessment LastModified by Organization Details LastModified Time 02/23/2020 02/23/2020 Overview/History : Pt is a 64yo F with PMH sig for CAD, HLD, HTN, LIMA and mild intellectual disablity. Pt resides at a nursing home. Staff state pt has been c/o of [...] XR, ankle, 3 or more view 2019 [email or web address] [facility] ([facility]), [address] [place] [address], [place], [address], 0 16:36:38 Medication Orders erythromyc in 5 mg/gram (0.5 %) eye ointment 2019 INTERFACE [facility], [address] [place] [address], [id number], 0 15:28:50 Patient TargetsNo targets recorded. Patient Instructions Encounter Date Encounter Id Patient Instructions Last Modified By Organization Details Last Modified Time 02/23/2020 [id number] Thank you for yo ur visit with [...] be completing the exam listed above is: [facility] While you wait comfortably at home, you can expect a [facility] technologist to call you 30-45 minutes prior to arrival. Should you need to make special scheduling arrangements please call the number listed above and ask to speak with a [facility] dispatcher. For your convenience, you can also request your technologist? s Estimated Time of Arrival (ETA) by calling the number listed above. Once requested, a [facility] dispatcher will call you back to let you know what time frame to expect the technologist to arrive within. Once your x-ray is completed, a radiologist will evaluate the test and interpret the results. Once the final report is received by [facility] from the reading radiologist a [facility] provider will call with the results. If you develop any new or worsening symptoms and need after hours care, please go to nearest ER and/or call 911. If you have additional concerns or develop a change in your condition between 8am-10pm, please call [facility] at [phone] to help navigate your care. Ankle Sprain [...] medicine, you may want to take an xncz-jhi-knfddlb stool softener (like Ducosate Sodium) twice per [...] with your big toe.? The Nurse Practitioner (PUTAWAY DRIVER) will show you how to do this. [...] ice bag and you skin. Compression: The PUTAWAY DRIVER may recommend an aldo wrap for comfort [...] suddenly worse or is not helped with kson-omi-xupisfw or prescription medications. 2) Your toes become [...] condition between 8am-10pm, please call [facility] at [phone] to help navigate your care. violet Not [...] ROE M.D. 02/25/20 11:46: 23 AM EDT. [email or web address] [facility]) [address] [facility] [address], [place], [address], 02/26/2020 10:17:38 Result Notes None recorded. Problems Name Problem SNOMED Code Status Onset Date Resolution Date Notes Provider Name and Address Organization Details Recorded Time Hyperlipidemi a 50995201 Active 2019 DON DISLA NP [address] [place], [address], [place] [facility] 0 15:11:59 Problem Notes None recorded. Procedures Surgical History None recorded. Imaging Results Imaging Date Name Status LastModified by Organiz ation Details LastModified Time 02/25/2020 ankle complete, min 3V completed [id number] [facility] [address], [place], [address], 02/26/2020 10:17:38 Procedure Notes None recorded. Medical Equipment None Reported. Allergies Allergen ID Allergen Name Allergen Category Reaction Reaction Severity Criticality Documentation Date Start Date Code Code System Note Provider Name and Address Organization Details Recorded Time 643598 Product containin g penicilli n (product) medicatio n Not available Not available Not available 02/23/2020 80125 8001 SNOMED DON DISLA , PUTAWAY DRIVER [address] [facility] [place], [address], [place] [facility] 0 15:11:48 Medications [...] Status Never Smoker DON DISLA NP [address], [place], [address], [place] [facility] 02/23/2020 15:13:57 Do You Have An Advance Directive? Yes violet Information not available 02/23/2020 What Is Your Code Status? Full Code Information not available 02/23/2020 Excessive Alcohol Or Drug Use No Information not available 02/23/2020 Sex: Unknown Functional Status None recorded. Mental Status None recorded. Family History Nothing Reported Notes:[facility] pt resides at a [facility] home Medical History Condition Response Coronary Artery Disease Y COPD N Depression Y Cancer N Stroke N High Cholesterol Y Kidney Disease N Diabetes N Asthma N Pulmonary Embolism N Hypertension Y Gynecological HistoryNo gynecological history recorded. Obstetrics History GPAL:G 0 P 0 0 0 0 Past Encounters Encounter ID Performer Location Encounter Start Date Encounter Closed Date Diagnosis/Indication Diagnosis SNOMED-CT Code Diagnosis ICD10 Code Diagnosis Note [id number] DON DISLA NP [facility] [address] [place] [address] 02/23/2020 15:07:33 02/25/2020 19:53:05 Pain of left ankle joint 1192750744 9926168 M25.572 Bacterial conjunctivitis 604725183 H10.9 Health Concerns Section Related Observation LastModified by Organization Detai ls LastModified Time None Recorded Concern Status LastModified by Organization Details LastModified Time None Recorded Advance Directives Directive Y: Payers Encounter Date Sequence Insurance Name Policy Number Policy Yanez Covered Member ID Yanez Member ID Guarantor Name 02/23/2020 2 [place] [facility] Shelby Nieves [id number] Shelby Koch i Notes Date Note Type Note Provider Name and Address Organization Details Recorded Time 02/23/2020 text/html Pt has been c/o pain in her left ankle, today one of the cg at the [facility] home noted some sores on the ankle. States that she has been getting ammonium lactacte cream. Her left eye is also red, staff think it may be from irritation from her ketoconazole shampoo, but want to make sure it isn't pink eye. Pt report some discomfort to the eye as well. DON DISLA NP [address], [place], [address], [place] - [facility] 02/24/2020 12:59:22 OBGyn Episode No OBEpisode recorded.
--- OUTSIDE RECORDS SUMMARY | 2025-02-21 09:58 | XMS_ITS | Clinical Summary ---
Author Organization 175 [facility] Address [address] [place] [address] Phone Care Team Providers Care Basic Sciences Professor Name Role Phone Barbara Rosales MD Primary Care Provider [phone] Social History Tobacco Use Types Packs/Day Years Used Date Smoking Tobacco: Never Assessed Comments Unknown Sex and Gender Information Value Date Recorded Sex Assigned at Not on file Legal Sex Female 1:15 AM EST Gender Identity Not on file Sexual Orientation Not on file Plan of Treatment Upcoming Encounters Date Type Department Care Team ([facility] st Contact Info) Description 03/20/2025 8:30 AM EDT Consult Orthopedic Surgery - [place] [address] [address] Davin Leiva, DPM [address] [address] Health Maintenance Due Date Last Done Comments Breast Cancer Screening 1955 DTaP,Tdap,and Td Vaccines (1 - Tdap) 02/29/1976 Pneumococcal Vaccine: 50+ Ye ars (1 of 1 - PCV) 2007 Zoster Vaccines (1 of 2) 2007 COVID-19 Vaccine ( - 2023-2 5 season) 2024 Colorectal Cancer Screening: Colonoscopy 01/04/2025 Depression Screening 01/04/2025 Falls Risk Assessment 01/04/2025 Hepatitis C Screening 01/04/2025 Medicare Annual Wellness Visit 01/04/2025 Osteoporosis Screening (Bone Density Screening) 01/04/2025 Social Influencers of Health Screening 01/04/2025 Influenza Vaccine (Season Ended) 2025 RSV Immunization Adult Patie nts (1 - 1-dose 75+ series) 02/29/2032 HIB Vaccines Aged Out No longer eligi ble based on patient's age to complete this topic HPV Vaccines Aged Out No longer eligi ble based on patient's age to complete this topic Hepatitis A Vaccines Aged Out No long er eligible based on patient's age to complete this topic Hepatitis B Vaccines Aged Out No long er eligible based on patient's age to complete this topic IPV Vaccines Aged Out No longer eligi ble based on patient's age to complete this topic MMR Vaccines Aged Out No longer eligi ble based on patient's age to complete this topic Meningococcal ACWY Vaccine Aged Out N o longer eligible based on patient's age to complete this topic Meningococcal B Vaccine Aged Out No l onger eligible based on patient's age to complete this topic RSV Immunization Patients Un shamika 20 months Aged Out No longer eligible b ased on patient's age to complete this topic Varicella Vaccines Aged Out No longer eligible based on patient's age to complete this [place] [address] MEDICARE MEDICAID - [place] Care Teams Basic Sciences Professor Relationship Specialty Start Date End Date Barbara Rosales MD [address] [place] [address] Dr [address] [facility] [place] [address] PCP - General Internal Medicine 01/04/25
[2025-02-21 10:02] VITALS: BP 122/76
== END 2025-02-21 10:08 | disposition home or self-care (01) ==
LOC: HO.HMCH 09:14
PROVIDERS: PCP Internal Medicine
DX: N39.41 Urge incontinence (principal); G47.33 Obstructive sleep apnea (adult) (pediatric); E66.9 Obesity, unspecified; Z68.35 Body mass index [BMI] 35.0-35.9, adult; E78.00 Pure hypercholesterolemia, unspecified; I10 Essential (primary) hypertension; L98.9 Disorder of the skin and subcutaneous tissue, unspecified

== ENCOUNTER → 2025-02-21 09:13 | Outpatient (BNVA) | payer MEDICARE, MEDICAID, SELFPAY | PROVIDERS: PCP Internal Medicine | DX: N39.41 Urge incontinence (principal); G47.33 Obstructive sleep apnea (adult) (pediatric); E78.00 Pure hypercholesterolemia, unspecified; I10 Essential (primary) hypertension; L98.9 Disorder of the skin and subcutaneous tissue, unspecified; E66.9 Obesity, unspecified; Z68.35 Body mass index [BMI] 35.0-35.9, adult; Z71.3 Dietary counseling and surveillance | CPT/HCPCS: 96127; 99212 ==

== ENCOUNTER 2025-03-30 08:28 | Outpatient (REF) | payer MEDICARE, MEDICAID, SELFPAY ==
--- OUTSIDE RECORDS SUMMARY | 2025-03-30 08:32 | XMS_ITS | Data Portability ---
Author Organization [place] [facility] Address [address] [place] [phone] Care Team Providers Care Salvage Clerk Name Role Phone KURTIS NICOLE Primary Care Provider Assessment Encounter Date Assessment Date Assessment LastModified by Organization Details LastModified Time 02/23/2020 02/23/2020 Overview/History : Pt is a 64yo F with PMH sig for CAD, HLD, HTN, LIMA and mild intellectual disablity. Pt resides at a half-way. Staff state pt has been c/o of [...] XR, ankle, 3 or more view 2019 [email or web address] [facility] ([facility]), [address] [place] [address], [place], [address], 0 16:36:38 Medication Orders erythromyc in 5 mg/gram (0.5 %) eye ointment 2019 INTERFACE [facility], [address] [place] [address], [id number], 0 15:28:50 Patient TargetsNo targets recorded. Patient Instructions Encounter Date Encounter Id Patient Instructions Last Modified By Organization Details Last Modified Time 02/23/2020 [id number] Thank you for yo ur visit with [...] be completing the exam listed above is: [employer] While you wait comfortably at home, you can expect a [employer] technologist to call you 30-45 minutes prior to arrival. Should you need to make special scheduling arrangements please call the number listed above and ask to speak with a [employer] dispatcher. For your convenience, you can also request your technologist? s Estimated Time of Arrival (ETA) by calling the number listed above. Once requested, a [employer] dispatcher will call you back to let you know what time frame to expect the technologist to arrive within. Once your x-ray is completed, a radiologist will evaluate the test and interpret the results. Once the final report is received by [facility] from the reading radiologist a [facility] provider will call with the results. If you develop any new or worsening symptoms and need after hours care, please go to nearest ER and/or call 911. If you have additional concerns or develop a change in your condition between 8am-10pm, please call [facility] at [phone] to help navigate your care. Ankle Sprain [...] medicine, you may want to take an ubqz-fee-ynpcyfe stool softener (like Ducosate Sodium) twice per [...] with your big toe.? The Nurse Practitioner (LUG BREAKER AND WIRE PULLER) will show you how to do this. [...] ice bag and you skin. Compression: The LUG BREAKER AND WIRE PULLER may recommend an aldo wrap for comfort [...] suddenly worse or is not helped with zyaa-msu-ymdyqel or prescription medications. 2) Your toes become [...] condition between 8am-10pm, please call [facility] at [phone] to help navigate your care. violet Not [...] ROE M.D. 02/25/20 11:46: 23 AM EDT. [email or web address] [facility] ([facility]) [address] [facility], [place], [address], 02/26/2020 10:17:38 Result Notes None recorded. Problems Name Problem SNOMED Code Status Onset Date Resolution Date Notes Provider Name and Address Organization Details Recorded Time Hyperlipidemi a 99653624 Active 2019 DON DISLA NP [address] [facility] [place], [address], [place] [facility] 0 15:11:59 Problem Notes None recorded. Medical Equipment None Reported. Allergies Allergen ID Allergen Name Allergen Category Reaction Reaction Severity Criticality Documentation Date Start Date Code Code System Note Provider Name and Address Organization Details Recorded Time 288078 Product containin g penicilli n (product) medicatio n Not available Not available Not available 02/23/2020 34073 8001 SNOMED DON DISLA , LUG BREAKER AND WIRE PULLER [address], [place], [address], [place] [facility] 0 15:11:48 Medications Name Sig Start Date [...] Time Tobacco Smoking Status Never Smoker DON DSILA NP [address], [place], [address], [place] [facility] 02/23/2020 15:13:57 Do You Have An Advance Directive? Yes Information not available 02/23/2020 What Is Your Code Status? Full Code Information not available 02/23/2020 Excessive Alcohol Or Drug Use No [email or web address] Information not available 02/23/2020 Sex: Unknown Functional Status None recorded. Mental Status None recorded. Family History Nothing Reported Notes:unk fm pt resides at a [facility] home Medical History Condition Response Coronary Artery Disease Y COPD N Depression Y Diabetes N Cancer N Stroke N Asthma N High Cholesterol Y Pulmonary Embolism N Hypertension Y Kidney Disease N Gynecological HistoryNo gynecological history recorded. Obstetrics History GPAL:G 0 P 0 0 0 0 Past Encounters Encounter ID Performer Location Encounter Start Date Encounter Closed Date Diagnosis/Indication Diagnosis SNOMED-CT Code Diagnosis ICD10 Code Diagnosis Note [id number] DON DISLA NP [facility] [address] [facility] [place] [address] 02/23/2020 15:07:33 02/25/2020 19:53:05 Pain of left ankle joint 7978161610 4990039 M25.572 Bacterial conjunctivitis 802416737 H10.9 Health Concerns Section Related Observation LastModified by Organization Detai ls LastModified Time None Recorded Concern Status LastModified by Organization Details LastModified Time None Recorded Advance Directives Directive Y: Payers Insurance Date Sequence Insurance Name Policy Number Policy Yanez Covered Member ID Yanez Member ID Guarantor Name 02/23/2020 1 *SELF PAY* Shelby Nieves [id number] Shelby Nieves-Kayoder i 07/07/2020 2 [place] [facility] Shelby Lizbeth [id number] Shelby Nieves-Rodr i 03/04/2021 2 [place] Shelby Zhang [id number] Shelby Nieves-Rodr i 07/21/2020 2 [place] Shelby Nieves [id number] Shelby Nieves-Rodr i 07/07/2020 1 [place] Shelby Nieves [id number] Shelby Nieves-Rodr i 07/07/2020 2 [place] Shelby Nieves [id number] Shelby Nieves-Rodr i 06/15/2021 1 [place] [employer] Shelby Koch i [id number] Shelby Nieves-Rodr i Notes Date Note Type Note Provider Name and Address Organization Details Recorded Time 02/23/2020 text/html Pt has been c/o pain in her left ankle, today one of the cg at the [facility] home noted some sores on the ankle. States that she has been getting ammonium lactacte cream. Her left eye is also red, staff think it may be from irritation from her ketoconazole shampoo, but want to make sure it isn't pink eye. Pt report some discomfort to the eye as well. DON DISLA, BESSY [address], [place], [address], [place] [facility] 02/24/2020 12:59:22 OBGyn Episode No OBEpisode recorded.
[2025-03-30 08:49] LABS: MANUAL DIFF FLAG NO
[2025-03-30 09:37] LABS: Basophils Percent Auto 0.8 % (0-2); Eosinophils Absolute Auto 0.1 X10*3/uL (0.0-0.4); Eosinophils Percent Auto 2.3 % (0-4); Hematocrit 40.5 % (37.0-47.0); Hemoglobin 13.7 g/dl (12.0-16.0); Imm Gran Abs Auto 0.03 X10*3/uL (0.00-0.03); Imm Gran Pct Auto 0.6 % (0.0-0.4); Lymphocytes Absolute Auto 1.8 X10*3/uL (1.2-4.9); Mean Corpuscular HGB Conc 33.8 g/dl (31.0-35.0); Mean Corpuscular Hemoglobin 32.5 pg (27.0-33.0); Mean Platelet Volume 10.5 fL (9.4-12.3); Monocytes Absolute Auto 0.6 X10*3/uL (0.1-1.2); Monocytes Percent Auto 12.6 % (2-11); Neutrophils Absolute Auto 2.2 x10*3/uL (2.0-8.3); Neutrophils Percent Auto 46.7 % (45-73); Platelet Count 207 X10*3/uL (160-400); Red Blood Count 4.22 X10*6/uL (4.20-5.50); Red Cell Distribution Width 12.9 % (11.0-16.0); White Blood Count 4.8 X10*3/uL (4.8-10.8)
[2025-03-30 10:10] LABS: Alanine Aminotransferase 24 U/L (0-31); Albumin Level 4.2 g/dL (3.5-5.0); Alkaline Phosphatase 42 U/L (39-117); Anion Gap 10 (12-20); Aspartate Amino Transferase 21 U/L (5-31); Bilirubin Total 0.3 mg/dL (0.0-1.0); Blood Urea Nitrogen 15 mg/dL (9-16); Calcium 9.5 mg/dL (8.4-10.2); Carbon Dioxide 30 mmol/L (22-29); Chloride 105 mmol/L (96-108); Cholesterol 201 mg/dL (<200); Estimated Glomerular Filt Rate > 60; Glucose Random 88 mg/dL (60-115); HDL Cholesterol 52 mg/dL (>40); LDL Cholesterol Calculated 123 mg/dL (<100); Potassium 4.7 mmol/L (3.3-5.1); Sodium 140 mmol/L (135-145); Total Protein 6.9 g/dL (6.5-8.0); Triglycerides 132 mg/dL (<150)
[2025-03-30 10:29] LABS: Free T4 (Free Thyroxine) 1.09 ng/dL (0.71-1.85); TSH reflex Free T4 1.82 uIU/mL (0.32-4.0); Vitamin D 25-OH Total 52.1 ng/mL (>30)
[2025-03-30 10:33] LABS: Vitamin B12 780 pg/mL (200-900)
== END 2025-03-30 08:29 | disposition home or self-care (01) ==
LOC: HO.LAB 08:28
DX: Z00.00 Encounter for general adult medical examination without abnormal findings (principal); E78.00 Pure hypercholesterolemia, unspecified; E03.9 Hypothyroidism, unspecified; E66.9 Obesity, unspecified; E55.9 Vitamin D deficiency, unspecified
CPT/HCPCS: 36415; 80053; 80061; 82306; 82607; 82746; 84439; 84443; 85025

== ENCOUNTER 2025-05-06 08:03 | Outpatient (REF) | payer MEDICARE, MEDICAID, SELFPAY ==
--- OUTSIDE RECORDS SUMMARY | 2025-05-06 08:07 | XMS_ITS | Data Portability ---
Author Organization [place] [facility] Address [address] [place] [phone] Care Team Providers Care Scholarship Counselor Name Role Phone COREYKURTIS Primary Care Provider [...] XR, ankle, 3 or more view 2019 [facility] ([facility]), [address] [place] [address], [place], [address], 0 16:36:38 Medication Orders erythromyc in 5 mg/gram (0.5 %) eye ointment 2019 020 INTERFACE [facility], [address] [place] [address], [id number], 0 15:28:50 Patient TargetsNo targets recorded. Patient Instructions Encounter Date Encounter Id Patient Instructions Last Modified By Organization Details Last Modified Time 02/23/2020 [id number] Thank you for yo ur visit with [facility] today. You do not appear to have [...] be completing the exam listed above is: [employer] While you wait comfortably at home, you can expect a [employer] technologist to call you 30-45 minutes prior to arrival. Should you need to make special scheduling arrangements please call the number listed above and ask to speak with a [employer] dispatcher. For your convenience, you can also request your technologist s Estimated Time of Arrival (ETA) by calling the number listed above. Once requested, a [employer] dispatcher will call you back to let you know what time frame to expect the technologist to arrive within. Once your x-ray is completed, a radiologist will evaluate the test and interpret the results. [facility] from the reading radiologist a [facility] provider will call with the results. If you develop any new or worsening symptoms and need after hours care, please go to nearest ER and/or call 911. If you have additional concerns or develop a change in your condition between 8am-10pm, please [facility] at [phone] to help navigate your care. Ankle Sprain [...] medicine, you may want to take an bvds-rem-xnfepjh stool softener (like Ducosate Sodium) twice per [...] should perform range of motion exercises by writing the alphabet with your big toe. The Nurse Practitioner (HOT AIR FURNACE INSTALLER REPAIRER) will show you how to do this. [...] ice bag and you skin. Compression: The HOT AIR FURNACE INSTALLER REPAIRER may recommend an aldo wrap for comfort [...] suddenly worse or is not helped with fxgn-jff-gbffzmf or prescription medications. 2) Your toes become [...] condition between 8am-10pm, please call [facility] at [phone] to help navigate your care. violet Not [...] ROE M.D. 02/25/20 11:46: 23 AM EDT. [facility] ([facility]) [address] [facility], [place], [address], 02/26/2020 10:17:38 Result Notes None recorded. Problems Name Problem SNOMED Code Status Onset Date Resolution Date Notes Provider Name and Address Organization Details Recorded Time Hyperlipidemi a 74638820 Active 2019 DON DISLA NP [address] [facility] [place], [address], [place] [facility] 0 15:11:59 Problem Notes None recorded. Medical Equipment None Reported. Allergies Allergen ID Allergen Name Allergen Category Reaction Reaction Severity Criticality Documentation Date Start Date Code Code System Note Provider Name and Address Organization Details Recorded Time 778000 Product containin g penicilli n (product) medicatio n Not available Not available Not available 02/23/2020 45121 8001 SNOMED DON DISLA , BESSY [address], [place], [address], [place] [facility] 0 15:11:48 Medications Name Sig Start Date [...] Status Never Smoker DON DISLA, BESSY [address], [place], [address], [place] [facility] 02/23/2020 15:13:57 Do You Have An Advance Directive? Yes Information not available 02/23/2020 What Is Your Code Status? Full Code Information not available 02/23/2020 Excessive Alcohol Or Drug Use No Information not available 02/23/2020 Sex: Unknown Functional Status None recorded. Mental Status None recorded. Family History Nothing Reported Notes:unk [facility]mh pt resides at a [facility] home Medical History Condition Response Diabetes N Coronary Artery Disease Y High Cholesterol Y Cancer N Pulmonary Embolism N Stroke N Hypertension Y Depression Y COPD N Asthma N Kidney Disease N Gynecological HistoryNo gynecological history recorded. Obstetrics History GPAL:G 0 P 0 0 0 0 Past Encounters Encounter ID Performer Location Encounter Start Date Encounter Closed Date Diagnosis/Indication Diagnosis SNOMED-CT Code Diagnosis ICD10 Code Diagnosis Note [id number] DON DISLA NP [facility] [address] [place] [address] 02/23/2020 15:07:33 02/25/2020 19:53:05 Pain of left ankle joint 2341440278 1931002 M25.572 Bacterial conjunctivitis 649496610 H10.9 Health Concerns Section Related Observation LastModified by Organization Detai ls LastModified Time None Recorded Concern Status LastModified by Organization Details LastModified Time None Recorded Advance Directives Directive Y: Payers Insurance Date Sequence Insurance Name Policy Number Policy Yanez Covered Member ID Yanez Member ID Guarantor Name 02/23/2020 1 *SELF PAY* Shelby Nieves [id number] Shelby Koch i 07/07/2020 2 [place] [facility] Shelby Lizbeth [id number] Shelby Dugganr i 03/04/2021 2 [place] [facility] Shelby Lizbeth Zhang [id number] Shelby Koch i 07/21/2020 2 [place] [facility] Shelby Nieves [id number] Shelby Dugganr i 07/07/2020 1 [place] Shelby Lizbeth [id number] Shelby Dugganr i 07/07/2020 2 [place] [facility] Shelby Nieves [id number] Shelby Koch i 06/15/2021 1 MEDICARE B-[place]: [facility] [employer] Shelby Koch i [id number] Shelby Koch i Notes Date Note Type Note Provider Name and Address Organization Details Recorded Time 02/23/2020 text/html Pt has been c/o pain in her left ankle, today one of the cg at the [facility] home noted some sores on the ankle. States that she has been getting ammonium lactacte cream. Her left eye is also red, staff think it may be from irritation from her ketoconazole shampoo, but want to make sure it isn't pink eye. Pt report some discomfort to the eye as well. DON DISLA, HOT AIR FURNACE INSTALLER REPAIRER [address], [place], [address], [place] [facility] 02/24/2020 12:59:22 OBGyn Episode No OBEpisode recorded.
--- OUTSIDE RECORDS SUMMARY | 2025-05-06 08:07 | XMS_ITS | Patient Health Record ---
Author Organization [facility] Address [address] [place] [address] Care Team Providers Care Saw Edge Fuser Circular Name Role Phone Barbara Rosales MD Primary Care Provider Luis Arellano [phone] Allergies Allergen (clinical drug ingredient) Drug/Non Drug Allergy documented on EMR Reaction Allergy Type Onset Date Status Penicillin Unknown Drug Allergy Active Reason For Referral No Information Medications Medication SIG (Take, Route, Frequency, Duration) Notes Start Date End Date Status Robitussin DM 100-10 MG/5ML 10 ml as nee ded Orally every 4 hrs Active Tylenol 1 tab Oral Active Triple Antibiotic/Lidocaine Active Dulcolax (colon prep) 5 MG take at 3:00 p.m and 7:00p.m. Orally two tablets twice a day for one day for 1 day 09/16/2019 Active MiraLax (colon prep) 8.3 ounce ((238) grams mixed with Gatorade or Crystal Light orally begin at 5:00 p.m. the day before the procedure for 1 day 09/16/2019 Active Multi Vitamin/Minerals Orally Active Atorvastatin Calcium 10 MG 1 tablet Oral ly Once a day for 30 day(s) Active Depakote 500 MG 1 tablet Orally Once a day Active oxyBUTYnin Chloride 5 MG Orally Active Zestril 40 MG 1 tablet Orally Once a day Active Levoxyl Active Bystolic 5 MG 1 tablet Orally Once a day Active Calcium + D 600-200 MG-UNIT 1 tablet wit h food Orally Once a day Active traZODone HCl 150 MG 1 tablet at bedtime Orally Once a day Active Desonide 0.05 % 1 application to aff ected area Externally Twice a day Active Abilify 5 MG 1 tablet Orally Once a day Active Colace 100 MG 1 capsule as needed Orally Once a day Active Immunizations Vaccine Route Administration Date Status Comme nts Influenza Unknown 06/24/2019 Administered Problems Problem Type SNOMED Code ICD Code Onset Dates Problem Status W/U Status Risk Notes Problem 227665127 Encounter for screening for malignant neoplasm of colon (Z12.11) Active confirmed Problem 611213225 Hx of adenomatous colonic polyps (Z86.010) Active confirmed Plan Of Treatment Pending Test Test Name Order Date GI BIOPSY 11/30/2019 Future Test Test Name Order Date COLONOSCOPY 06/13/2014 COLONOSCOPY 09/14/2019 Insurance Providers Payer Name Payer Address Payer Phone Subscriber Number Group Number Insured Name Patient Relationship to Insured Coverage Start Date Coverage End Date MEDICARE OF [place] [address] [place] [address] [id number] HOMERO SKELTON Self - patient is the insured MEDICAID OF [facility] [address] [place] [address] [id number] HOMERO SKELTON Self - patient is the insured Medical (General) History Medical History History ICD Code Colonoscopy, 12/2008---hyperp lastic polyp and a tubular adenoma, diverticulosis, and internal hemorrhoids Schizophrenia Hypothyroidism Hypertension Hyperlipidemia Anxiety Depression Denies MD,DM,CVA,Lung disease,renal dise ase Sleep apnea--uses CPAP Urinary incontinence Neg. colonoscopy in 07/2014 Surgical History Surgery Date(Month/Year) Eye surgery
--- OUTSIDE RECORDS SUMMARY | 2025-05-06 08:08 | XMS_ITS | Clinical Summary ---
Author Organization [address] [place] [address] Address [address] [place] [address] Phone Care Team Providers Care Airborne Mission Systems Superintendent Name Role Phone Barbara Rosales MD Primary Care Provider [phone] Allergies Active Allergy Reactions Criticality Noted Date Comments Penicillins 03/20/2025 Medications No known medications Encounters Date Type Department Care Team Description 03/20/2025 8:30 AM EDT Consult Orthopedic Surgery [facility] [address] [phone] Davin Leiva DPM Ingrowing nail from Last 3 Months Social History Tobacco Use Types Packs/Day Years Used Date Smoking Tobacco: Never Assessed Comments Unknown Sex and Gender Information Value Date Recorded Sex Assigned at Not on file Legal Sex Female 1:15 AM EST Gender Identity Not on file Sexual Orientation Not on file Last Filed Vital Signs Vital Sign Reading Time Taken Comments Blood Pressure - - Pulse - - Temperature - - Respiratory Rate - - Oxygen Saturation - - Inhaled Oxygen Concentration - - Weight 76.2 kg (168 lb) 03/20/2025 8:35 AM EDT Height 152.4 cm (5') 03/20/2025 8:35 AM EDT Body Mass Index 32.81 03/20/2025 8:35 AM EDT Plan of Treatment Upcoming Encounters Date Type Department Care Team (Late st Contact Info) Description 05/20/2025 9:15 AM EDT Office Visit Orthopedic Surgery [place] [address] [address] Davin Leiva DPM [address] [id number] Health Maintenance Due Date Last Done Comments Breast Cancer Screening 1955 DTaP,Tdap,and Td Vaccines (1 - Tdap) 02/29/1976 Pneumococcal Vaccine: 50+ Ye ars (1 of 1 - PCV) 2007 Zoster Vaccines (1 of 2) 2007 COVID-19 Vaccine (1 - 2023-2 5 season) 2024 Colorectal Cancer Screening: Colonoscopy 01/04/2025 Depression Screening 01/04/2025 Falls Risk Assessment 01/04/2025 Hepatitis C Screening 01/04/2025 Medicare Annual Wellness Visit 01/04/2025 Osteoporosis Screening (Bone Density Screening) 01/04/2025 Social Influencers of Health Screening 01/04/2025 Influenza Vaccine (#1) 2025 RSV Immunization Adult Patie nts (1 [...] patient's age to complete this topic Insurance MEDICARE MEDICAID - [place] Care Teams Airborne Mission Systems Superintendent Relationship Specialty Start Date End Date Barbara Rosales MD [address] [place] [address] [address] [facility] [place] [address] PCP - General Internal Medicine 01/04/25
== END 2025-05-06 08:04 | disposition home or self-care (01) ==
LOC: HO.MAMMO 08:03
PROVIDERS: PCP Internal Medicine; Visit Provider Internal Medicine
DX: Z12.31 Encounter for screening mammogram for malignant neoplasm of breast (principal)
CPT/HCPCS: 77063; 77067

== ENCOUNTER → 2025-05-06 08:15 | Outpatient (BNV) | payer MEDICARE, MEDICAID, SELFPAY | PROVIDERS: PCP Internal Medicine; Visit Provider Internal Medicine | DX: Z12.31 Encounter for screening mammogram for malignant neoplasm of breast (principal) | CPT/HCPCS: 77063; 77067 ==

== ENCOUNTER 2025-05-16 16:02 | Outpatient (AMB) | payer MEDICARE, MEDICAID, SELFPAY ==
[2025-05-16 16:03] VITALS: BP 150/70; PULSE 84; TEMP 36.3; O2SAT 100; BMI 36.3
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
--- OUTSIDE RECORDS SUMMARY | 2025-05-16 16:05 | XMS_ITS | Data Portability ---
Author Organization [place] [facility] Address [address] [place] [id number] Care Team Providers Care Grain Elevator Clerk Name Role Phone COREYKURTIS Primary Care Provider Assessment Encounter Date Assessment Date Assessment LastModified by Organization Details LastModified Time 02/23/2020 02/23/2020 Overview/History : Pt is a 64yo F with PMH sig for CAD, HLD, HTN, LIMA and mild intellectual disablity. Pt resides at a [facility]. Staff state pt has been c/o of [...] XR, ankle, 3 or more view 2019 [email or web address] [facility] ([facility]), [address] [place] [address], [place], [address], 0 16:36:38 Medication Orders erythromyc in 5 mg/gram (0.5 %) eye ointment 2019 020 [facility], [address] [place] [address], [id number], 0 15:28:50 Patient TargetsNo targets recorded. Patient Instructions Encounter Date Encounter Id Patient Instructions Last Modified By Organization Details Last Modified Time 02/23/2020 [id number] Thank you for yo ur visit with [facility] today. You do not appear to have [...] be completing the exam listed above is: [facility] While you wait comfortably at home, you can expect a [employer] technologist to call you 30-45 minutes prior to arrival. Should you need to make special scheduling arrangements please call the number listed above and ask to speak with a [employer] dispatcher. For your convenience, you can also request your technologist s Estimated Time of Arrival (ETA) by calling the number listed above. Once requested, a [facility] dispatcher will call you back to let you know what time frame to expect the technologist to arrive within. Once your x-ray is completed, a radiologist will evaluate the test and interpret the results. Once the final [facility] is [facility] from the reading radiologist a [facility] provider will call with the results. If you develop any new or worsening symptoms and need after hours care, please go to nearest ER and/or call 911. If you have additional concerns or develop a change in your condition between 8am-10pm, please call [facility] at [phone] to help navigate your care. Ankle Sprain [...] medicine, you may want to take an cxla-moq-lovuieu stool softener (like Ducosate Sodium) twice per [...] with your big toe. The Nurse Practitioner (COMMUNITY CENTER WORKER) will show you how to do this. [...] ice bag and you skin. Compression: The COMMUNITY CENTER WORKER may recommend an aldo wrap for comfort [...] suddenly worse or is not helped with iacv-ydp-wmpoiqk or prescription medications. 2) Your toes become [...] condition between 8am-10pm, please call [facility] at [phone] to help navigate your care. violet Not [...] ROE M.D. 02/25/20 11:46: 23 AM EDT. [email or web address] [facility] ([facility]) [address] [facility], [place], [address], 02/26/2020 10:17:38 Result Notes None recorded. Problems Name Problem SNOMED Code Status Onset Date Resolution Date Notes Provider Name and Address Organization Details Recorded Time Hyperlipidemi a 89452330 Active 2019 DON DISLA NP [address] [facility] [place], [address], [place] [facility] 0 15:11:59 Problem Notes None recorded. Medical Equipment None Reported. Allergies Allergen ID Allergen Name Allergen Category Reaction Reaction Severity Criticality Documentation Date Start Date Code Code System Note Provider Name and Address Organization Details Recorded Time 089644 Product containin g penicilli n (product) medicatio n Not available Not available Not available 02/23/2020 87036 8001 SNOMED DON DISLA , BESSY [address], [place], [address], [place] [facility] 0 15:11:48 Medications Name Sig Start Date [...] Smoker DON DISLA, BESSY [address], [place], [address], [place] [facility] 02/23/2020 15:13:57 Do You Have An Advance Directive? Yes Information not available 02/23/2020 What Is Your Code Status? Full Code Information not available 02/23/2020 Excessive Alcohol Or Drug Use No Information not available 02/23/2020 Sex: Unknown Functional Status None recorded. Mental Status None recorded. Family History Nothing Reported Notes:unk [facility] pt resides at a [facility] Medical History Condition Response Diabetes [...] SNOMED-CT Code Diagnosis ICD10 Code Diagnosis Note [id number] DON DISLA NP [facility] [address] [place] [address] 02/23/2020 15:07:33 02/25/2020 19:53:05 Pain of left ankle joint 4088701009 [id number] M25.572 Bacterial conjunctivitis 976712101 H10.9 Health Concerns Section Related Observation LastModified by Organization Detai ls LastModified Time None Recorded Concern Status LastModified by Organization Details LastModified Time None Recorded Advance Directives Directive Y: Payers Insurance Date Sequence Insurance Name Policy Number Policy Yanez Covered Member ID Yanez Member ID Guarantor Name 02/23/2020 1 *SELF PAY* Shelby Nieves [id number] Shelby Koch i 07/07/2020 2 [place] [facility] Shelby Lizbeth [id number] Shelby Dugganr i 03/04/2021 2 [place] [facility] Shelby Lizbeth Zhang [id number] Shelby Koch i 07/21/2020 2 [place] [facility] Shelby Nieves [id number] Shelby Dugganr i 07/07/2020 1 [place] Shelby Lizbeth [id number] Shelby Dugganr i 07/07/2020 2 [place] [facility] Shelby Nieves [id number] Shelby Koch i 06/15/2021 1 MEDICARE B[place] [facility] [employer] Shelby Koch i [id number] Shelby Koch i Notes Date Note Type Note Provider Name and Address Organization Details Recorded Time 02/23/2020 text/html Pt has been c/o pain in her left ankle, today one of the cg at the [facility] noted some sores on the ankle. States that she has been getting ammonium lactacte cream. Her left eye is also red, staff think it may be from irritation from her ketoconazole shampoo, but want to make sure it isn't pink eye. Pt report some discomfort to the eye as well. DON DISLA, COMMUNITY CENTER WORKER [address], [place], [address], [place] [facility] 02/24/2020 12:59:22 OBGyn Episode No OBEpisode recorded.
--- OUTSIDE RECORDS SUMMARY | 2025-05-16 16:05 | XMS_ITS | Clinical Summary ---
Author Organization [address] [place] [address] Address [address] [place] [address] Phone Care Team Providers Care Manager Diabetes Name Role Phone Barbara Rosales MD Primary Care Provider [phone] Allergies Active Allergy Reactions Criticality Noted Date Comments Penicillins 03/20/2025 Medications No known medications Encounters Date Type Department Care Team Description 03/20/2025 8:30 AM EDT Consult Orthopedic Surgery [facility] [address] [phone] Davin Leiva DPM Ingrowing nail from Last [...] 9:15 AM EDT Office Visit Orthopedic Surgery [place] [address] [address] Davin Leiva DPM [address] [id number] Health Maintenance Due Date Last Done Comments Breast Cancer Screening 1955 DTaP,Tdap,and Td Vaccines (1 - Tdap) 02/29/1976 Pneumococcal Vaccine: 50+ Ye ars (1 of 1 - PCV) 2007 Zoster Vaccines (1 of 2) 2007 COVID-19 Vaccine (1 - 2023-2 5 season) 2024 Depression Screening 10/24/2024 Colorectal Cancer Screening: Colonoscopy 01/04/2025 Falls Risk Assessment 01/04/2025 Hepatitis C [...] Insurance MEDICARE MEDICAID - [place] Care Teams Manager Diabetes Relationship Specialty Start Date End Date Barbara Rosales MD [address] [place] [address] Dr [address] [facility] [place] [address] PCP - General Internal Medicine 01/04/25
--- OUTSIDE RECORDS SUMMARY | 2025-05-16 16:05 | XMS_ITS | Patient Health Record ---
Author Organization [facility] Address [address] [place] [address] Care Team Providers Care Expressive Therapist Name Role Phone Barbara Rosales MD Primary Care Provider Luis Arellano [phone] Allergies Allergen (clinical drug ingredient) Drug/Non Drug [...] Problem Status W/U Status Risk Notes Problem [id number] Encounter for screening for malignant neoplasm of colon (Z12.11) Active confirmed Problem [id number] Hx of adenomatous colonic polyps (Z86.010) Active confirmed Plan Of Treatment Pending Test Test Name Order Date GI BIOPSY 11/30/2019 Future Test Test Name Order Date COLONOSCOPY 06/13/2014 COLONOSCOPY 09/14/2019 Insurance Providers Payer Name Payer Address Payer Phone Subscriber Number Group Number Insured Name Patient Relationship to Insured Coverage Start Date Coverage End Date MEDICARE OF [place] [address] [place] [address] [phone] [id number] HOMERO SKELTON Self - patient is the insured MEDICAID OF [facility] [address] [place] [address] [id number] HOMERO SKELTON Self - patient is the insured Medical (General) History Medical History History ICD Code Colonoscopy, 12/2008---hyperp lastic polyp and a tubular adenoma, diverticulosis, and internal hemorrhoids Schizophrenia Hypothyroidism Hypertension Hyperlipidemia Anxiety Depression Denies [place],DM,CVA,Lung disease,renal dise ase Sleep apnea--uses CPAP Urinary incontinence Neg. colonoscopy in 07/2014 Surgical History Surgery Date(Month/Year) Eye surgery
== END 2025-05-16 16:47 | disposition home or self-care (01) ==
LOC: HO.HMCH 16:02
PROVIDERS: PCP Internal Medicine; Visit Provider Internal Medicine
DX: Z00.00 Encounter for general adult medical examination without abnormal findings (principal); G20.A1 Parkinson's disease without dyskinesia, without mention of fluctuations; F20.9 Schizophrenia, unspecified; E66.9 Obesity, unspecified; Z68.36 Body mass index [BMI] 36.0-36.9, adult; G47.33 Obstructive sleep apnea (adult) (pediatric); N32.81 Overactive bladder; E03.9 Hypothyroidism, unspecified; I10 Essential (primary) hypertension; E78.00 Pure hypercholesterolemia, unspecified; B07.9 Viral wart, unspecified

== ENCOUNTER → 2025-05-16 16:02 | Outpatient (BNVA) | payer MEDICARE, MEDICAID, SELFPAY | PROVIDERS: PCP Internal Medicine; Visit Provider Internal Medicine | DX: Z00.00 Encounter for general adult medical examination without abnormal findings (principal); G47.33 Obstructive sleep apnea (adult) (pediatric); G20.C Parkinsonism, unspecified; N32.81 Overactive bladder; E03.9 Hypothyroidism, unspecified; E78.00 Pure hypercholesterolemia, unspecified; F20.9 Schizophrenia, unspecified; B07.9 Viral wart, unspecified; I10 Essential (primary) hypertension; E66.9 Obesity, unspecified; Z71.3 Dietary counseling and surveillance | CPT/HCPCS: 99397 ==

== ENCOUNTER 2025-06-20 07:48 | Outpatient (AMB) | payer MEDICARE, MEDICAID, SELFPAY ==
--- OUTSIDE RECORDS SUMMARY | 2025-06-20 07:51 | XMS_ITS | Clinical Summary ---
Author Organization [address] [place] [address] Address [address] [place] [address] Phone Care Team Providers Care Supportive Employment Case Manager Name Role Phone Barbara Rosales MD Primary Care Provider [phone] Allergies Active Allergy Reactions Criticality Noted Date Comments Penicillins 03/20/2025 Medications No known medications Encounters Date Type Department Care Team Description 05/20/2025 9:15 AM EDT Office Visit Orthopedic [facility] [address] [phone] Davin Leiva DPM Ingrowing nail (Primary Dx) 03/20/2025 8:30 AM EDT Consult Orthopedic [facility] [address] [phone] Davin Leiva DPM Ingrowing nail from Last [...] - - Weight 76.2 kg (168 lb) 05/20/2025 9:27 AM EDT Height 152.4 cm (5') 05/20/2025 9:27 AM EDT Body Mass Index 32.81 05/20/2025 9:27 AM EDT Plan of Treatment Upcoming Encounters Date Type Department Care Team ([facility] st Contact Info) Description 11/20/2025 9:30 AM EST Office Visit Orthopedic [facility] [address] [phone] Davin Leiva DPM [address] [place] [address], [place] [address] Health Maintenance Due Date Last Done Comments [...] Insurance MEDICARE MEDICAID - [place] Care Teams Supportive Employment Case Manager Relationship Specialty Start Date End Date Barbara Rosales MD [address] [place] [address] [address] [facility] [place] [address] PCP - General Internal Medicine 01/04/25
--- OUTSIDE RECORDS SUMMARY | 2025-06-20 07:51 | XMS_ITS | Patient Health Record ---
Author Organization [facility] Address [address] [place] [address] Care Team Providers Care Washer Engineer Helper Name Role Phone Barbara Rosales MD Primary Care Provider Luis Arellano [phone] Allergies Allergen (clinical drug ingredient) Drug/Non Drug [...] Problem Status W/U Status Risk Notes Problem [id number] Encounter for screening for malignant neoplasm of colon (Z12.11) Active confirmed Problem [id number] Hx of adenomatous colonic polyps (Z86.010) Active confirmed Plan Of Treatment Pending Test Test Name Order Date GI BIOPSY 11/30/2019 Future Test Test Name Order Date COLONOSCOPY 06/13/2014 COLONOSCOPY 09/14/2019 Insurance Providers Payer Name Payer Address Payer Phone Subscriber Number Group Number Insured Name Patient Relationship to Insured Coverage Start Date Coverage End Date MEDICARE OF [place] [address] [place] [address] [id number] HOMERO SKELTON Self - patient is the insured MEDICAID OF [facility] [address] [place] [address] [id number] HOMERO SKELTON Self - patient is the insured Medical (General) History Medical History History ICD Code Colonoscopy, 12/2008---hyperp lastic polyp and a tubular adenoma, diverticulosis, and internal hemorrhoids Schizophrenia Hypothyroidism Hypertension Hyperlipidemia Anxiety Depression Denies [place],DM,CVA,Lung disease,renal dise ase Sleep apnea--uses CPAP Urinary incontinence Neg. colonoscopy in 07/2014 Surgical History Surgery Date(Month/Year) Eye surgery
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
== END 2025-06-20 08:27 | disposition home or self-care (01) ==
LOC: HO.HUSH 07:48
PROVIDERS: PCP Internal Medicine; Visit Provider Nurse Practitioner Family
DX: N39.41 Urge incontinence (principal); N32.81 Overactive bladder; Z13.9 Encounter for screening, unspecified
CPT/HCPCS: 99213; G2211

== ENCOUNTER → 2025-06-20 07:48 | Outpatient (BNVA) | payer MEDICARE, MEDICAID, SELFPAY | PROVIDERS: PCP Internal Medicine; Visit Provider Nurse Practitioner Family | DX: N39.41 Urge incontinence (principal); N32.81 Overactive bladder | CPT/HCPCS: 51798; 81003; 99212 ==

== ENCOUNTER → 2025-08-13 07:59 | Outpatient (REF) | payer MEDICARE, MEDICAID, SELFPAY ==
--- OUTSIDE RECORDS SUMMARY | 2025-08-13 08:02 | XMS_ITS | Data Portability ---
Author Organization [place] [facility] Address [address] [place] [address] Care Team Providers Care Repairer Helper Name Role Phone COREYKURTIS Primary Care Provider [...] XR, ankle, 3 or more view 2019 [email or web address] Formerly [facility] ([facility]), [address] [place] [address], [place], [address], 0 16:36:38 Medication Orders erythromyc in 5 mg/gram (0.5 %) eye ointment 2019 020 INTERFACE [facility], [address] [place] [address], [id number], 0 15:28:50 Patient TargetsNo targets recorded. Patient Instructions Encounter Date Encounter Id Patient Instructions Last Modified By Organization Details Last Modified Time 02/23/2020 [id number] Thank you for yo ur visit with [facility] today. You do not appear to have [...] be completing the exam listed above is: [facility] While you wait comfortably at home, you can expect a [employer] technologist to call you 30-45 minutes prior to arrival. Should you need to make special scheduling arrangements please call the number listed above and ask to speak with a [facility] dispatcher. For your convenience, you can also request your technologist s Estimated Time of Arrival (ETA) by calling the number listed above. Once requested, a [facility] dispatcher will call you back to let you know what time frame to expect the technologist to arrive within. Once your x-ray is completed, a radiologist will evaluate the test and interpret the results. Once the final report is received by [facility] from the reading radiologist a [facility] provider will call with the results. If you develop any new or worsening symptoms and need after hours care, please go to nearest ER and/or call 911. If you have additional concerns or develop a change in your condition between 8am-10pm, please call [facility] at [phone] to help navigate your care. Ankle Sprain [...] medicine, you may want to take an fsbn-knb-fiwpdki stool softener (like Ducosate Sodium) twice per [...] should perform range of motion exercises by w riting the alphabet with your big toe. The Nurse Practitioner (SORTER LUMBER STRAIGHTENER) will show you how to do this. [...] ice bag and you skin. Compression: The SORTER LUMBER STRAIGHTENER may recommend an aldo wrap for comfort [...] suddenly worse or is not helped with vrop-xda-hziclhj or prescription medications. 2) Your toes become [...] condition between 8am-10pm, please call [facility] at [phone] to help navigate your care. [email or web address] Not available 02/23/2020 15:26:46 Reason for Referral [...] ROE M.D. 02/25/20 11:46: 23 AM EDT. [email or web address] [facility] [address] [facility], [place], [address], 02/26/2020 10:17:38 Result Notes None recorded. Problems Name Problem SNOMED Code Status Onset Date Resolution Date Notes Provider Name and Address Organization Details Recorded Time Hyperlipidemi a 04796534 Active 2019 ODN DISLA NP [address] [facility] [place], [address], [place] [facility] 0 15:11:59 Problem Notes None recorded. Medical Equipment None Reported. Allergies Allergen ID Allergen Name Allergen Category Reaction Reaction Severity Criticality Documentation Date Start Date Code Code System Note Provider Name and Address Organization Details Recorded Time 607169 Product containin g penicilli n (product) medicatio n Not available Not available Not available 02/23/2020 07448 8001 SNOMED DON DISLA , SORTER LUMBER STRAIGHTENER [address], [place], [address], [place] [facility] 0 15:11:48 Medications Name Sig Start [...] Smoker DON DISLA, BESSY [address], [place], [address], [place] [facility] 02/23/2020 15:13:57 Do You Have An Advance Directive? Yes Information not available 02/23/2020 What Is Your Code Status? Full Code Information not available 02/23/2020 Excessive Alcohol Or Drug Use No Information not available 02/23/2020 Sex: Unknown Functional Status None recorded. Mental Status None recorded. Family History Nothing Reported Notes:unk fm pt resides at a [facility] home Medical History Condition Response Diabetes [...] Diagnosis SNOMED-CT Code Diagnosis ICD10 Code Diagnosis IMO Codes Diagnosis Note [id number] DON DISLA NP [facility] [address] [place] [address] 02/23/2020 15:07:33 02/25/2020 19:53:05 Pain of left ankle joint [id number] 6475927 M25.572 Bacterial conjunctivitis 324443627 H10.9 Health Concerns Section Related Observation LastModified by Organization Detai ls LastModified Time None Recorded Concern Status LastModified by Organization Details LastModified Time None Recorded Advance Directives Directive Y: Payers Insurance Date Sequence Insurance Name Policy Number Policy Yanez Covered Member ID Yanez Member ID Guarantor Name 02/23/2020 1 *SELF PAY* Shelby Nieves [id number] Shelby Koch i 07/07/2020 2 [place] [facility] Shelby Nieves [id number] Shelby Dugganr i 03/04/2021 2 [place] Shelby Zhang [id number] Shelby Nieves-Elsie i 07/21/2020 2 [place] [facility] Shelby Nieves [id number] Shelby Nieves-Rodr i 07/07/2020 1 [place] Shelby Nieves [id number] Shelby Nieves-Rodr i 07/07/2020 2 [place] [facility] Shelby Nieves [id number] Shelby Nieves-Rodr i 06/15/2021 1 [place] B[place] [employer] Shelby Koch i [id number] Shelby Koch i Notes Date Note Type Note Provider Name and Address Organization Details Recorded Time 02/23/2020 text/html Pt has been c/o pain in her left ankle, today one of the cg at the [facility] home noted some sores on the ankle. States that she has been getting ammonium lactacte cream. Her left eye is also red, staff think it may be from irritation from her ketoconazole shampoo, but want to make sure it isn't pink eye. Pt report some discomfort to the eye as well. DON DISLA, BESSY [address] [place], [address], [place] [facility] 02/24/2020 12:59:22 OBGyn Episode No OBEpisode recorded.
--- OUTSIDE RECORDS SUMMARY | 2025-08-13 08:03 | XMS_ITS | Patient Health Record ---
Author Organization [facility] Address [address] [place] [address] Care Team Providers Care Forest Technician Name Role Phone Barbara Rosales MD Primary Care Provider Luis Arellano [phone] Allergies Allergen (clinical drug ingredient) Drug/Non Drug [...] two tablets twice a day for one day; Duration: 1 day 09/16/2019 Active MiraLax (colon prep) 8.3 ounce ((238) grams mixed with Gatorade or Crystal Light orally begin at 5:00 p.m. the day before the procedure; Duration: 1 day 09/16/2019 Active Multi Vitamin/Minerals Orally Active Atorvastatin Calcium 10 MG 1 tablet Oral ly Once a day; Duration: 30 day(s) Active Depakote 500 MG 1 [...] Problem Status W/U Status Risk Notes Problem Screening for malignant neoplasm of colon (139798847) Encounter for screening for malignant neoplasm of colon (Z12.11) Active confirmed Problem History of adenomatous polyp of colon (662443271) Hx of adenomatous colonic polyps (Z86.010) Active confirmed Plan Of Treatment Pending Test Test Name Order Date GI BIOPSY 11/30/2019 Future Test Test Name Order Date COLONOSCOPY 06/13/2014 COLONOSCOPY 09/14/2019 Insurance Providers Payer Name Payer Address Payer Phone Subscriber Number Group Number Insured Name Patient Relationship to Insured Coverage Start Date Coverage End Date MEDICARE OF [place] [address] [place] [address] [id number] HOMERO SKELTON Self - patient is the insured MEDICAID OF [facility] [address] [place] [address] [id number] HOMERO SKELTON Self - patient is the insured Medical (General) History Medical History History ICD Code Colonoscopy, 12/2008---hyperp lastic polyp and a tubular adenoma, diverticulosis, and internal hemorrhoids Schizophrenia Hypothyroidism Hypertension Hyperlipidemia Anxiety Depression Denies [place],DM,CVA,Lung disease,renal dise ase Sleep apnea--uses CPAP Urinary incontinence Neg. colonoscopy in 07/2014 Surgical History Surgery Date(Month/Year) Eye surgery
== END ==
LOC: HO.SL 07:59
PROVIDERS: PCP Internal Medicine; Visit Provider Internal Medicine
DX: G47.33 Obstructive sleep apnea (adult) (pediatric) (principal); R06.83 Snoring; R40.0 Somnolence
CPT/HCPCS: 95806

== ENCOUNTER → 2025-08-13 08:09 | Outpatient (BNV) | payer MEDICARE, MEDICAID, SELFPAY | PROVIDERS: PCP Internal Medicine; Visit Provider Internal Medicine | DX: R06.83 Snoring (principal) | CPT/HCPCS: 95806 ==

== ENCOUNTER 2025-09-06 16:00 | Outpatient (AMB) | payer MEDICARE, MEDICAID, SELFPAY ==
[2025-09-06 16:04] VITALS: BP 150/82; PULSE 85; TEMP 36.8; O2SAT 97; BMI 36.6
--- NOTE | 2025-09-06 16:04 | A.OFFPC_ITS ---
Vital Signs 09/06/25 16:04 Height 5 ft 1 in Weight 193 lb 8 oz BMI 36.6 BP 150/82 H Blood Pressure Location Lt brachial Position Sitting Pulse 85 Pulse Source Pulse Oximeter Temp 98.3 F Temp Source Temporal Artery Scan Pulse Oximetry (%) 97 Oxygen Delivery Method Room Air Intake Visit Reasons: Follow Up Allergies Penicillins (PENICILLINS) Allergy (Unknown, Verified 09/06/25 16:04) UNKNOWN Tobacco use date assessed: 05/16/25 Fall risk assessment: No Falls in past year Last assessed Fall Risk: 09/06/25 Dental Screening Dental Screen Date: 05/16/25 [facility] Medical History Diverticulosis Tubular adenoma of colon Knee pain, left Age-related osteoporosis without current pathological fracture Urinary urgency COVID-19 virus infection Knee pain, bilateral Fatty liver Vitamin D deficiency History of tuberculosis Cataract, right eye B-cell lymphoma Mental and behavioral problem Obesity (BMI 30-39.9) Urinary incontinence Hypercholesterolemia Obstructive sleep apnea Schizophrenia Hypothyroidism Hypertension Surgical History History of cataract surgery Family History Father CVD (cardiovascular disease) Mother CVD (cardiovascular disease) Other Mental health disorder Social History Housing: Apartment Alcohol intake: never Patient Tobacco Use Status: Never used Tobacco Tobacco use type: Cigarette e-Cigarette/Vaping Use: Never Used Second Hand Smoke Exposure: No service: No Current occupational status: disabled Cognitive needs: Yes Hearing needs: No Vision needs: Yes Questionnaire PHQ-9 Over the last 2 weeks, how often have you been bothered by any of the following problems? 1. Little interest or pleasure in doing things: not at all 2. Feeling down, depressed, or hopeless: not at all 3. Trouble falling or staying asleep, or sleeping too much: several days 4. Feeling tired or having little energy: several days 5. Poor appetite or overeating: not at all 6. Feeling bad about yourself - or that you are a failure or have let yourself or your family down: not at all 7. Trouble concentrating on things, such as reading the newspaper or watching television: not at all 8. Moving or speaking so slowly that other people could have noticed. Or the opposite - being so fidgety or restless that you have been moving around a lot more than usual: not at all 9. Thoughts that you would be better off or of hurting yourself in some way: not at all Total score: 2 Source: Developed by Drs. Luis Roman, Kymberly Choe, Biju Puente and colleagues, with an educational laexandria from [email or web address]. Thrive Questionnaire Date Thrive assessed: 02/21/25 I am a: Patient What is your living situation today?: I have a steady place to live Within the past 12 months, did the food you bought not last and you didn't have the money to get more?: Never true Within the past 12 months, did you worry whether your food would run out before you got money to buy more?: Never true Do you have trouble paying for medicines?: No Do you have trouble getting transportation to medical appointments?: No Do you have trouble paying your heating and electricity bill?: No Do you have trouble taking care of your child, family member or friend?: No Do you have trouble with day-to-day activities such as bathing, preparing meals, shopping, managing finances, etc.?: No Are you currently unemployed and looking for a job?: Yes Are you interested in more education?: No Please select the resources that you would like help with: None Currently or been in a relationship where the following occur: No concerns reported THRIVE Score: 0 DIETER-7 AMB Questionnaire DIETER-7 Date DIETER - 7 assessed: 02/21/25 Source: Developed by Drs. Luis Roman, Kymberly Choe, Biju Puente and colleagues, with an educational alexandria from [email or web address]. Physical exam (Primary Care) Vital Signs: Last Vital Signs Temp 98.3 F 09/06/25 16:04 Pulse 85 09/06/25 16:04 BP 150/82 H 09/06/25 16:04 Pulse Ox 97 09/06/25 16:04 Oxygen Delivery Method Room Air 09/06/25 16:04 BMI result Body Mass Index 36.6 Tobacco/Smoking Status: Tobacco use Status Tobacco use date assessed 05/16/25 09/06/25 16:04 Patient Tobacco Use Status Never used Tobacco 09/06/25 16:04 Tobacco use type Cigarette 09/06/25 16:04 e-Cigarette/Vaping Use Never Used 09/06/25 16:04 PHQ-9: PHQ-9 Score PHQ-9: Total score 2 09/06/25 16:15 Thrive Assessment: Date of Thrive Assessment Date Thrive assessed 02/21/25 09/06/25 16:04 Currently or been in a relationship where the following occur: No concerns reported Const General: alert; No acute distress Eyes Conjunctivae: conjunctivae normal Resp Auscultation: clear to auscultation bilaterally Cardio Rate: regular rate Rhythm: regular rhythm GI Inspection: Yes normal to inspection Extrem General: Yes normal to inspection and No edema Coding Level of Care Code Est Pt Level 4 (38362) Complex EM visit Add On G2211 Diagnoses Essential hypertension I10 Hypertension type: essential hypertension Hypercholesterolemia E78.00 Acquired hypothyroidism E03.9 Hypothyroidism type: acquired Obesity (BMI 30-39.9) E66.9 Overactive bladder N32.81 Obstructive sleep apnea G47.33 Assessment & Plan Assessment & Plan (1) Hypertension: Code(s): I10 - Essential (primary) hypertension Category: Medical Qualifiers: Hypertension type: essential hypertension Qualified Code(s): I10 - Essential (primary) hypertension Plan: Continue with blood pressure medication. Decrease salt intake and exercise patient is on lisinopril at 40 mg once a day metoprolol at 50 mg once a day (2) Hypercholesterolemia: Code(s): E78.00 - Pure hypercholesterolemia, unspecified Category: Medical Plan: Avoid fried foods, chicken skin, eggs, butter margarine, pastries and meat. Be it pork or beef they have a lot of cholesterol LDL goal of less than 130 and triglyceride of less than 150 March 2025 last blood work on atorvastatin 20 mg at bedtime (3) Hypothyroidism: Code(s): E03.9 - Hypothyroidism, unspecified Category: Medical Qualifiers: Hypothyroidism type: acquired Qualified Code(s): E03.9 - Hypothyroidism, unspecified Plan: Continue with thyroid medication at 100 mcg once a day (4) Obesity (BMI 30-39.9): Code(s): E66.9 - Obesity, unspecified Category: Medical Plan: Diet and exercise (5) Overactive bladder: Code(s): N32.81 - Overactive bladder Category: Medical Plan: Patient follows up with urology on Myrbetriq and tolterodine (6) Obstructive sleep apnea: Comment: CPAP, July 2025 sleep study normal Code(s): G47.33 - Obstructive sleep apnea (adult) (pediatric) Category: Medical Plan: July 2025 sleep study negative, if the patient has been doing CPAP and comfortable with this then may continue Plan History of Present Illness The patient is a 70-year-old obese female presenting for a follow-up visit for management of multiple chronic conditions. Her medical history is significant for hypertension, hypothyroidism, schizophrenia, hypercholesterolemia, lumbar degenerative disc disease, and overactive bladder. For her overactive bladder, she is followed by urology and takes Myrbetriq and tolterodine, which reportedly keeps her dry. She has also been seen by orthopedics and podiatry. Regarding sleep apnea, she was followed by pulmonary and underwent a recent sleep study which was negative, with an apnea-hypopnea index of 4.9. Despite the negative result, she continues to use her CPAP nightly. Her health maintenance screenings include a colonoscopy in December 2023 and an up-to-date mammogram. Her last bone density test was in July 2022. Immunizations are up to date, including shingles, tetanus, pneumonia, and flu vaccines. Her last blood work in March showed a normal blood count with no anemia, normal electrolytes, good renal and liver function, and normal blood sugar. Her LDL cholesterol was 123 mg/dL, and levels of B12, vitamin D, folic acid, and thyroid hormone were normal. Health Maintenance A referral for a bone density scan will be ordered, though it is not urgent and can be scheduled with her next mammogram. No blood work will be ordered at this visit; it will be deferred until the next follow-up appointment in three months. Social History - Exercise: The patient engages in biking and walking. - Diet: The patient reportedly has a good appetite and eats healthy meals at home, avoiding outside food. Review of Systems - Neurological: Denies migraines. - Genitourinary: Reports being kept dry with current medications for overactive bladder. - Hematologic: Denies anemia, confirmed by normal blood count. - Constitutional: Reports a good appetite. Physical Exam - Vitals: Blood pressure is elevated. Results - Labs (March): - CBC: Normal, no anemia. - CMP: Normal electrolytes, renal function, liver function, and glucose. - Lipid Panel: Good, with an LDL of 123 mg/dL. - Vitamin/Hormone Levels: Normal B12, vitamin D, folic acid, and thyroid levels. - Tests and Diagnostics: - Sleep Study (July): Negative for obstructive sleep apnea with an apnea- hypopnea index (AHI) of 4.9. - Colonoscopy (December 2023): Completed. - Mammogram: Up to date. - Bone Density Scan (July 2022): Completed. Plan Patient was informed and verbally consented to the use of an ambient scribe for clinic note documentation during this visit. 1. Hypertension The patient's blood pressure was found to be high during the visit. As she is already on the maximum dose of lisinopril 40 mg, the plan is to increase her metoprolol dose from 50 mg to 100 mg once daily. The new prescription will be sent to [facility]. The roles of salt in the diet and weight as contributing factors were discussed. A follow-up visit is scheduled in three months to re-evaluate her blood pressure. 2. Hypercholesterolemia The patient's LDL cholesterol is 123 mg/dL, which meets the goal of being less than 130 mg/dL. Will continue atorvastatin 20 mg at bedtime. 3. Hypothyroidism Thyroid hormone levels are normal on her current medication. Will continue thyroid medication 100 mcg once daily. 4. Overactive Bladder The patient is followed by urology and her symptoms are well-controlled with Myrbetriq and tolterodine. Will continue current medications as prescribed. 5. Obstructive Sleep Apnea A recent sleep study was negative for obstructive sleep apnea, with an AHI of 4.9. As the patient is accustomed to using her CPAP machine nightly, she was advised to continue using it for her comfort. Discussion Notes I reviewed the patient's chart and recent test results with her caregiver. I noted that her blood pressure was high, and since she is on the maximum dose of lisinopril, I explained that we would increase her metoprolol dose from 50 mg to 100 mg. We discussed that diet, specifically salt intake, and weight are likely contributing factors to her elevated blood pressure. I also explained the results of her recent sleep study, which was negative for sleep apnea with an AHI of 4.9, but I recommended she continue using her CPAP if she is comfortable with it. I confirmed that her lab work from March was normal, including cholesterol and thyroid levels, and that we would continue her current medications for these conditions. I will provide a non-urgent referral for a b one density scan. I advised a follow-up appointment in about three months, at which time we will also order new blood work. Patient Instructions - Your blood pressure is high, so we are increasing one of your blood pressure medicines, metoprolol, from 50 mg to 100 mg once a day. - Please continue to take this pill in the morning, just at the new, higher dose. - Continue taking all your other medications as prescribed, including lisinopril, atorvastatin (for cholesterol), and your thyroid and bladder medications. - We have sent the new prescription for metoprolol to [facility]. - Although your recent sleep study did not show sleep apnea, you can continue to use your CPAP machine at night since you are used to it. - Try to limit salt in your diet and continue with your regular exercise, such as walking and biking, to help manage your blood pressure. - We will give you a referral for a bone density scan, but this is not urgent. You can schedule it when you have your next mammogram. - You do not need any blood tests today. We will check your labs at your next visit. - Please schedule a follow-up appointment in about 3 months so we can check on your blood pressure. Orders: Orders XR DEXA axial skeleton Today M51.36 - Other intervertebral disc degeneration, lumbar region, M81.0 - Age-related osteoporosis without current pathological fracture Medications: Changed From metoprolol succinate ER 50 mg PO DAILY 30 tabs 3RF I10 - Essential (primary) hypertension To metoprolol succinate ER 100 mg PO DAILY 30 tabs 3RF I10 - Essential (primary) hypertension
--- OUTSIDE RECORDS SUMMARY | 2025-09-07 00:52 | XMS_ITS | Data Portability ---
Author Organization [place] [facility] Address [address] [place] [address] Care Team Providers Care Director Private Name Role Phone COREYKURTIS Primary Care Provider [phone] Assessment Encounter Date Assessment Date Assessment LastModified by Organization Details LastModified Time 02/23/2020 02/23/2020 Overview/History : Pt is a 64yo F with PMH sig for CAD, HLD, HTN, LIMA and mild intellectual disablity. Pt resides at a [facility]. Staff state pt has been c/o of [...] XR, ankle, 3 or more view 2019 [email or web address] [facility] ([facility]), [address] [place] [address], [place], [address], 0 16:36:38 Medication Orders erythromyc in 5 mg/gram (0.5 %) eye ointment 2019 020 INTERFACE [facility], [address] [place] [address], [id number], 0 15:28:50 Patient TargetsNo targets recorded. Patient Instructions Encounter Date Encounter Id Patient Instructions Last Modified By Organization Details Last Modified Time 02/23/2020 [id number] Thank you for yo ur visit with [facility] today. You do not appear to have [...] be completing the exam listed above is: [facility] While you wait comfortably at home, you can expect a [facility] technologist to call you 30-45 minutes prior to arrival. Should you need to make special scheduling arrangements please call the number listed above and ask to speak with a [facility] dispatcher. For your convenience, you can also request your technologist s Estimated Time of Arrival (ETA) by calling the number listed above. Once requested, a [facility] dispatcher will call you back to let you know what time frame to expect the technologist to arrive within. Once your x-ray is completed, a radiologist will evaluate the test and interpret the results. Once the final report is received by [facility] from the reading radiologist a [facility] provider will call with the results. If you develop any new or worsening symptoms and need after hours care, please go to nearest ER and/or call 911. If you have additional concerns or develop a change in your condition between 8am-10pm, please call [facility] at [phone] to help navigate your care. Ankle Sprain [...] medicine, you may want to take an evua-hiv-nlqrfyi stool softener (like Ducosate Sodium) twice per [...] with your big toe. The Nurse Practitioner (TIRE BEADER MAKER) will show you how to do this. [...] ice bag and you skin. Compression: The TIRE BEADER MAKER may recommend an aldo wrap for comfort [...] suddenly worse or is not helped with qwuc-yec-nwmkvfa or prescription medications. 2) Your toes become [...] condition between 8am-10pm, please call [facility] at [phone] to help navigate your care. [email or web address] Not [...] ROE M.D. 02/25/20 11:46: 23 AM EDT. [email or web address] [facility] ([facility]) [address] [facility], [place], [address], 02/26/2020 10:17:38 Result Notes None recorded. Problems Name Problem SNOMED Code Status Onset Date Resolution Date Notes Provider Name and Address Organization Details Recorded Time Hyperlipidemi a 70030887 Active 2019 DON DISLA NP [address] [facility] [place], [address], [place] [facility] 0 15:11:59 Problem Notes None recorded. Medical Equipment None Reported. Allergies Allergen ID Allergen Name Allergen Category Reaction Reaction Severity Criticality Documentation Date Start Date Code Code System Note Provider Name and Address Organization Details Recorded Time 147372 Product containin g penicilli n (product) medicatio n Not available Not available Not available 02/23/2020 [id number] SNOMED DON DISLA , TIRE BEADER MAKER [address], [place], [address], [place] [facility] 0 15:11:48 Medications Name Sig Start [...] Smoker DON DISLA, BESSY [address], [place], [address], [place] [facility] 02/23/2020 15:13:57 Do You Have An Advance Directive? Yes Information not available 02/23/2020 What Is Your Code Status? Full Code Information not available 02/23/2020 Excessive Alcohol Or Drug Use No Information not available 02/23/2020 Sex: Unknown Functional Status None recorded. Mental Status None recorded. Family History Nothing Reported Notes:unk fm pt resides at a [facility] home Medical History Condition Response Diabetes N Coronary Artery Disease Y Cancer N Stroke N Asthma N COPD N Depression Y High Cholesterol Y Pulmonary Embolism N Hypertension Y Kidney Disease N Gynecological HistoryNo gynecological history recorded. Obstetrics History GPAL:G 0 P 0 0 0 0 Past Encounters Encounter ID Performer Location Encounter Start Date Encounter Closed Date Diagnosis/Indication Diagnosis SNOMED-CT Code Diagnosis ICD10 Code Diagnosis IMO Codes Diagnosis Note [id number] DON DISLA NP [facility] [address] [facility] [place] [facility] [place] [address] 02/23/2020 15:07:33 02/25/2020 19:53:05 Pain of left ankle joint [id number] 3300239 M25.572 Bacterial conjunctivitis 611389847 H10.9 Health Concerns Section Related Observation LastModified by Organization Detai ls LastModified Time None Recorded Concern Status LastModified by Organization Details LastModified Time None Recorded Advance Directives Directive Y: Payers Insurance Date Sequence Insurance Name Policy Number Policy Yanez Covered Member ID Yanez Member ID Guarantor Name 02/23/2020 1 *SELF PAY* Shelby Nieves [id number] Shelby Koch i 07/07/2020 2 [place] [facility] Shelby Nieves [id number] Shelby Dugganr i 03/04/2021 2 [place] Shelby Zhang [id number] Shelby Nieves-Elsie i 07/21/2020 2 [place] [facility] Shelby Nieves [id number] Shelby Nieves-Rodr i 07/07/2020 1 [place] Shelby Nieves [id number] Shelby Nieves-Rodr i 07/07/2020 2 [place] [facility] Shelby Nieves [id number] Shelby Nieves-Rodr i 06/15/2021 1 [place] [employer] Shelby Koch i [id number] Shelby Koch i Notes Date Note Type Note Provider Name and Address Organization Details Recorded Time 02/23/2020 text/html Pt has been c/o pain in her left ankle, today one of the cg at the [facility] noted some sores on the ankle. States that she has been getting ammonium lactacte cream. Her left eye is also red, staff think it may be from irritation from her ketoconazole shampoo, but want to make sure it isn't pink eye. Pt report some discomfort to the eye as well. DON DISLA, BESSY [address] [place], [address], [place] [facility] 02/24/2020 12:59:22 OBGyn Episode No OBEpisode recorded.
== END 2025-09-06 17:16 | disposition home or self-care (01) ==
LOC: HO.HMCH 16:01
PROVIDERS: PCP Internal Medicine; Visit Provider Internal Medicine
DX: I10 Essential (primary) hypertension (principal); E78.00 Pure hypercholesterolemia, unspecified; E66.9 Obesity, unspecified; Z68.36 Body mass index [BMI] 36.0-36.9, adult; E03.9 Hypothyroidism, unspecified; N32.81 Overactive bladder; G47.33 Obstructive sleep apnea (adult) (pediatric)

== ENCOUNTER → 2025-09-06 16:00 | Outpatient (BNVA) | payer MEDICARE, MEDICAID, SELFPAY | PROVIDERS: PCP Internal Medicine; Visit Provider Internal Medicine | DX: I10 Essential (primary) hypertension (principal); E78.00 Pure hypercholesterolemia, unspecified; E03.9 Hypothyroidism, unspecified; N32.81 Overactive bladder; G47.33 Obstructive sleep apnea (adult) (pediatric); E66.9 Obesity, unspecified; Z68.36 Body mass index [BMI] 36.0-36.9, adult; Z71.3 Dietary counseling and surveillance | CPT/HCPCS: 99212 ==

== ENCOUNTER 2025-09-11 11:39 | Outpatient (AMB) | payer MEDICARE, MEDICAID, SELFPAY ==
--- NOTE | 2025-09-11 12:00 | MHC.OFFWIV ---
Intake Vital Signs 09/11/25 12:01 Height 5 ft 1 in Weight 193 lb BMI 36.5 BP 122/84 Blood Pressure Location Lt brachial Position Sitting Pulse 64 Pulse Source Pulse Oximeter Pulse Oximetry (%) 96 Oxygen Delivery Method Room Air Intake Visit Reasons: EP-rt foot big toe pain Intake Note: Patient presents c/o right big toe pain x few days. Patient states nail broke. Patient Tobacco Use Status: Never used Tobacco Allergies Penicillins (PENICILLINS) Allergy (Unknown, Verified 09/11/25 12:04) UNKNOWN Medication List - Last Reconciled 09/11/25 by Anika Rubio MD acetaminophen ER (Tylenol Arthritis Pain) 650 mg PO Q8H 30 days ammonium lactate 12% 1 appl topical BID aripiprazole 10 mg PO DAILY atorvastatin (Lipitor) 20 mg PO BEDTIME benztropine mg PO betamethasone dipropionate 0.05% appl topical cholecalciferol (vitamin D3) 50 mcg PO DAILY [CPAP ] divalproex mg PO divalproex 750 mg PO QPM docusate sodium (Colace) 100 mg PO DAILY ketoconazole 2% 1 appl topical ketoconazole 2% appl topical latanoprost 0.005% 1 drp ophthalmic (eye) levothyroxine 100 mcg PO QAM lisinopril 40 mg PO QAM metoprolol succinate ER 100 mg PO DAILY miconazole nitrate 2% (Zeasorb AF) topical mirabegron ER (Myrbetriq) 50 mg PO DAILY 90 days nystatin 1 appl topical BID sennosides (Natural Senna Laxative) 17.2 mg (2 x 8.6 mg) PO BEDTIME timolol maleate 0.5% drps ophthalmic (eye) tolterodine ER 4 mg PO DAILY 90 days trazodone 150 mg PO DAILY triamcinolone acetonide 0.5% 1 appl topical BID Do you need a note to return to daycare/school/sports/work: No HPI EP-rt foot big toe pain HPI Details History of Present Illness The patient is a 70 year old female presenting with pain and redness of the right great toe. Ingrown toenail: - The patient has been experiencing pain and redness in her great toe for a few days. - This is a recurrent issue, with a prior episode approximately two years ago that was treated with nail removal. Social History: - The patient attends a day program / special need Problem List - Ingrown toenail right big toe medial aspect Plan - Prescribed an antibiotic to prevent worsening of the infection - Advised to follow up with a freight checker if the ingrown toenail becomes a recurrent problem. - A letter will be provided upfront for the patient's program. Review of Systems - General: No fever no chills Physical Exam General: No acute distress Extremities: Right foot big toe inflammation, close to nail medially FLASH WELDER: Alert awake Skin: Normal turgor [facility] Medical History Diverticulosis Tubular adenoma of colon Knee pain, left Age-related osteoporosis without current pathological fracture Urinary urgency COVID-19 virus infection Knee pain, bilateral Fatty liver Vitamin D deficiency History of tuberculosis Cataract, right eye B-cell lymphoma Mental and behavioral problem Obesity (BMI 30-39.9) Urinary incontinence Hypercholesterolemia Obstructive sleep apnea Schizophrenia Hypothyroidism Hypertension Surgical History History of cataract surgery Family History Father CVD (cardiovascular disease) Mother CVD (cardiovascular disease) Other Mental health disorder Social History Housing: Apartment Alcohol intake: never Patient Tobacco Use Status: Never used Tobacco Tobacco use type: Cigarette e-Cigarette/Vaping Use: Never Used Second Hand Smoke Exposure: No service: No Current occupational status: disabled Cognitive needs: Yes Hearing needs: No Vision needs: Yes Physical Exam Vital Signs: Last Vital Signs Pulse 64 09/11/25 12:01 BP 122/84 09/11/25 12:01 Pulse Ox 96 09/11/25 12:01 Oxygen Delivery Method Room Air 09/11/25 12:01 BMI result Body Mass Index 36.5 Assessment & Plan Assessment & Plan (1) Ingrown right big toenail: Code(s): L60.0 - Ingrowing nail Plan Ingrown toenail: - The patient has been experiencing pain and redness in her great toe for a few days. - This is a recurrent issue, with a prior episode approximately two years ago that was treated with nail removal. Social History: - The patient attends a day program / special need Problem List - Ingrown toenail right big toe medial aspect Plan - Prescribed an antibiotic to prevent worsening of the infection - Advised to follow up with a freight checker if the ingrown toenail becomes a recurrent problem. - A letter will be provided upfront for the patient's program. Medications: New doxycycline hyclate 100 mg PO BID 14 caps 0RF Coding Level of Care Code Est Pt Level 3 (17465) Diagnoses Ingrown right big toenail L60.0
[2025-09-11 12:01] VITALS: BP 122/84; PULSE 64; O2SAT 96; BMI 36.5
--- OUTSIDE RECORDS SUMMARY | 2025-09-11 22:47 | XMS_ITS | Clinical Summary ---
Author Organization 175 [facility] Address 175 [place] [address] Phone Care Team Providers Care Mailroom Messenger Name Role Phone Barbara Rosales MD Primary Care Provider [phone] Allergies Active Allergy Reactions Criticality Noted Date Comments Penicillins 03/20/2025 Medications No known medications Social History Tobacco Use Types Packs/Day Years [...] Care Team (Late st Contact Info) Description 09/27/2025 8:15 AM EST Office Visit Orthopedic [place] [address] [address] Davin Leiva DPM [address] [address] 11/20/2025 9:30 AM EST Office Visit [facility]opedic [facility] [address] [phone] Davin Leiva DPM [address] [address] Health Maintenance Due Date Last Done Comments Breast Cancer Screening 1955 Colorectal Cancer Screening: Colonoscopy 1955 DTaP,Tdap,and Td Vaccines (1 - Tdap) 02/29/1976 Pneumococcal Vaccine: 50+ Ye ars (1 of 1 - PCV) 2007 Zoster Vaccines (1 of 2) 2007 Depression Screening 10/24/2024 Falls Risk Assessment 01/04/2025 Hepatitis C Screening 01/04/2025 Medicare Annual Wellness Visit 01/04/2025 Osteoporosis Screening (Bone Density Screening) 01/04/2025 Social Influencers of Health Screening 01/04/2025 COVID-19 Vaccine (1 - 2024-2 6 season) 2025 Influenza Vaccine (#1) 2025 RSV Immunization Adult [...] Insurance MEDICARE MEDICAID - [place] Care Teams Mailroom Messenger Relationship Specialty Start Date End Date Barbara Rosales MD [address] [place] [address] [address] [facility] [place] [address] PCP - General Internal Medicine 01/04/25
--- OUTSIDE RECORDS SUMMARY | 2025-09-11 22:47 | XMS_ITS | Data Portability ---
Author Organization [place] [facility] Address [address] [place] [address] Care Team Providers Care Operations Section Manager Name Role Phone COREYKURTIS Primary Care Provider Assessment Encounter Date Assessment Date Assessment LastModified by Organization Details LastModified Time 02/23/2020 02/23/2020 Overview/History : Pt is a 64yo F with PMH sig for CAD, HLD, HTN, LIMA and mild intellectual disablity. Pt resides at a correction. Staff state pt has been c/o of [...] XR, ankle, 3 or more view 2019 [facility] ([facility]), [address] [place] [address], [place], [address], 0 16:36:38 Medication Orders erythromyc in 5 mg/gram (0.5 %) eye ointment 2019 020 INTERFACE [facility], [address] [place] [address], [id number], 0 15:28:50 Patient TargetsNo targets recorded. Patient Instructions Encounter Date Encounter Id Patient Instructions Last Modified By Organization Details Last Modified Time 02/23/2020 [id number] Thank you for yo ur visit with [facility] today. You do not appear to have [...] be completing the exam listed above is: [employer] While you wait comfortably at home, you can expect a [employer] technologist to call you 30-45 minutes prior to arrival. Should you need to make special scheduling arrangements please call the number listed above and ask to speak with a [employer] dispatcher. For your convenience, you can also request your technologist s Estimated Time of Arrival (ETA) by calling the number listed above. Once requested, a [employer] dispatcher will call you back to let you know what time frame to expect the technologist to arrive within. Once your x-ray is completed, a radiologist will evaluate the test and interpret the results. Once the final report is received by [facility] [place] [facility] from the reading radiologist a [facility] provider will call with the results. If you develop any new or worsening symptoms and need after hours care, please go to nearest ER and/or call 911. If you have additional concerns or develop a change in your condition between 8am-10pm, please call [facility] [place] [facility] at [phone] to help navigate your care. Ankle Sprain [...] medicine, you may want to take an zmxo-neg-smnqwmc stool softener (like Ducosate Sodium) twice per [...] with your big toe. The Nurse Practitioner (DEVELOPMENT TECHNICAL LEAD) will show you how to do this. [...] ice bag and you skin. Compression: The DEVELOPMENT TECHNICAL LEAD may recommend an aldo wrap for comfort [...] suddenly worse or is not helped with ahlu-jwa-ldqwisi or prescription medications. 2) Your toes become [...] condition between 8am-10pm, please call [facility] at [phone] to help navigate your care. [email or web address] Not [...] ROE M.D. 02/25/20 11:46: 23 AM EDT. [facility] ([facility]) [address] [facility] [place], [address], 02/26/2020 10:17:38 Result Notes None recorded. Problems Name Problem SNOMED Code Status Onset Date Resolution Date Notes Provider Name and Address Organization Details Recorded Time Hyperlipidemi a 82765652 Active 2019 DON DISLA NP [address] [facility] [place], [address], [place] [facility] 0 15:11:59 Problem Notes None recorded. Medical Equipment None Reported. Allergies Allergen ID Allergen Name Allergen Category Reaction Reaction Severity Criticality Documentation Date Start Date Code Code System Note Provider Name and Address Organization Details Recorded Time 694843 Product containin g penicilli n (product) medicatio n Not available Not available Not available 02/23/2020 58156 8001 SNOMED DON DISLA , DEVELOPMENT TECHNICAL LEAD [address], [place], [address], [place] [facility] 0 15:11:48 Medications Name Sig Start [...] Smoker DON DISLA, BESSY [address], [place], [address], [place] [facility] 02/23/2020 15:13:57 Do You Have An Advance Directive? Yes Information not available 02/23/2020 What Is Your Code Status? Full Code Information not available 02/23/2020 Excessive Alcohol Or Drug Use No Information not available 02/23/2020 Sex: Unknown Functional Status None recorded. Mental Status None recorded. Family History Nothing Reported Notes:unk fm pt resides at a [facility] home Medical History Condition Response Diabetes N Coronary Artery Disease Y High Cholesterol Y Pulmonary Embolism N Cancer N Hypertension Y Stroke N Asthma N COPD N Depression Y Kidney Disease N Gynecological HistoryNo gynecological history recorded. Obstetrics History GPAL:G 0 P 0 0 0 0 Past Encounters Encounter ID Performer Location Encounter Start Date Encounter Closed Date Diagnosis/Indication Diagnosis SNOMED-CT Code Diagnosis ICD10 Code Diagnosis IMO Codes Diagnosis Note [id number] DON DISLA NP [facility] [address] [facility] [place] [address] 02/23/2020 15:07:33 02/25/2020 19:53:05 Pain of left ankle joint 8692659218 2070022 M25.572 Bacterial conjunctivitis 156828494 H10.9 Health Concerns Section Related Observation LastModified by Organization Detai ls LastModified Time None Recorded Concern Status LastModified by Organization Details LastModified Time None Recorded Advance Directives Directive Y: Payers Insurance Date Sequence Insurance Name Policy Number Policy Yanez Covered Member ID Yanez Member ID Guarantor Name 02/23/2020 1 *SELF PAY* Shelby Nieves [id number] Shelby Koch i 07/07/2020 2 [place] [facility] Shelby Nieves [id number] Shelby Dugganr i 03/04/2021 2 [place] Shelby Zhang [id number] Shelby Nieves-Elsie i 07/21/2020 2 [place] [facility] Nieves [id number] Shelby Nieves-Rodr i 07/07/2020 1 [place] Shelby Nieves [id number] Shelby Nieves-Rodr i 07/07/2020 2 [place] [facility] Shelby Nieves [id number] Shelby Nieves-Rodr i 06/15/2021 1 [place] [employer] Shelby Koch i [id number] Shelby Koch i Notes Date Note Type Note Provider Name and Address Organization Details Recorded Time 02/23/2020 text/html Pt has been c/o pain in her left ankle, today one of the cg at the [facility] home noted some sores on the ankle. States that she has been getting ammonium lactacte cream. Her left eye is also red, staff think it may be from irritation from her ketoconazole shampoo, but want to make sure it isn't pink eye. Pt report some discomfort to the eye as well. DON DISLA, BESSY [address] [place], [address], [place] [facility] 02/24/2020 12:59:22 OBGyn Episode No OBEpisode recorded.
--- OUTSIDE RECORDS SUMMARY | 2025-09-11 22:47 | XMS_ITS | Patient Health Record ---
Author Organization [facility] Address [address] [place] [address] Care Team Providers Care Cadworx Piping Designer Name Role Phone Barbara Rosales MD Primary Care Provider Luis Arellano [phone] Allergies Allergen (clinical drug ingredient) Drug/Non Drug Allergy documented on EMR Reaction Allergy Type Onset Date Status Penicillin Unknown Drug Allergy Active Reason For Referral No Information Medications Medication SIG (Take, Route, Frequency, Duration) Notes Start Date End Date Status Robitussin DM 100-10 MG/5ML Syrup 10 ml as needed Orally every 4 hrs Active Tylenol 1 tab Oral Active Triple Antibiotic/Lidocaine Active Dulcolax (colon prep) 5 MG Tablet Delayed Release take at 3:00 p.m and 7:00p.m. Orally two tablets twice a day for one day; Duration: 1 day 09/16/2019 Active MiraLax (colon prep) 8.3 ounce ((238) grams mixed with Gatorade or Crystal Light orally begin at 5:00 p.m. the day before the procedure; Duration: 1 day 09/16/2019 Active Multi Vitamin/Minerals Tablet Orally Active Atorvastatin Calcium 10 MG Tablet 1 tablet Orally Once a day; Duration: 30 day(s) Active Depakote 500 MG Tablet Delayed Release 1 tablet Orally Once a day Active oxyBUTYnin Chloride 5 MG Tablet Orally Active Zestril 40 MG Tablet 1 tablet Orally Onc e a day Active Levoxyl Active Bystolic 5 MG Tablet 1 tablet Orally Onc e a day Active Calcium + D 600-200 MG-UNIT Tablet 1 tablet with food Orally Once a day Active traZODone HCl 150 MG Tablet 1 tablet at bedtime Orally Once a day Active Desonide 0.05 % Cream 1 application to a ffected area Externally Twice a day Active Abilify 5 MG Tablet 1 tablet Orally Once a day Active Colace 100 MG Capsule 1 capsule as neede d Orally Once a day Active Immunizations Vaccine Route Administration Date Status Comme nts Influenza Unknown 06/24/2019 Administered Social History Social History Additional Details Category Social Info Options Details Miscellaneous: Marital status: single Occupation: disabled Living with: [facility] Section Notes: Nonsmoker; no alcohol Nonsmoker; no alcohol Problems Problem Type SNOMED Code ICD Code Onset Dates Problem Status W/U Status Risk Notes Problem Screening for malignant neoplasm of colon (887559063) Encounter for screening for malignant neoplasm of colon (Z12.11) Active confirmed Problem History of adenomatous polyp of colon (324177527) Hx of adenomatous colonic polyps (Z86.010) Active confirmed Plan Of Treatment Pending Test Test Name Order Date GI BIOPSY 11/30/2019 Future Test Test Name Order Date COLONOSCOPY 06/13/2014 COLONOSCOPY 09/14/2019 Insurance Providers Payer Name Payer Address Payer Phone Subscriber Number Group Number Insured Name Patient Relationship to Insured Coverage Start Date Coverage End Date MEDICARE OF [place] [address] [place] [address] [id number] HOMERO SKELTON Self - patient is the insured [facility] [address] [place] [address] [phone] [id number] HOMERO SKELTON Self - patient is the insured Medical (General) History Medical History History ICD Code Colonoscopy, 12/2008---hyperp lastic polyp and a tubular adenoma, diverticulosis, and internal hemorrhoids Schizophrenia Hypothyroidism Hypertension Hyperlipidemia Anxiety Depression Denies KS,DM,CVA,Lung disease,renal dise ase Sleep apnea--uses CPAP Urinary incontinence Neg. colonoscopy in 07/2014 Surgical History Surgery Date(Month/Year) Eye surgery
== END 2025-09-11 12:14 | disposition home or self-care (01) ==
PROVIDERS: PCP Internal Medicine; Visit Provider Internal Medicine
DX: L60.0 Ingrowing nail (principal)

== ENCOUNTER → 2025-09-11 11:39 | Outpatient (BNVA) | payer MEDICARE, MEDICAID, SELFPAY | PROVIDERS: PCP Internal Medicine | DX: L60.0 Ingrowing nail (principal) | CPT/HCPCS: 99212 ==

== ENCOUNTER 2025-09-23 12:45 | Outpatient (AMB) | payer MEDICARE, MEDICAID, SELFPAY ==
--- NOTE | 2025-09-23 12:53 | MHC.OFFVIS ---
Intake Visit Reasons: 6m Steward/Stewardess Lounge Required: Yes Steward/Stewardess Lounge Name: #[id number] Accompanied by: staff member Allergies Penicillins (PENICILLINS) Allergy (Unknown, Verified 09/23/25 12:56) UNKNOWN Medication List - Last Reconciled 09/23/25 by Mirella Maria CNP acetaminophen ER (Tylenol Arthritis Pain) 650 mg PO Q8H 30 days ammonium lactate 12% 1 appl topical BID aripiprazole 10 mg PO DAILY atorvastatin (Lipitor) 20 mg PO BEDTIME benztropine mg PO BID betamethasone dipropionate 0.05% appl topical cholecalciferol (vitamin D3) 50 mcg PO DAILY [CPAP ] divalproex mg PO divalproex 750 mg PO QPM docusate sodium (Colace) 100 mg PO DAILY doxycycline hyclate 100 mg PO BID ketoconazole 2% 1 appl topical ketoconazole 2% appl topical latanoprost 0.005% 1 drp ophthalmic (eye) levothyroxine 100 mcg PO QAM lisinopril 40 mg PO QAM metoprolol succinate ER 100 mg PO DAILY miconazole nitrate 2% (Zeasorb AF) topical mirabegron ER (Myrbetriq) 50 mg PO DAILY 90 days nystatin 1 appl topical BID sennosides (Natural Senna Laxative) 17.2 mg (2 x 8.6 mg) PO BEDTIME timolol maleate 0.5% drps ophthalmic (eye) tolterodine ER 4 mg PO DAILY 90 days trazodone 150 mg PO DAILY triamcinolone acetonide 0.5% 1 appl topical BID HPI Comments Details: 70-year-old woman with psychotic depression and parkinsonism. She was doing okay. Tremor was about the same. No functional impairment. No difficulty eating, drinking, or swallowing. Balance was off at times, but no falls. Sleep was okay. [facility] Medical History Diverticulosis Tubular adenoma of colon Knee pain, left Age-related osteoporosis without current pathological fracture Urinary urgency COVID-19 virus infection Knee pain, bilateral Fatty liver Vitamin D deficiency History of tuberculosis Cataract, right eye B-cell lymphoma Mental and behavioral problem Obesity (BMI 30-39.9) Urinary incontinence Hypercholesterolemia Obstructive sleep apnea Schizophrenia Hypothyroidism Hypertension Surgical History History of cataract surgery Family History Father CVD (cardiovascular disease) Mother CVD (cardiovascular disease) Other Mental health disorder Social History Housing: Apartment Alcohol intake: never Patient Tobacco Use Status: Never used Tobacco Tobacco use type: Cigarette e-Cigarette/Vaping Use: Never Used Second Hand Smoke Exposure: No service: No Current occupational status: disabled Cognitive needs: Yes Hearing needs: No Vision needs: Yes Review of Systems Const Denies chills, Denies daytime sleepiness, Denies difficulty sleeping, Denies fatigue, Denies fever(s), Denies frequent falls, Denies headache(s), Denies increased appetite, Denies poor appetite, Denies snoring, Denies weakness, Denies weight gain and Denies weight loss Eyes Denies loss of vision ENT Denies vertigo, Denies dizziness and Denies headache(s) Card Denies chest pain at rest, Denies chest pain with activity, Denies syncope, Denies leg edema and Denies palpitations Resp Denies snoring GI Denies constipation, Denies heartburn, Denies diarrhea and Denies nausea Denies urinary frequency, Reports urinary incontinence and Denies urinary urgency Musc Denies abnormal gait, Denies numbness and Denies tingling Skin/Breast Denies dry skin and Denies rash Neuro Denies abnormal gait, Denies vertigo, Denies dizziness, Denies syncope, Denies frequent falls, Denies headache(s), Denies lack of coordination, Denies loss of vision, Denies memory loss, Denies numbness, Denies restless legs, Denies seizure-like activity, Denies tingling, Denies paresthesias, Reports tremor(s) and Denies weakness Psych Denies anxiety, Denies depression, Denies auditory hallucinations, Denies memory loss, Denies visual hallucinations and Denies suicidal ideation Endo Denies fatigue and Denies palpitations Physical Exam Const Other: General Appearance:? normal, in no acute distress. Skin:? no rashes, no significant birthmarks. Heart:? S1, S2 normal, no murmurs. Lungs:? clear anteriorly and posteriorly. Extremities:? no edema. Psych:? alert, oriented, cognitive function intact, cooperative with exam. Neuro Other: Mental Status:?Normal attention, orientation, and flat affect.? Cranial Nerves:?Pupils are equal, round and reactive to light. External occular muscles are intact. Visual saldana are full. Face is symmetrical. Facial sensations are normal. Tongue is midline. Palate elevates symmetrically. Shoulder shrugging is normal. Hearing to bedside conversation is normal. Sensory Exam:?....? Coordination:?No ataxia,?no titubation.? Gait Exam: Within normal limits. Extrapyramidal System:?Decreased facial expressions and blinking. Slight forward flexion of the neck. Pronator Drift:?Not present.? Involuntary Movements:?Mild hand tremor. Speech:?Normal.? Assessment & Plan Assessment & Plan (1) Parkinsonism: Code(s): G20 - Parkinson's disease Category: Medical Qualifiers: Parkinsonism type: unspecified Qualified Code(s): G20.C - Parkinsonism, unspecified Plan: Continue benztropine 0.5mg 1 tablet twice a day. Follow up in 6 months or sooner as needed. Coding Level of Care Code Est Pt Level 3 (91074) Diagnoses Parkinsonism, unspecified Parkinsonism type G20.C Parkinsonism type: unspecified
--- OUTSIDE RECORDS SUMMARY | 2025-09-23 16:22 | XMS_ITS | Data Portability ---
Author Organization [facility] Address [address] [place] [address] Care Team Providers Care Transportation Agent Name Role Phone COREYKURTIS Primary Care Provider [...] XR, ankle, 3 or more view 2019 [email or web address] [facility] ([facility]), [address] [place] [address], [place], [address], 0 16:36:38 Medication Orders erythromyc in 5 mg/gram (0.5 %) eye ointment 2019 020 INTERFACE [facility], [address] [place] [address], [id number], 0 15:28:50 Patient TargetsNo targets recorded. Patient Instructions Encounter Date Encounter Id Patient Instructions Last Modified By Organization Details Last Modified Time 02/23/2020 [id number] Thank you for yo ur visit with [facility] today. You do not appear to have [...] be completing the exam listed above is: [employer] While you wait comfortably at home, you can expect a [employer] technologist to call you 30-45 minutes prior to arrival. Should you need to make special scheduling arrangements please call the number listed above and ask to speak with a [employer] dispatcher. For your convenience, you can also request your technologist s Estimated Time of Arrival (ETA) by calling the number listed above. Once requested, a [employer] dispatcher will call you back to let you know what time frame to expect the technologist to arrive within. Once your x-ray is completed, a radiologist will evaluate the test and interpret the results. Once [facility] from the reading radiologist a [facility] provider will call with the results. If you develop any new or worsening symptoms and need after hours care, please go to nearest ER and/or call 911. If you have additional concerns or develop a change in your condition between 8am-10pm, please [facility] at [phone] to help navigate your care. Ankle Sprain [...] medicine, you may want to take an ibzl-plz-suzmzmy stool softener (like Ducosate Sodium) twice per [...] with your big toe. The Nurse Practitioner (AUTO TECHNICIAN) will show you how to do this. [...] ice bag and you skin. Compression: The AUTO TECHNICIAN may recommend an aldo wrap for comfort [...] suddenly worse or is not helped with ipjd-rrk-weysjqv or prescription medications. 2) Your toes become [...] condition between 8am-10pm, please call [facility] at [phone] to help navigate your care. [email or web address] Not [...] ROE M.D. 02/25/20 11:46: 23 AM EDT. [email or web address] [facility] ([facility]) [address] [facility] [place], [address], 02/26/2020 10:17:38 Result Notes None recorded. Problems Name Problem SNOMED Code Status Onset Date Resolution Date Notes Provider Name and Address Organization Details Recorded Time Hyperlipidemi a 88349580 Active 2019 DON DISLA NP [address] [facility] [place], [address], [place] [facility] 0 15:11:59 Problem Notes None recorded. Medical Equipment None Reported. Allergies Allergen ID Allergen Name Allergen Category Reaction Reaction Severity Criticality Documentation Date Start Date Code Code System Note Provider Name and Address Organization Details Recorded Time 293097 Product containin g penicilli n (product) medicatio n Not available Not available Not available 02/23/2020 33314 8001 SNOMED DON DISLA , AUTO TECHNICIAN [address], [place], [address], [place] [facility] [place] 0 15:11:48 Medications Name Sig Start Date [...] Smoker DON DISLA, BESSY [address], [place], [address], [place] [facility] 02/23/2020 15:13:57 Do You Have An Advance Directive? Yes Information not available 02/23/2020 What Is Your Code Status? Full Code Information not available 02/23/2020 Excessive Alcohol Or Drug Use No Information not available 02/23/2020 Sex: Unknown Functional Status None recorded. Mental Status None recorded. Family History Nothing Reported Notes:unk [facility]mh pt resides at a [facility] home Medical History Condition Response [...] ICD10 Code Diagnosis IMO Codes Diagnosis Note [id number] DON DISLA NP [facility] [address] [place] [address] 02/23/2020 15:07:33 02/25/2020 19:53:05 Pain of left ankle joint 7864922323 3041040 M25.572 Bacterial conjunctivitis 233754383 H10.9 Health Concerns Section Related Observation LastModified by Organization Detai ls LastModified Time None Recorded Concern Status LastModified by Organization Details LastModified Time None Recorded Advance Directives Directive Y: Payers Insurance Date Sequence Insurance Name Policy Number Policy Yanez Covered Member ID Yanez Member ID Guarantor Name 02/23/2020 1 *SELF PAY* Shelby Nieves [id number] Shelby Koch i 07/07/2020 2 [place] [facility] Shelby Nieves [id number] Shelby Dugganr i 03/04/2021 2 [place] Shelby Zhang [id number] Shelby Nieves-Elsie i 07/21/2020 2 [place] [facility] Shelby Nieves [id number] Shelby Nieves-Rodr i 07/07/2020 1 [place] Shelby Nieves [id number] Shelby Nieves-Rodr i 07/07/2020 2 [place] [facility] Shelby Nieves [id number] Shelby Nieves-Rodr i 06/15/2021 1 [place] [employer] Shelby Koch i [id number] Shelby Koch i Notes Date Note Type Note Provider Name and Address Organization Details Recorded Time 02/23/2020 text/html Pt has been c/o pain in her left ankle, today one of the cg at the [facility] home noted some sores on the ankle. States that she has been getting ammonium lactacte cream. Her left eye is also red, staff think it may be from irritation from her ketoconazole shampoo, but want to make sure it isn't pink eye. Pt report some discomfort to the eye as well. DON DISLA, BESSY [address] [place], [address], [place] [facility] 02/24/2020 12:59:22 OBGyn Episode No OBEpisode recorded.
--- OUTSIDE RECORDS SUMMARY | 2025-09-23 16:22 | XMS_ITS | Clinical Summary ---
Author Organization [address] [facility] Address [address] [place] [address] Phone Care Team Providers Care Rn Pacu Name Role Phone Barbara Rosales MD Primary Care Provider [phone] Allergies Active Allergy Reactions Criticality Noted Date [...] 8:15 AM EST Office Visit Orthopedic Surgery [place] [address] [phone] Davin Leiva DPM [address] [phone] 11/20/2025 9:30 AM EST Office Visit Orthopedic [facility] [address] [id number] Davin Leiva DPM [address] [phone] Health Maintenance Due Date Last [...] Insurance MEDICARE MEDICAID - [place] Care Teams Rn Pacu Relationship Specialty Start Date End Date Barbara Rosales MD [address] [place] [address] [address] [facility] [place] [address] PCP - General Internal Medicine 01/04/25
== END 2025-09-23 13:06 | disposition home or self-care (01) ==
LOC: HO.HSM 12:46
PROVIDERS: PCP Internal Medicine; Referring Provider Internal Medicine; Visit Provider Registered Nurse
DX: G20.C Parkinsonism, unspecified (principal)
CPT/HCPCS: 99213

== ENCOUNTER → 2025-09-23 12:45 | Outpatient (BNVA) | payer MEDICARE, MEDICAID, SELFPAY | PROVIDERS: PCP Internal Medicine; Referring Provider Internal Medicine; Visit Provider Registered Nurse | DX: G20.A1 Parkinson's disease without dyskinesia, without mention of fluctuations (principal); F02.80 Dementia in other diseases classified elsewhere, unspecified severity, without behavioral disturbance, psychotic disturbance, mood disturbance, and anxiety | CPT/HCPCS: 99212 ==